=== PATIENT | male | born 1965 | race Caucasian/White ===

== ENCOUNTER 2021-01-08 14:27 | Inpatient (IN) ==
[2021-01-08] MEDS ORDERED: ONDANSETRON INJ 2 MG/ML 2 ML VIAL IV STA (15:01)
[2021-01-08] MEDS ORDERED: MULTI-VITAMIN INFUSION 10 ML, THIAMINE HCL 100 MG, FOLIC ACID 1 MG in SODIUM CHLORIDE 0... IV ONE (15:01)
[2021-01-08] MEDS ORDERED: LORazepam 2 MG/4 ML VIAL IV STA ×2 (15:01→17:12)
[2021-01-08 16:08] LABS: INR 1.1 (0.9-1.1); Prothrombin Time 10.9 Seconds (9.0-12.0)
[2021-01-08 16:16] LABS: Albumin Level 3.2 gm/dl (3.4-5.0); BUN Creatinine Ratio 22.8 (10-20); Blood Urea Nitrogen 26 mg/dl (7-18); Carbon Dioxide 24 mmol/L (21-32); Chloride 110 mmol/L (98-107); Est GFR (African American) 83.4 ml/min; Glucose 116 mg/dl (70-99); Potassium 4.7 mmol/L (3.5-5.1); Sodium 141 mmol/L (136-145)
[2021-01-08 16:25] LABS: Alanine Aminotransferase 30 U/L (12-78); Albumin Globulin Ratio 0.9 (0.9-2); Alkaline Phosphatase 81 U/L (45-117); Aspartate Aminotransferase 48 U/L (15-37); Bilirubin,Total 1.5 mg/dl (0.2-1); Globulin 3.6 gm/dl (2.5-4.0); Total Protein 6.8 gm/dl (6.4-8.2)
[2021-01-08 17:06] LABS: Basophils # (auto) 0.01 K/uL (0-0.2); Basophils % (auto) 0.1 %; Eosinophils # (auto) 0.05 K/uL (0-0.5); Eosinophils % (auto) 0.6 %; Hemoglobin 12.6 g/dL (14.0-18.0); Immature Granulocytes # (auto) 0.03 K/uL (0.00-0.02); Immature Granulocytes % (auto) 0.4 %; Lymphocytes # (auto) 0.79 K/uL (1.2-3.4); Mean Corpuscular Hemoglobin 34.4 pg (25-34); Mean Corpuscular Volume 98.4 fL (80-100); Mean Platelet Volume 9.7 fL (7.4-10.4); Monocytes # (auto) 0.56 K/uL (0.11-0.59); Monocytes % (auto) 7.1 %; Neutrophils # (auto) 6.43 K/uL (1.4-6.5); Neutrophils % (auto) 81.8 %; Platelet Count 161 K/uL (130-400); RDW Coefficient of Variation 13.6 % (11.5-14.5); Red Blood Count 3.66 M/uL (4.7-6.1); White Blood Count 7.87 K/uL (4.8-10.8)
[2021-01-08] MEDS ORDERED: GABAPENTIN 600 MG TAB PO ONE (17:12)
[2021-01-08] MEDS ORDERED: GABAPENTIN 1200MG ALCOHOL WITHDRAWAL LOAD PO STA ×2 (17:12→20:32)
--- NOTE | 2021-01-08 18:25 | History & Physical Report ---
Date of Service January 08, 2021 Assessment & Plan (1) Alcohol withdrawal: 29 hours after last alcohol drink on admission Chlordiazepoxide (hold for sedation) and gabapentin taper Lorazepam 1-3mg PO/IV PRN for symptoms per AWSS (2) Obstructive sleep apnea: May use own CPAP (3) Hyperlipidemia: Continue gabapentin 40mg PO TID (4) Hypertension: Continue lisinopril 10mg PO daily (5) Anxiety and depression: Continue sertraline 100mg PO daily Admission and Anticipated Discharge Date Admission Date: January 08, 2021 History of Present Illness Chief Complaint: Alcohol withdrawal Primary Care Provider: NO PCP Murray Hodge is a 55 year old male who presents to the ER with due to alcohol withdrawal. Last drink around 1pm. Drinking Wed -Wednesday "couple of pints of vodka a day". Previous alcohol withdrawals with hospitalization lasting a few days, outpatient rehabilitation and detox facilities requiring medication. No alcohol withdrawal seizures and never intubated. Having anxiety, tremors, shaking, sweating chills, nausea, diarrhea. Improved with lorazepam given in ER but feels it is wearing off after 1 hour of being given in the ER. Withdrawals normally last 2 days. No current hallucinations or confusion. 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 Allergies Allergy/AdvReac Type Severity Reaction Status Date / Time No Known Allergies Allergy Unverified 01/08/21 16:51 Home Medications Medication Instructions Recorded Confirmed Type atorvastatin 40 mg PO QAM 01/08/21 01/08/21 History gabapentin 300 mg PO TID 01/08/21 01/08/21 History lisinopril 10 mg PO QAM 01/08/21 01/08/21 History naproxen sodium [Aleve] 660 mg PO QAM 01/08/21 01/08/21 History omega-3 fatty acids [Fish Oil 1,000 mg PO QAM 01/08/21 01/08/21 History Concentrate] sertraline 100 mg PO QAM 01/08/21 01/08/21 History Past Med/Surg History Medical History (Updated 01/08/21 @ 18:49 by Santi Romo MD) Alcohol dependence Anxiety and depression Hyperlipidemia Hypertension Obstructive sleep apnea Surgical History (Updated 01/08/21 @ 18:38 by Santi Romo MD) H/O knee surgery ACL left, meniscus repair right History of back surgery discectomy History of nasal surgery broken nose Family History Other Family history non-contributory Social History (Updated 01/08/21 @ 18:39 by Santi Romo MD) Smoking Status: Former smoker Do You Dip or Chew Tobacco: No; Hx Alcohol Use: Yes Alcohol type: hard liquor Hx Substance Use: No Beliefs That Will Affect Care: None marital status: Current Living Situation: Family Other Information That Helps Us Care for You: No Feels Safe at Home: Yes Safety Concerns: Feels Safe At This Time Assistive Devices: CPAP Review of Systems Review of Systems: All systems reviewed & are unremarkable except as noted in HPI & below Physical Exam Constitutional: well developed and + morbidly obese; + not well nourished and no acute distress Eyes: PERRL, conjunctivae normal, anicteric sclerae ENMT: external ear and nose normal, oropharynx normal Respiratory: normal respiratory effort, lungs clear to auscultation Cardiovascular: Rate/Rhythm: regular rhythm and + tachycardic Heart Sounds: no murmur Vessels: no JVD Extremities: normal capillary refill; no calf tenderness and no pedal edema Gastrointestinal (Abdomen): normal bowel sounds, soft, nontender, no hepatosplenomegaly Musculoskeletal: no cyanosis or clubbing, extremities motor strength 5/5 Skin: no rashes, warm and dry Neurologic: moves all extremities and awake; no focal motor deficits and not confused Speech / Cognition: normal speech Motor/Sensory: no tremor Cranial Nerves: PERRL, EOM intact bilaterally, normal facial strength, able to elevate shoulders bilaterally and no nystagmus Psychiatric: A+Ox3, euthymic affect Results & Data Results & Data ([place]) Vital Signs (Past 12 Hours) Vital Signs Temp Pulse Pulse Resp BP BP Pulse Ox 01/08/21 17:19 125 H 25 H 173/91 H 94 01/08/21 14:29 36.0 C L 91 H 22 178/80 H 95 Diagnostic Findings XR chest 1V portable IMPRESSION: No acute process. Medications Administered ER Medications Given: Gabapentin 1200mg PO Lorazepam 2mg IV x2 Banana Bag Ondansetron 4mg IV Code Status & VTE Plan Code Status Full VTE Prophylaxis Plan VTE Prophylaxis will be ordered: No Reason for no VTE drug order: Treatment not indicated Reason for no VTE mechanical prophylaxis: Treatment not indicated PG Care Time/CCT Total # of Minutes Spent Total Time Spent with Patient: Total time spent is greater than 50% in coordination of care (as documented) at patient's floor/unit and/or counseling patient: Coding Level of Care Code 03190 Initial Inpt Care Lvl 2 Diagnoses Alcohol withdrawal F10.230 Complication of substance-induced condition: uncomplicated Obstructive sleep apnea G47.33 Hyperlipidemia E78.5 Hyperlipidemia type: unspecified Hypertension I10 Hypertension type: essential hypertension Anxiety and depression F41.9; F32.9 (1) Alcohol withdrawal Complication of substance-induced condition: uncomplicated Qualified Code(s): F10.230 - Alcohol dependence with withdrawal, uncomplicated (2) Hyperlipidemia Hyperlipidemia type: unspecified Qualified Code(s): E78.5 - Hyperlipidemia, unspecified (3) Hypertension Hypertension type: essential hypertension Qualified Code(s): I10 - Essential (primary) hypertension
[2021-01-08] MEDS ORDERED: chlordiazePOXIDE HCl 25 MG CAP PO STA (18:36)
--- NOTE | 2021-01-08 20:15 | XRay Report ---
XR chest 1V portable HISTORY: 55 years-old Male tachypnea acute tachypnea. COMPARISON: 11/17/2020 TECHNIQUE: Portable AP view of the chest FINDINGS: Moderate cardiomegaly. No pneumothorax, pleural effusion, airspace consolidation or overt pulmonary e mel. Bones of the chest appear grossly intact. IMPRESSION: No acute process. ACT 112: Negative or not required by law. The above report was generated using voice recognition software. It may contain grammatical, syntax o r spelling errors. Electronically signed by: Pierce Livingston M.D. 01/08/2021 8:14 PM
[2021-01-08] MEDS ORDERED: ATIVAN IV ALCOHOL WITHDRAWL IV PRN (20:32)
[2021-01-08] MEDS ORDERED: chlordiazePOXIDE ALCOHOL WITHDRAWL 50MG PO STA (20:32)
[2021-01-08] MEDS ORDERED: LORazepam 3 MG/6 ML VIAL IV PRN (20:32)
[2021-01-08] MEDS ORDERED: POLYETHYLENE (MIRALAX) 17 GM PACK PO PRN (20:32)
[2021-01-08] MEDS ORDERED: LORazepam 1 MG TAB PO PRN (20:32)
[2021-01-08] MEDS ORDERED: LORazepam 2 MG/4 ML VIAL IV PRN (20:32)
[2021-01-08] MEDS ORDERED: ONDANSETRON INJ 2 MG/ML 2 ML VIAL IV PRN (20:32)
[2021-01-08] MEDS ORDERED: ACETAMINOPHEN 325 MG TAB PO PRN (20:32)
--- NOTE | 2021-01-08 20:54 | Emergency Department Note ---
History of Present Illness General Chief complaint: Alcohol Withdrawal Stated complaint: ALCHOHOL WITHDRAWAL Source: patient, family () and RN notes reviewed Mode of arrival: ambulatory Limitations: no limitations History of Present Illness Provider complaint: Alcohol withdrawal Maximum Pain Intensity: 8 This pt is a 56 yo male who presents to the ED with c/o ETOH withdrawal. Pt is apparently in this area for work and his family lives in [place]. He did not show up for his son's HS graduation, so his became concerned as he has a h/o heavy ETOH use. arrived to find him "passed out" in bed, with several empty vodka bottles in the apartment. She refused to let him get more and he is now shaking. He has done this in the past, but denies ETOH w/d seizures. Home Medications Medication Instructions Recorded Confirmed Type atorvastatin 40 mg PO QAM 01/08/21 01/08/21 History lisinopril 10 mg PO QAM 01/08/21 01/08/21 History naproxen sodium [Aleve] 660 mg PO QAM 01/08/21 01/08/21 History omega-3 fatty acids [Fish Oil 1,000 mg PO QAM 01/08/21 01/08/21 History Concentrate] sertraline 100 mg PO QAM 01/08/21 01/08/21 History chlordiazepoxide HCl 25 mg PO Q12H PRN #8 cap 01/10/21 Rx Allergies Allergy/AdvReac Type Severity Reaction Status Date / Time No Known Allergies Allergy Unverified 01/08/21 16:51 Past Med/Surg History Medical History Alcohol dependence Anxiety and depression Hyperlipidemia Hypertension Obstructive sleep apnea Surgical History H/O knee surgery ACL left, meniscus repair right History of back surgery discectomy History of nasal surgery broken nose Family History Other Family history non-contributory Social History Smoking Status: Former smoker Hx Alcohol Use: Yes Alcohol type: hard liquor Hx Substance Use: No Communication Ability: Effective Beliefs That Will Affect Care: None marital status: Current Living Situation: Family Feels Safe at Home: Yes Assistive Devices: CPAP Review of Systems See HPI for pertinent positives & negatives. and A total of 10 systems reviewed and were otherwise negative Physical Exam Vital Signs Vital Signs - 24 hr 01/08/21 14:29 01/08/21 17:19 01/08/21 18:32 Temperature 36.0 C L Temperature Source Temporal Artery Scan Pulse Rate 91 H Pulse Rate [Right Finger] 125 H 108 H Respiratory Rate 22 25 H 20 Respiratory Effort / Characteristics Non-Labored Spontaneous Spontaneous Non-Labored Spontaneous Respiratory Depth Normal Normal Blood Pressure 178/80 H Blood Pressure [Right Arm] 173/91 H 146/81 H Blood Pressure Mean 112 Blood Pressure Mean [Right Arm] 118 102 Blood Pressure Position [Right Arm] Lying Lying Pulse Oximetry 95 94 94 Oxygen Delivery Method Room Air Room Air Room Air Sepsis Recent Fever Within 48 Hours No Sepsis New/Unexplained Change in Mental Status N/A Sepsis Action Taken by Nursing No Action Required Vital signs reviewed. tachycardia, hypertensive General: Disheveled 56 yo obese male, shaking HEENT: No scleral icterus, PERRLA, neck supple. Atraumatic. Cardiovascular: Regular but tachycardic, no extra sounds. Pulmonary: Clear to auscultation bilaterally, normal work of breathing. Abdomen: Soft, nontender, nondistended, positive bowel sounds. Musculoskeletal: Atraumatic, no peripheral edema. Neurologic: Patient awake alert and oriented x 3 Skin: Warm, diaphoretic, no rash Course Administered Medications Discontinued Medications Atorvastatin Calcium (Atorvastatin 40 Mg Tab) 40 mg PO QAM [facility] Stop: 02/08/21 08:59 Last Admin: 01/10/21 09:04 Dose: 40 mg Documented by: [id number] Admin: 01/09/21 08:26 Dose: 40 mg Documented by: [id number] Chlordiazepoxide HCl (Chlordiazepoxide Hcl 25 Mg Cap) 50 mg PO NOW STA Stop: 01/08/21 18:37 Last Admin: 01/08/21 19:18 Dose: 50 mg Documented by: [id number] Chlordiazepoxide HCl (Chlordiazepoxide Hcl 25 Mg Cap) 50 mg PO Q8H [facility]; Taper Stop: 01/11/21 17:59 Last Admin: 01/10/21 09:05 Dose: 50 mg Documented by: [id number] Admin: 01/10/21 01:33 Dose: 50 mg Documented by: [id number] Admin: 01/09/21 17:55 Dose: 50 mg Documented by: [id number] Admin: 01/09/21 12:04 Dose: 50 mg Documented by: [id number] Admin: 01/09/21 05:09 Dose: 50 mg Documented by: [id number] Admin: 01/08/21 23:37 Dose: 50 mg Documented by: [id number] Fish Oil ([place]-3 (Purified Fish Oil) 1 Gm Cap) 1 gm PO QAM [facility] Stop: 02/08/21 08:59 Last Admin: 01/10/21 09:04 Dose: 1 gm Documented by: [id number] Admin: 01/09/21 08:26 Dose: 1 gm Documented by: [id number] Gabapentin (Gabapentin 1200mg Alcohol Withdrawal Load) 1 ea PO NOW STA; Protocol Stop: 01/08/21 17:13 Last Admin: 01/08/21 19:01 Dose: Not Given Documented by: [id number] Gabapentin (Gabapentin 600 Mg Tab) 1,200 mg PO NOW ONE Stop: 01/08/21 17:13 Last Admin: 01/08/21 17:25 Dose: 1,200 mg Documented by: [id number] Gabapentin (Gabapentin 600 Mg Tab) 600 mg PO Q6H [facility] Stop: 01/09/21 06:01 Last Admin: 01/09/21 05:10 Dose: 600 mg Documented by: [id number] Admin: 01/08/21 23:37 Dose: 600 mg Documented by: [id number] Gabapentin (Gabapentin 600 Mg Tab) 600 mg PO Q8H [facility] Stop: 01/10/21 06:01 Last Admin: 01/10/21 06:16 Dose: 600 mg Documented by: [id number] Admin: 01/09/21 21:00 Dose: 600 mg Documented by: [id number] Admin: 01/09/21 14:08 Dose: 600 mg Documented by: [id number] Multivitamins 10 ml/ Thiamine HCl 100 mg/ Folic Acid 1 mg/Sodium Chloride 1,011.2 mls @ 1,011.2 mls/hr IV .Q1H ONE Stop: 01/08/21 16:00 Last Infusion: 01/08/21 16:50 Dose: 0 mls/hr Documented by: [id number] Admin: 01/08/21 15:46 Dose: 1,011.2 mls/hr Documented by: [id number] Lorazepam (Ativan) 2 mg in 4 mls @ 4 mls/min IV NOW STA Stop: 01/08/21 15:02 Last Admin: 01/08/21 15:36 Dose: 4 mls/min Documented by: [id number] Lorazepam (Ativan) 2 mg in 4 mls @ 4 mls/min IV NOW STA Stop: 01/08/21 17:13 Last Admin: 01/08/21 17:25 Dose: 4 mls/min Documented by: [id number] Lorazepam (Ativan) 1 mg in 2 mls @ 2 mls/min IV UD PRN; Protocol PRN Reason: EtOH Withdrawl AWSS Score 6,7 Stop: 02/07/21 20:31 Last Admin: 01/09/21 21:01 Dose: 2 mls/min Documented by: [id number] Admin: 01/09/21 16:10 Dose: 2 mls/min Documented by: [id number] Admin: 01/09/21 12:17 Dose: 2 mls/min Documented by: [id number] Admin: 01/09/21 08:40 Dose: 2 mls/min Documented by: [id number] Admin: 01/08/21 21:09 Dose: 2 mls/min Documented by: [id number] Lactated Ringer's (Lr) 1,000 mls @ 125 mls/hr IV .Q8H [facility] Stop: 02/07/21 20:31 Last Admin: 01/10/21 06:17 Dose: 125 mls/hr Documented by: [id number] Infusion: 01/10/21 04:51 Dose: 125 mls/hr Documented by: [id number] Admin: 01/09/21 20:51 Dose: 125 mls/hr Documented by: [id number] Infusion: 01/09/21 20:05 Dose: 125 mls/hr Documented by: [id number] Admin: 01/09/21 12:05 Dose: 125 mls/hr Documented by: [id number] Infusion: 01/09/21 12:05 Dose: 125 mls/hr Documented by: [id number] Admin: 01/09/21 05:07 Dose: 125 mls/hr Documented by: [id number] Infusion: 01/09/21 05:07 Dose: 125 mls/hr Documented by: [id number] Admin: 01/08/21 21:17 Dose: 125 mls/hr Documented by: [id number] Lisinopril (Lisinopril 10 Mg Tab) 10 mg PO [facility] Stop: 02/08/21 08:59 Last Admin: 01/10/21 09:05 Dose: 10 mg Documented by: [id number] Admin: 01/09/21 08:26 Dose: 10 mg Documented by: [id number] Ondansetron HCl (Ondansetron Inj 2 Mg/Ml 2 Ml Vial) 4 mg IV NOW [facility] Stop: 01/08/21 15:02 Last Admin: 01/08/21 15:36 Dose: 4 mg Documented by: [id number] Sertraline HCl (Sertraline Hcl 100 Mg Tablet) 100 mg PO [facility] Stop: 02/08/21 08:59 Last Admin: 01/10/21 09:05 Dose: 100 mg Documented by: [id number] Admin: 01/09/21 08:26 Dose: 100 mg Documented by: [id number] Thiamine HCl (Thiamine Hcl 100 Mg Tab) 100 mg PO [facility] Stop: 02/07/21 20:31 Last Admin: 01/10/21 09:05 Dose: 100 mg Documented by: [id number] Admin: 01/09/21 08:27 Dose: 100 mg Documented by: [id number] Admin: 01/08/21 21:23 Dose: 100 mg Documented by: [id number] Critical Care Time Critical Care Time: Yes I have personally spent 32 minutes of critical care time in the direct management of this patient. This was a life/limb threatening event. This 32 minutes is in excess of all separately billable procedures. Medical Decision Making Differential Diagnosis Overdose, ETOH w/d, toxicologic, infection, hypoglycemia, electrolyte abnormalities, cardiac sources, intracerebral event, neurologic, trauma, as well as other pathologies. Medical Records Attestation: I reviewed the patient's medical records. Home Medications Current Medication List: was personally reviewed by me Laboratory Data Attestation: I reviewed the patient's lab results. Result diagrams: 01/08/21 15:37 01/09/21 06:04 Lab Results 01/08/21 01/08/21 01/08/21 Range/Units 15:37 15:37 15:37 WBC (4.8-10.8) K/uL RBC (4.7-6.1) M/uL Hgb (14.0-18.0) g/dL Hct (42-52) % MCV (80-100) fL MCH (25-34) pg MCHC (32-36) g/dL RDW Std Deviation (36.4-46.3) fL RDW Coeff of Oksana (11.5-14.5) % Plt Count (130-400) K/uL MPV (7.4-10.4) fL Immature Gran % (Auto) % Neut % (Auto) % Lymph % (Auto) % [place] % (Auto) % Eos % (Auto) % Baso % (Auto) % Neut # (Auto) (1.4-6.5) K/uL Lymph # (Auto) (1.2-3.4) K/uL Bath # (Auto) (0.11-0.59) K/uL Eos # (Auto) (0-0.5) K/uL Baso # (Auto) (0-0.2) K/uL Immature Gran # (Auto) (0.00-0.02) K/uL PT 10.9 (9.0-12.0) Seconds INR 1.1 (0.9-1.1) Sodium 141 (136-145) mmol/L Potassium 4.7 (3.5-5.1) mmol/L Chloride 110 H (98-107) mmol/L Carbon Dioxide 24 (21-32) mmol/L Anion Gap 7.0 (3-11) BUN 26 H (7-18) mg/dl Creatinine 1.14 (0.6-1.4) mg/dl Est Cr Clr Drug Dosing Not Reportable Est GFR ( Amer) 83.4 ml/min Est GFR (Non-Af Amer) 72.0 ml/min BUN/Creatinine Ratio 22.8 H (10-20) Glucose 116 H (70-99) mg/dl Calcium 8.0 L (8.5-10.1) mg/dl Total Bilirubin 1.5 H (0.2-1) mg/dl AST 48 H (15-37) U/L ALT 30 (12-78) U/L Alkaline Phosphatase 81 (45-117) U/L Total Protein 6.8 (6.4-8.2) gm/dl Albumin 3.2 L (3.4-5.0) gm/dl Globulin 3.6 (2.5-4.0) gm/dl Albumin/Globulin Ratio 0.9 (0.9-2) Ethyl Alcohol mg/dL < 3.0 (0-3) mg/dl COVID-19 Eval Order SARS-CoV-2 (PCR) (Negative) 01/08/21 01/08/21 01/08/21 Range/Units 15:37 15:37 15:37 WBC 7.87 (4.8-10.8) K/uL RBC 3.66 L (4.7-6.1) M/uL Hgb 12.6 L (14.0-18.0) g/dL Hct 36.0 L (42-52) % MCV 98.4 (80-100) fL MCH 34.4 H (25-34) pg MCHC 35.0 (32-36) g/dL RDW Std Deviation 49.0 H (36.4-46.3) fL RDW Coeff of Oksana 13.6 (11.5-14.5) % Plt Count 161 (130-400) K/uL MPV 9.7 (7.4-10.4) fL Immature Gran % (Auto) 0.4 % Neut % (Auto) 81.8 % Lymph % (Auto) 10.0 % Bath % (Auto) 7.1 % Eos % (Auto) 0.6 % Baso % (Auto) 0.1 % Neut # (Auto) 6.43 (1.4-6.5) K/uL Lymph # (Auto) 0.79 L (1.2-3.4) K/uL Bath # (Auto) 0.56 (0.11-0.59) K/uL Eos # (Auto) 0.05 (0-0.5) K/uL Baso # (Auto) 0.01 (0-0.2) K/uL Immature Gran # (Auto) 0.03 H (0.00-0.02) K/uL PT (9.0-12.0) Seconds INR (0.9-1.1) Sodium (136-145) mmol/L Potassium (3.5-5.1) mmol/L Chloride (98-107) mmol/L Carbon Dioxide (21-32) mmol/L Anion Gap (3-11) BUN (7-18) mg/dl Creatinine (0.6-1.4) mg/dl Est Cr Clr Drug Dosing Est GFR ( Amer) ml/min Est GFR (Non-Af Amer) ml/min BUN/Creatinine Ratio (10-20) Glucose (70-99) mg/dl Calcium (8.5-10.1) mg/dl Total Bilirubin (0.2-1) mg/dl AST (15-37) U/L ALT (12-78) U/L Alkaline Phosphatase (45-117) U/L Total Protein (6.4-8.2) gm/dl Albumin (3.4-5.0) gm/dl Globulin (2.5-4.0) gm/dl Albumin/Globulin Ratio (0.9-2) Ethyl Alcohol mg/dL (0-3) mg/dl COVID-19 Eval Order Covid19 at [facility] SARS-CoV-2 (PCR) NEGATIVE (Negative) Imaging Data Radiologist's Impression: Chest X-Ray 01/08/21 18:12 XR chest 1V portable HISTORY: 55 years-old Male tachypnea acute tachypnea. COMPARISON: 11/17/2020 TECHNIQUE: Portable AP view of the chest FINDINGS: Moderate cardiomegaly. No pneumothorax, pleural effusion, airspace consolidation or overt pulmonary edema. Bones of the chest appear grossly intact. IMPRESSION: No acute process. ACT 112: Negative or not required by law. The above report was generated using voice recognition software. It may contain grammatical, syntax or spelling errors. Electronically signed by: Pierce Livingston M.D. 01/08/2021 8:14 PM Blood Pressure Blood Pressure Findings: Elevated blood pressure Blood Pressure Disposition: further management by hospitalist MDM Narrative This pt was evaluated and appeared to be in no distress. IV access was obtained and lab work was drawn. An order for cardiac monitoring was placed and pt was noted to be in sinus tachycardia at 125bpm. IVF were initiated and pt was medicated with IV ativan 2 mg. Gabapentin po load was ordered as well as a banana bag. Pt's lab work was reassuring but d/t symptoms of w/d pt was d/w hospitalist for further management. Pt and were informed of the plan and agreed. Impression & Plan Alcohol withdrawal Discharge Plan Visit Data Chief Complaint: Alcohol Withdrawal Stated Complaint: ALCHOHOL WITHDRAWAL ED Provider: Sara Almanza Discharge Problem: Alcohol withdrawal Patient Disposition: Admitted As Inpatient Condition: Good Discharge Instructions Interventions: ED Discharge Assessment Last Done: 01/08/21 20:10 Discharge Problem: Alcohol withdrawal Qualifiers: Complication of substance-induced condition: uncomplicated Qualified Code(s): F10.230 - Alcohol dependence with withdrawal, uncomplicated
[2021-01-08] MEDS: LORazepam 1 MG/2 ML VIAL IV PRN (21:09)
[2021-01-08] MEDS: LACTATED RINGER'S 1,000 ML IV SCH (21:17)
[2021-01-08] MEDS: THIAMINE HCL 100 MG TAB PO SCH (21:23)
[2021-01-08] MEDS ORDERED: GABAPENTIN 600 MG TAB PO SCH (23:13)
[2021-01-08] MEDS: chlordiazePOXIDE HCl 25 MG CAP PO SCH (23:37)
[2021-01-08] MEDS: GABAPENTIN 600 MG TAB PO SCH (23:37)
[2021-01-09] MEDS: LACTATED RINGER'S 1,000 ML IV SCH ×3 (05:07→20:51)
[2021-01-09] MEDS: chlordiazePOXIDE HCl 25 MG CAP PO SCH ×3 (05:09→17:55)
[2021-01-09] MEDS: GABAPENTIN 600 MG TAB PO SCH ×3 (05:10→21:00)
[2021-01-09 07:06] LABS: Albumin Level 2.7 gm/dl (3.4-5.0); Creatinine Clr Calc Pharmacy 154.7 ml/min; Est GFR (African American) 102.7 ml/min; Est GFR (Non-African American) 88.6 ml/min; Potassium 4.2 mmol/L (3.5-5.1)
[2021-01-09 07:22] LABS: Albumin Globulin Ratio 0.9 (0.9-2); Bilirubin,Total 2.7 mg/dl (0.2-1); Globulin 3.1 gm/dl (2.5-4.0); Total Protein 5.8 gm/dl (6.4-8.2)
[2021-01-09] MEDS: ATORVASTATIN 40 MG TAB PO SCH (08:26)
[2021-01-09] MEDS: lisinopril 10 MG TAB PO SCH (08:26)
[2021-01-09] MEDS: OMEGA-3 (PURIFIED FISH OIL) 1 GM CAP PO SCH (08:26)
[2021-01-09] MEDS: SERTRALINE HCL 100 MG TABLET PO SCH (08:26)
[2021-01-09] MEDS: THIAMINE HCL 100 MG TAB PO SCH (08:27)
[2021-01-09] MEDS: LORazepam 1 MG/2 ML VIAL IV PRN ×4 (08:40→21:01)
[2021-01-09] MEDS ORDERED: GABAPENTIN 600 MG TAB PO SCH (13:13)
--- NOTE | 2021-01-09 16:24 | Hospitalist Progress Note ---
Date of Service January 09, 2021 Assessment & Plan (1) Alcohol withdrawal: over 48 hours into detox, doing fairly well, no tremor, no seizures Chlordiazepoxide (hold for sedation) and gabapentin taper Lorazepam 1-3mg PO/IV PRN for symptoms per AWSS, not requiring much at all likely okay for discharge by tomorrow evening (2) Obstructive sleep apnea: May use own CPAP (3) Hyperlipidemia: Continue gabapentin 40mg PO TID (4) Hypertension: Continue lisinopril 10mg PO daily (5) Anxiety and depression: Continue sertraline 100mg PO daily Admission and Anticipated Discharge Date Admission Date: January 08, 2021 Subjective patient doing okay, no tremors, no seizure like activity he has sinus tachycardia at rest which is expected with withdrawal he is eating well, no GI issues, no fever, no headache he is steady on his feet when he has to get up reviewed labs, stable discussed disposition, he would like to try to go home tomorrow, his son has a graduation republican on Wednesday in [place] Review of Systems Review of Systems: All systems reviewed & are unremarkable except as noted in Subjective Physical Exam Constitutional: well developed, + obese and comfortable; no acute distress Neck: trachea midline, no thyromegaly Respiratory: normal respiratory effort, lungs clear to auscultation Cardiovascular: Rate/Rhythm: regular rhythm and + tachycardic Heart Sounds: normal S1 and normal S2; no murmur Vessels: no JVD Extremities: normal capillary refill; no edema Gastrointestinal (Abdomen): normal bowel sounds, soft, nontender, no hepatosplenomegaly Musculoskeletal: no cyanosis or clubbing, extremities motor strength 5/5 Skin: no rashes, warm and dry Neurologic: patellar DTR's 2+ bilat, sensation intact and PERRL, EOMI, accommodation nl, no face palsy, no dysarthria Psychiatric: A+Ox3, euthymic affect Lymphatic: no cervical or axillary lymphadenopathy Results & Data Results & Data ([facility]) Vital Signs (Past 12 Hours) Vital Signs Temp Pulse Pulse Pulse Resp BP Pulse Ox 01/09/21 12:11 36.7 C 109 H 20 113/69 84 L 01/09/21 07:53 80 01/09/21 06:58 105 H 21 175/81 H 96 Laboratory Results Laboratory Results - last 24 hr 01/08/21 01/08/2101/08/21 15:37 15:37 15:37 WBC 7.87 RBC 3.66 L Hgb 12.6 L Hct 36.0 L MCV 98.4 MCH 34.4 H MCHC 35.0 RDW Std Deviation 49.0 H RDW Coeff of Oksana 13.6 Plt Count 161 MPV 9.7 Immature Gran % (Auto) 0.4 Neut % (Auto) 81.8 Lymph % (Auto) 10.0 [place] % (Auto) 7.1 Eos % (Auto) 0.6 Baso % (Auto) 0.1 Neut # (Auto) 6.43 Lymph # (Auto) 0.79 L [place] # (Auto) 0.56 Eos # (Auto) 0.05 Baso # (Auto) 0.01 Immature Gran # (Auto) 0.03 H Sodium Potassium Chloride Carbon Dioxide Anion Gap BUN Creatinine Est Cr Clr Drug Dosing Est GFR ( Amer) Est GFR (Non-Af Amer) BUN/Creatinine Ratio Glucose Calcium Total Bilirubin 1.5 H AST 48 H ALT 30 Alkaline Phosphatase 81 Total Protein 6.8 Albumin Globulin 3.6 Albumin/Globulin Ratio 0.9 SARS-CoV-2 (PCR) NEGATIVE 01/09/21 06:04 WBC RBC Hgb Hct MCV MCH MCHC RDW Std Deviation RDW Coeff of Oskana Plt Count MPV Immature Gran % (Auto) Neut % (Auto) Lymph % (Auto) [place] % (Auto) Eos % (Auto) Baso % (Auto) Neut # (Auto) Lymph # (Auto) [place] # (Auto) Eos # (Auto) Baso # (Auto) Immature Gran # (Auto) Sodium 140 Potassium 4.2 Chloride 109 H Carbon Dioxide 29 Anion Gap 3.0 BUN 23 H Creatinine 0.96 Est Cr Clr Drug Dosing 154.7 Est GFR ( Amer) 102.7 Est GFR (Non-Af Amer) 88.6 BUN/Creatinine Ratio 24.0 H Glucose 116 H Calcium 8.0 L Total Bilirubin 2.7 H D AST 49 H ALT 25 Alkaline Phosphatase 98 Total Protein 5.8 L Albumin 2.7 L Globulin 3.1 Albumin/Globulin Ratio 0.9 SARS-CoV-2 (PCR) Medications Administered Current Inpatient Medications Acetaminophen (Acetaminophen 325 Mg Tab) 650 mg PO Q4H PRN PRN Reason: Pain or Fever Stop: 02/07/21 20:31 Atorvastatin Calcium (Atorvastatin 40 Mg Tab) 40 mg PO QAM [facility] Stop: 02/08/21 08:59 Last Admin: 01/09/21 08:26 Dose: 40 mg Documented by: Chlordiazepoxide HCl (Chlordiazepoxide Hcl 25 Mg Cap) 50 mg PO Q6H [facility], [facility]1983; Taper Stop: 01/11/21 17:59 Last Admin: 01/09/21 12:04 Dose: 50 mg Documented by: Chlordiazepoxide HCl (Chlordiazepoxide Hcl 10 Mg Cap) 10 mg PO Q12H [facility]1983 Stop: 01/12/21 10:01 Fish Oil ([place]-3 (Purified Fish Oil) 1 Gm Cap) 1 gm PO QAM [facility]1983 Stop: 02/08/21 08:59 Last Admin: 01/09/21 08:26 Dose: 1 gm Documented by: Gabapentin (Gabapentin 600 Mg Tab) 600 mg PO Q8H [facility]1983 Stop: 01/10/21 06:01 Last Admin: 01/09/21 14:08 Dose: 600 mg Documented by: Gabapentin (Gabapentin 600 Mg Tab) 600 mg PO Q12H [facility]1983 Stop: 01/11/21 06:01 Gabapentin (Gabapentin 600 Mg Tab) 600 mg PO Q24H [facility] Stop: 01/12/21 06:01 Lorazepam (Ativan) 1 mg in 2 mls @ 2 mls/min IV UD PRN; Protocol PRN Reason: EtOH Withdrawl AWSS Score 6,7 Stop: 02/07/21 20:31 Last Admin: 01/09/21 16:10 Dose: 2 mls/min Documented by: Lorazepam (Ativan) 2 mg in 4 mls @ 4 mls/min IV UD PRN; Protocol PRN Reason: EtOH Withdrawl AWSS Score 8,9 Stop: 02/07/21 20:31 Lorazepam (Ativan) 3 mg in 6 mls @ 4 mls/min IV ONCE PRN; Protocol PRN Reason: EtOH Withdrawl AWSS Score >=10 Stop: 02/07/21 20:31 Lactated Ringer's (Lr) 1,000 mls @ 125 mls/hr IV .Q8H COLLEEN Stop: 02/07/21 20:31 Last Admin: 01/09/21 12:05 Dose: 125 mls/hr Documented by: Lisinopril (Lisinopril 10 Mg Tab) 10 mg PO QAM [facility] Stop: 02/08/21 08:59 Last Admin: 01/09/21 08:26 Dose: 10 mg Documented by: Lorazepam (Lorazepam 1 Mg Tab) 1 - 3 mg PO UD PRN; Protocol PRN Reason: EtoH Withdrawal AWSS 6-10+ Stop: 02/07/21 20:31 Ondansetron HCl (Ondansetron Inj 2 Mg/Ml 2 Ml Vial) 4 mg IV Q6H PRN PRN Reason: Nausea Stop: 02/07/21 20:31 Polyethylene Glycol (Polyethylene (Miralax) 17 Gm Pack) 17 gm PO DAILY PRN PRN Reason: Constipation Stop: 02/07/21 20:31 Sertraline HCl (Sertraline Hcl 100 Mg Tablet) 100 mg PO [facility] Stop: 02/08/21 08:59 Last Admin: 01/09/21 08:26 Dose: 100 mg Documented by: Thiamine HCl (Thiamine Hcl 100 Mg Tab) 100 mg PO [facility] Stop: 02/07/21 20:31 Last Admin: 01/09/21 08:27 Dose: 100 mg Documented by: PG Care Time/CCT Total # of Minutes Spent Total Time Spent with Patient: Total time spent is greater than 50% in coordina tion of care (as documented) at patient's floor/unit and/or counseling patient: Coding Level of Care Code 61285 Subseq Hosp Care Lvl 2 Diagnoses Alcohol withdrawal F10.230 Complication of substance-induced condition: uncomplicated Obstructive sleep apnea G47.33 Hyperlipidemia E78.5 Hyperlipidemia type: unspecified Hypertension I10 Hypertension type: essential hypertension Anxiety and depression F41.9; F32.9 (1) Alcohol withdrawal Complication of substance-induced condition: uncomplicated Qualified Code(s): F10.230 - Alcohol dependence with withdrawal, uncomplicated (2) Hyperlipidemia Hyperlipidemia type: unspecified Qualified Code(s): E78.5 - Hyperlipidemia, unspecified (3) Hypertension Hypertension type: essential hypertension Qualified Code(s): I10 - Essential (primary) hypertension
[2021-01-10] MEDS: chlordiazePOXIDE HCl 25 MG CAP PO SCH ×2 (01:33→09:05)
[2021-01-10] MEDS: GABAPENTIN 600 MG TAB PO SCH (06:16)
[2021-01-10] MEDS: LACTATED RINGER'S 1,000 ML IV SCH (06:17)
[2021-01-10] MEDS: OMEGA-3 (PURIFIED FISH OIL) 1 GM CAP PO SCH (09:04)
[2021-01-10] MEDS: ATORVASTATIN 40 MG TAB PO SCH (09:04)
[2021-01-10] MEDS: THIAMINE HCL 100 MG TAB PO SCH (09:05)
[2021-01-10] MEDS: SERTRALINE HCL 100 MG TABLET PO SCH (09:05)
[2021-01-10] MEDS: lisinopril 10 MG TAB PO SCH (09:05)
--- NOTE | 2021-01-10 10:40 | Discharge Summary ---
Date of Service January 10, 2021 Admission HPI Per Admitting Provider Murray Hodge is a 55 year old male who presents to the ER with due to alcohol withdrawal. Last drink around 1pm. Drinking Wed -Wednesday "couple of pints of vodka a day". Previous alcohol withdrawals with hospitalization lasting a few days, outpatient rehabilitation and detox facilities requiring medication. No alcohol withdrawal seizures and never intubated. Having anxiety, tremors, shaking, sweating chills, nausea, diarrhea. Improved with lorazepam given in ER but feels it is wearing off after 1 hour of being given in the ER. Withdrawals normally last 2 days. No current hallucinations or confusion. 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 Principal Diagnosis Alcohol withdrawal Discharge Exam Constitutional well developed, + obese and comfortable; no acute distress Neck trachea midline, no thyromegaly Respiratory normal respiratory effort, lungs clear to auscultation Cardiovascular Rate/Rhythm: regular rhythm and + tachycardic Heart Sounds: normal S1 and normal S2; no murmur Vessels: no JVD Extremities: normal capillary refill; no edema Gastrointestinal (Abdomen) normal bowel sounds, soft, nontender, no hepatosplenomegaly Musculoskeletal no cyanosis or clubbing, extremities motor strength 5/5 Skin no rashes, warm and dry Neurologic patellar DTR's 2+ bilat, sensation intact and PERRL, EOMI, accommodation nl, no face palsy, no dysarthria Psychiatric A+Ox3, euthymic affect Lymphatic no cervical or axillary lymphadenopathy Discharge Data Allergies Allergy/AdvReac Type Severity Reaction Status Date / Time No Known Allergies Allergy Unverified 01/08/21 16:51 Consultations 01/08/21 18:10 ED Decision to Admit Stat Hospital Course (1) Alcohol withdrawal: over 72 hours into detox, doing fairly well, no tremor, no seizures Chlordiazepoxide (hold for sedation) and gabapentin taper Lorazepam 1-3mg PO/IV PRN for symptoms per AWSS, not requiring much at all discharge to home today, provided with script for Gabapentin and for Librium his home physician had prescribed naltrexone to try to limit alcohol intake (2) Obstructive sleep apnea: May use own CPAP (3) Hyperlipidemia: Continue gabapentin 40mg PO TID (4) Hypertension: Continue lisinopril 10mg PO daily (5) Anxiety and depression: Continue sertraline 100mg PO daily Total Time Total Time Spent Total Time Spent (In Minutes): 20 Total Time Includes: Examination of the Patient, Discharge Planning and Medication Reconciliation Discharge Plan Discharge Items Patient Disposition: Home - Self-Care Reason For Visit: ALCHOHOL WITHDRAWAL Discharge Diagnosis: Alcohol abuse Alcohol withdrawal Condition on Discharge: Good Goals: stay sober complete Gabapentin taper, use Librium as needed Activity: Resume your previous activity Weightbearing: Full weightbearing Non-emergency contact: Primary Care Provider Call non-emergency contact if: you have any medication questions and your symptoms worsen Follow-up/Referrals: PCP,NO [Primary Care Provider] - Diet: Heart Healthy Addtl Attending Provider Instructions: Medications: - GABAPENTIN: take 600mg this evening and then 600mg tomorrow morning then stop on your medication list, you were prescribed 300mg three times a day, if you were taking that already you can resume on Wednesday, if you were not taking that then ignore - CHLORDIAZEPOXIDE (Librium): you can take 25mg every 12 hours as needed for withdrawal symptoms such as tremors, anxiety - NALTREXONE: new prescription sent in by doctor from home, this is intended to keep you from drinking, you can start this tomorrow morning Alcohol withdrawal: no signs of severe withdrawal at this point, vitals stable, labs were stable, eating/drinking well use the above medications as prescribed please use resources back home to help you stay sober and if you are going to be working in [place], find local resources such as AA meetings to help you stay sober if you continue to drink you will damage your liver and develop cirrhosis once cirrhosis develops it is irreversible because it is scar tissue dying from cirrhosis is a miserable , you are young, you can stop drinking now and prevent further damage, please make every effort to stay sober Pending Studies at Discharge: No Stand-Alone Forms: My [email or web address], Smoking Cessation Medications and DC Order Prescriptions: New gabapentin 600 mg Tablet 600 mg PO UD 2 Days Qty: 2 RF: 0 chlordiazepoxide HCl 25 mg capsule 25 mg PO Q12H PRN (Reason: alcohol withdrawal) Qty: 8 RF: 0 Continued atorvastatin 40 mg tablet 40 mg PO QAM RF: 0 lisinopril 10 mg tablet 10 mg PO QAM RF: 0 sertraline 100 mg tablet 100 mg PO QAM RF: 0 naproxen sodium [Aleve] 220 mg Capsule 660 mg PO QAM RF: 0 omega-3 fatty acids [Fish Oil Concentrate] 1,000 mg Capsule 1,000 mg PO QAM RF: 0 Discontinued gabapentin 300 mg capsule 300 mg PO TID RF: 0 Discharge Orders: Discharge Order (Routine); Ordered 01/10/21 Ordered By: Scott Brewster/Other Patient Handouts: Alcohol Addiction Admission Data Admit Date/Time: 01/08/21 18:36 Attending Provider: Scott Arteaga Admit Provider: Santi Romo Primary Care Provider: PCP,NO Other Providers: Santi Romo Other Interventions: Discharge Summary Assessment (RN) Last Done: 01/10/21 11:20 Coding Level of Care Code D/C Day Management <30 mins Diagnoses Alcohol withdrawal F10.230 Complication of substance-induced condition: uncomplicated Obstructive sleep apnea G47.33 Hyperlipidemia E78.5 Hyperlipidemia type: unspecified Hypertension I10 Hypertension type: essential hypertension Anxiety and depression F41.9; F32.9
[2021-01-10] MEDS ORDERED: GABAPENTIN 600 MG TAB PO SCH ×2 (17:13→18:00)
[2021-01-12] MEDS ORDERED: GABAPENTIN 600 MG TAB PO SCH ×2 (05:13→06:00)
== END 2021-01-10 12:18 | disposition home or self-care (01) | DRG 897 ==
LOC: ED 14:27 → 2E 18:36 → SUATTDRO 18:36 → 2E 20:10

== ENCOUNTER 2021-08-19 13:05 | Inpatient (IN) ==
[2021-08-19] MEDS ORDERED: FAMOTIDINE 20MG IV PUSH 20 MG/5 ML SYR IV STA (13:37)
[2021-08-19] MEDS ORDERED: ONDANSETRON INJ 2 MG/ML 2 ML VIAL IV STA ×2 (13:37→18:39)
[2021-08-19] MEDS ORDERED: PANTOprazole 80 MG in DEXTROSE 5% 100 ML IV STA (13:37)
[2021-08-19] MEDS ORDERED: MULTI-VITAMIN INFUSION 10 ML, THIAMINE HCL 100 MG, FOLIC ACID 1 MG in SODIUM CHLORIDE 0... IV ONE (13:37)
--- NOTE | 2021-08-19 13:41 | Emergency Department Note ---
Impression & Plan Rectal bleeding, Black stool, Diffuse abdominal pain, Alcohol abuse, Acute duodenitis, Esophagitis ED Provider Note NAME: BRADY HERRING AGE: 56 SEX: M : 1965 ARRIVES VIA: Ambulance INFORMANT: [Patient][] ED PROVIDER(S): [Evan Wood MD] CHIEF COMPLAINT: Rectal bleeding HISTORY OF PRESENT ILLNESS: The patient is a 56-year-old male who has had several weeks of rectal bleeding, primarily when he has a bowel movement. He has had bloody stool but he also has had black stool. He has some mild diffuse abdominal pain. He has been vomiting at times but there has been no blood in the vomit. The patient is an alcoholic and has been drinking heavily lately. He stopped taking his regular medications several days ago. The patient states that the bleeding seems to be getting worse. He notices bright red blood when he has a bowel movement. 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 There has been no cough or congestion. No real shortness of breath. The patient admits that he does feel intoxicated currently. The patient's is at the bedside. The patient had a colonoscopy 5 years ago in [place]. Nothing was found of note. REVIEW OF SYSTEMS: See HPI for pertinent positives and negatives. A total of ten systems were reviewed and were otherwise negative. PMHx/PSHx: See Below SOCIAL HISTORY: See Below. PHYSICAL EXAM: GENERAL: Patient is in no acute distress. HEENT: No acute trauma, normocephalic atraumatic, mucous membranes moist, no nasal congestion, no scleral icterus. NECK: No stridor, no adenopathy, no meningismus, trachea is midline. LUNGS: Clear to auscultation bilaterally, no wheeze, no rhonchi, breath sounds equal. HEART: Without murmurs gallops or rubs, regular rate and rhythm. ABDOMEN: Soft, mildly diffusely tender, bowel sounds positive, no hernias, no peritonitis. EXTREMITIES: No cyanosis or edema, full range of motion of all the joints without pain or difficulty, no signs for acute trauma. NEUROLOGIC: Oriented x 3, no acute motor or sensory deficits, no focal weakness. SKIN: No rash, no jaundice, no diaphoresis. Rectal: He does have some rectal irritation and small hemorrhoids but there is no active bleeding. The stool was brown. Digital exam reveals no mass or bright red blood. DIFFERENTIAL DIAGNOSIS: Diverticulosis, AVM, coagulopathy, colitis, inflammatory bowel disease, malignancy, Mary-Khanna tear, esophagitis, peptic ulcer disease, variceal bleed, gastritis, epistaxis, fissure, hemorrhoids, alcohol abuse/intoxication, as well as other pathologies. EMERGENCY DEPARTMENT COURSE/PROCEDURES: ECG: Indication was GI bleeding. The ECG shows a normal sinus rhythm. There is some baseline artifact. The rate is 81. There is no ST elevation, no PVCs but the QTc is 455. Continuous Cardiac Monitoring: An order was placed for continuous cardiac monitoring. The monitor shows a rate of 83 with normal sinus rhythm. MEDICAL DECISION MAKING: There is no leukocytosis.No concerning anemia. There is a normal platelet count. No coagulopathy. BUN is a bit high, creatinine is normal. Calcium somewhat low at 7.8. There are some subtle liver enzyme elevations likely consistent with his alcohol use. ECG shows a normal sinus rhythm, no ischemia. Cardiac enzyme testing x1 is not consistent with acute cardiac injury. Alcohol level was quite high at 368. Covid testing returned negative. Chest film did not show pneumonia or CHF, no free air. Abdominal and pelvis CT showed some esophagitis and duodenitis. Rectal exam here shows some irritation to the anal area. The stool was brown in color. The patient received IV saline, IV Phenergan, IV Protonix, IV Zofran. He received IV saline with multivitamins, thiamine and folate. He was given IV Pepcid. The patient presents with black stool, rectal bleeding, diffuse abdominal pain and has a history of alcohol abuse. He has esophagitis and duodenitis on CT imaging. Given his findings, given his Xarelto use, given his complaints, I do think a hospitalization is warranted. I am concerned his hemoglobin may drop. A GI consult is warranted, he may be best served with an endoscopy and/or colonoscopy. I spoke with the patient and case management. I talked to the on-call hospit alist. Past Med/Surg History Medical History Alcohol dependence Anxiety and depression Hyperlipidemia Hypertension Obstructive sleep apnea Surgical History H/O knee surgery ACL left, meniscus repair right History of back surgery discectomy History of nasal surgery broken nose Family History Other Family history non-contributory Social History Smoking Status: Former smoker Tobacco Type: Cigarettes Second Hand Exposure: No; Do You Dip or Chew Tobacco: No; Tobacco Cessation Education Requested by Patient: No Hx Alcohol Use: Yes Alcohol type: hard liquor Hx Substance Use: No Preferred Language: Uzbek Communication Ability: Effective 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 Beliefs That Will Affect Care: None marital status: Current Living Situation: Alone Current Living Situation Comment: lives in [facility], he travels for work to here Other Information That Helps Us Care for You: No Feels Safe at Home: Yes Safety Concerns: Feels Safe At This Time Assistive Devices: CPAP Allergies Allergies Allergy/AdvReac Type Severity Reaction Status Date / Time No Known Allergies Allergy Unverified 08/19/21 14:25 Home Meds Home Medications Medication Instructions Recorded Confirmed atorvastatin 40 mg tablet 40 mg PO QAM 01/08/21 08/19/21 lisinopril 10 mg tablet 10 mg PO QAM 01/08/21 08/19/21 sertraline 100 mg tablet 100 mg PO QAM 01/08/21 08/19/21 gabapentin 300 mg capsule 300 mg PO TID 08/19/21 08/19/21 rivaroxaban 20 mg tablet (Xarelto) 20 mg PO QPM 08/19/21 08/19/21 Results & Data (ED) Vital Signs Vital Signs - 24 hr 08/19/21 13:09 08/19/21 15:10 08/19/21 17:00 Temperature 37 C Temperature Source Oral Pulse Rate 83 81 Pulse Rate [Apical] 81 81 Respiratory Rate 20 20 20 Respiratory Effort / Characteristics Non-Labored Spontaneous Non-Labored Spontaneous Non-Labored Spontaneous Respiratory Depth Normal Normal Normal Respiratory Pattern Regular Regular Regular Blood Pressure 131/87 Blood Pressure [Right Arm] 113/61 126/64 Blood Pressure Mean 101 Blood Pressure Mean [Right Arm] 78 84 Blood Pressure Position Sitting Blood Pressure Position [Right Arm] Sitting Sitting Pulse Oximetry 96 96 88 L Oxygen Delivery Method Room Air Room Air Room Air Oxygen Flow Rate 3 Sepsis Recent Fever Within 48 Hours No Sepsis New/Unexplained Change in Mental Status No Sepsis Action Taken by Nursing No Action Required Oxygen Flow Rate - Titration 3 Pulse Oximetry Post Tiitration 98 Home Medications Current Medication List: was personally reviewed by me Laboratory Data Attestation: I reviewed the patient's lab results. Result diagrams: 08/20/21 05:25 08/20/21 05:25 Lab Results 08/19/21 08/19/21 08/19/21 Range/Units 13:22 13:22 13:22 WBC 9.31 (4.8-10.8) K/uL RBC 4.41 L (4.7-6.1) M/uL Hgb 15.0 (14.0-18.0) g/dL Hct 43.3 (42-52) % MCV 98.2 (80-100) fL MCH 34.0 (25-34) pg MCHC 34.6 (32-36) g/dL RDW Std Deviation 48.4 H (36.4-46.3) fL RDW Coeff of Oksana 13.6 (11.5-14.5) % Plt Count 160 (130-400) K/uL MPV 9.9 (7.4-10.4) fL Immature Gran % (Auto) 0.3 % Neut % (Auto) 74.4 % Lymph % (Auto) 19.1 % [place] % (Auto) 5.9 % Eos % (Auto) 0.1 % Baso % (Auto) 0.2 % Neut # (Auto) 6.92 H (1.4-6.5) K/uL Lymph # (Auto) 1.78 (1.2-3.4) K/uL [place] # (Auto) 0.55 (0.11-0.59) K/uL Eos # (Auto) 0.01 (0-0.5) K/uL Baso # (Auto) 0.02 (0-0.2) K/uL Immature Gran # (Auto) 0.03 H (0.00-0.02) K/uL PT 10.1 (9.0-12.0) Seconds INR 1.0 (0.9-1.1) APTT 26.6 (21.0-31.0) Seconds PTT Ratio 1.0 Sodium 138 (136-145) mmol/L Potassium 4.3 (3.5-5.1) mmol/L Chloride 105 (98-107) mmol/L Carbon Dioxide 21 (21-32) mmol/L Anion Gap 12 H (3-11) BUN 39 H (6-23) mg/dl Creatinine 1.40 (0.6-1.4) mg/dl Est Cr Clr Drug Dosing 104.7 ml/min Est GFR ( Amer) 64.6 ml/min Est GFR (Non-Af Amer) 55.8 ml/min BUN/Creatinine Ratio 27.9 H (10-20) Glucose 132 H (70-99(Fasting)) mg/dl Calcium 7.8 L (8.5-10.1) mg/dl Total Bilirubin 1.1 H (0.2-1.0) mg/dl AST 40 H (13-39) U/L ALT 22 (7-52) U/L Alkaline Phosphatase 83 (34-104) U/L Troponin I < 0.03 (0-0.04) ng/ml Total Protein 7.1 (6.0-8.3) gm/dl Albumin 3.9 (3.4-5.0) gm/dl Globulin 3.2 (2.5-4.0) gm/dl Albumin/Globulin Ratio 1.2 (0.9-2) Ethyl Alcohol mg/dL (<10.0) mg/dl SARS-CoV-2, RNA, NAAT (NEGATIVE) Blood Type Antibody Screen 08/19/21 08/19/21 08/19/21 Range/Units 13:47 13:48 14:40 WBC (4.8-10.8) K/uL RBC (4.7-6.1) M/uL Hgb (14.0-18.0) g/dL Hct (42-52) % MCV (80-100) fL MCH (25-34) pg MCHC (32-36) g/dL RDW Std Deviation (36.4-46.3) fL RDW Coeff of Oksana (11.5-14.5) % Plt Count (130-400) K/uL MPV (7.4-10.4) fL Immature Gran % (Auto) % Neut % (Auto) % Lymph % (Auto) % [place] % (Auto) % Eos % (Auto) % Baso % (Auto) % Neut # (Auto) (1.4-6.5) K/uL Lymph # (Auto) (1.2-3.4) K/uL [place] # (Auto) (0.11-0.59) K/uL Eos # (Auto) (0-0.5) K/uL Baso # (Auto) (0-0.2) K/uL Immature Gran # (Auto) (0.00-0.02) K/uL PT (9.0-12.0) Seconds INR (0.9-1.1) APTT (21.0-31.0) Seconds PTT Ratio Sodium (136-145) mmol/L Potassium (3.5-5.1) mmol/L Chloride (98-107) mmol/L Carbon Dioxide (21-32) mmol/L Anion Gap (3-11) BUN (6-23) mg/dl Creatinine (0.6-1.4) mg/dl Est Cr Clr Drug Dosing ml/min Est GFR ( Amer) ml/min Est GFR (Non-Af Amer) ml/min BUN/Creatinine Ratio (10-20) Glucose (70-99(Fasting)) mg/dl Calcium (8.5-10.1) mg/dl Total Bilirubin (0.2-1.0) mg/dl AST (13-39) U/L ALT (7-52) U/L Alkaline Phosphatase (34-104) U/L Troponin I (0-0.04) ng/ml Total Protein (6.0-8.3) gm/dl Albumin (3.4-5.0) gm/dl Globulin (2.5-4.0) gm/dl Albumin/Globulin Ratio (0.9-2) Ethyl Alcohol mg/dL 368.3 H (<10.0) mg/dl SARS-CoV-2, RNA, NAAT NEGATIVE (NEGATIVE) Blood Type O Positive Antibody Screen NEGATIVE Administered Medications Atorvastatin Calcium (Atorvastatin 40 Mg Tab) 40 mg PO QAM COLLEEN Stop: 09/19/21 08:59 Last Admin: 08/20/21 08:21 Dose: 40 mg Documented by: [id number] Chlordiazepoxide HCl (Chlordiazepoxide Hcl 25 Mg Cap) 50 mg PO Q6H COLLEEN; Taper Stop: 08/22/21 19:59 Last Admin: 08/20/21 08:20 Dose: 50 mg Documented by: [id number] Admin: 08/20/21 01:55 Dose: 50 mg Documented by: [id number] Admin: 08/19/21 20:52 Dose: 50 mg Documented by: [id number] Gabapentin (Gabapentin 300 Mg Cap) 300 mg PO TID COLLEEN Stop: 09/18/21 20:59 Last Admin: 08/20/21 08:21 Dose: 300 mg Documented by: [id number] Admin: 08/19/21 20:49 Dose: 300 mg Documented by: [id number] Pantoprazole Sodium 40 mg/ (Syringe) 10 mls @ 5 mls/min IV BID COLLEEN Stop: 09/18/21 20:59 Last Admin: 08/20/21 08:20 Dose: 5 mls/min Documented by: [id number] Admin: 08/19/21 20:48 Dose: 5 mls/min Documented by: [id number] Thiamine HCl 500 mg/ Sodium (Chloride) 55 mls @ 220 mls/hr IV Q8H [facility]LEEN Stop: 09/18/21 19:59 Last Infusion: 08/20/21 04:46 Dose: 0 mls/hr Documented by: [id number] Admin: 08/20/21 04:18 Dose: 220 mls/hr Documented by: [id number] Infusion: 08/19/21 21:16 Dose: 0 mls/hr Documented by: [id number] Admin: 08/19/21 20:48 Dose: 220 mls/hr Documented by: [id number] Folic Acid 1 mg/ Syringe 10 mls @ 5 mls/min IV QAM COLLEEN Stop: 09/19/21 08:59 Last Admin: 08/20/21 08:20 Dose: 5 mls/min Documented by: [id number] Sodium Chloride (Nss 1000ml) 1,000 mls @ 100 mls/hr IV .Q10H [facility]LEEN Stop: 09/18/21 19:53 Last Admin: 08/20/21 08:20 Dose: 100 mls/hr Documented by: [id number] Infusion: 08/20/21 06:55 Dose: 100 mls/hr Documented by: [id number] Admin: 08/19/21 20:55 Dose: 100 mls/hr Documented by: [id number] Lorazepam (Ativan) 1 mg in 2 mls @ 2 mls/min IV UD PRN; Protocol PRN Reason: EtOH Withdrawl AWSS Score 6,7 Stop: 09/18/21 19:53 Last Admin: 08/19/21 22:00 Dose: 2 mls/min Documented by: [id number] Lisinopril (Lisinopril 10 Mg Tab) 10 mg PO [facility] Stop: 09/19/21 08:59 Last Admin: 08/20/21 08:21 Dose: 10 mg Documented by: [id number] Sertraline HCl (Sertraline Hcl 100 Mg Tablet) 100 mg PO [facility] Stop: 09/19/21 08:59 Last Admin: 08/20/21 08:21 Dose: 100 mg Documented by: [id number] Discontinued Medications Chlordiazepoxide HCl (Chlordiazepoxide Alcohol Withdrawl 50mg) 1 ea PO NOW STA; Protocol Stop: 08/19/21 17:50 Last Admin: 08/19/21 20:35 Dose: Not Given Documented by: [id number] Sodium Chloride (Nss) 500 mls @ 999 mls/hr IV .Q31M [facility] Stop: 08/19/21 14:15 Last Infusion: 08/19/21 15:04 Dose: 0 mls/hr Documented by: [id number] Admin: 08/19/21 14:19 Dose: 999 mls/hr Documented by: [id number] Famotidine (Pepcid 20mg Iv Push) 20 mg in 5 mls @ 2.5 mls/min IV NOW STA Stop: 08/19/21 13:38 Last Admin: 08/19/21 14:18 Dose: 2.5 mls/min Documented by: [id number] Pantoprazole Sodium 80 mg/ (Dextrose) 100 mls @ 400 mls/hr IV ONE STA Stop: 08/19/21 13:51 Last Infusion: 08/19/21 15:23 Dose: 0 mls/hr Documented by: [id number] Admin: 08/19/21 15:05 Dose: 400 mls/hr Documented by: [id number] Multivitamins 10 ml/ Thiamine HCl 100 mg/ Folic Acid 1 mg/Sodium Chloride 1 ,011.2 mls @ 1,011.2 mls/hr IV .Q1H ONE Stop: 08/19/21 14:36 Last Infusion: 08/19/21 15:23 Dose: 0 mls/hr Documented by: [id number] Admin: 08/19/21 14:18 Dose: 1,011.2 mls/hr Documented by: [id number] Promethazine HCl (Phenergan) 6.25 mg in 50.25 mls @ 201 mls/hr IV NOW STA Stop: 08/19/21 14:05 Last Infusion: 08/19/21 15:03 Dose: 0 mls/hr Documented by: [id number] Admin: 08/19/21 14:31 Dose: 201 mls/hr Documented by: [id number] Ioversol (Optiray 320 125ml) 120 ml IV ONCE ONE Stop: 08/19/21 14:59 Last Admin: 08/19/21 14:58 Dose: 120 ml Documented by: [id number] Ondansetron HCl (Ondansetron Inj 2 Mg/Ml 2 Ml Vial) 4 mg IV ONE STA Stop: 08/19/21 13:38 Last Admin: 08/19/21 14:17 Dose: 4 mg Documented by: [id number] Ondansetron HCl (Ondansetron Inj 2 Mg/Ml 2 Ml Vial) 4 mg IV NOW STA Stop: 08/19/21 18:40 Last Admin: 08/19/21 19:55 Dose: 4 mg Documented by: [id number] Imaging Data Radiologist's Impression: XR chest 1V portable CLINICAL HISTORY: vomiting. Evaluate lung bases. Former smoker. COMPARISON STUDY: 01/08/2021 TECHNIQUE: 1 view of the chest FINDINGS: Single frontal view of the chest demonstrates the cardiomediastinal silhouette to be within normal limits. There is a decreased inspiratory effort with elevation of the hemidiaphragms and crowding of the bronchovascular markings at the lung bases and centrally. The lungs are clear of alveolar opacities. There is no evidence for pleural effusion. There is no evidence for vascular congestion. There is no acute osseous pathology. IMPRESSION: There is a decreased inspiratory effort with otherwise no acute chest disease. ABDOMEN AND PELVIS CT WITH IV CONTRAST CT DOSE: 2193.98 mGy.cm HISTORY: Generalized abdominal pain. Bleeding. TECHNIQUE: Multiaxial CT images of the abdomen and pelvis were performed following the use of intravenous contrast. A dose lowering technique was utilized adhering to the principles of ALARA. COMPARISON STUDY: None. FINDINGS: Punctate calcification within the right lower lobe. The left lung base is clear. No pneumoperitoneum. No pneumatosis. No fractures within the visualized osseous structures. Mild thickening and adjacent fat stranding within the distal esophagus. There is also mild circumferential thickening within the second and third portions of the duodenum with mild adjacent fat stranding. This is consistent with a nonspecific duodenitis. The additional loops of large and small bowel show no wall thickening or obstruction. Normal appendix. No bladder wall thickening. The prostate gland is normal in size. No pelvic free fluid. Hepatic steatosis. The main portal vein is patent. The gallbladder, spleen, adrenal glands, pancreas, and right kidney enhances normally. No hydronephrosis. Mild bilateral perinephric edema. This is likely chronic. There is a 12 mm hypodense lesion within the upper pole the left kidney. This is difficult to characterize due to its small size and patient's body habitus but statistically represents a cyst. Normal caliber abdominal aorta. No retroperitoneal lymphadenopathy. IMPRESSION: 1. Mild thickening and adjacent fat stranding within the second and third portion of the duodenum. This is consistent with a nonspecific duodenitis. 2. There is also mild thickening and fat stranding at the distal esophagus consistent with a nonspecific esophagitis. Endoscopy recommended for further e valuation of these abnormalities and to exclude the possibility of underlying ulcerative disease or a lesion. 3. No evidence for bowel obstruction. 4. Normal appendix. 5. Hepatic steatosis. Discharge Plan Visit Data Chief Complaint: Rectal Bleed Stated Complaint: RECTAL BLEED, HEMATOCHEZIA ED Provider: Evan Wood Discharge Problem: Rectal bleeding, Black stool, Diffuse abdominal pain, Alcohol abuse, Acute duodenitis, Esophagitis Patient Disposition: Admitted As Inpatient Condition: Fair Discharge Instructions Interventions: ED Discharge Assessment Last Done: 08/19/21 19:30
[2021-08-19] MEDS ORDERED: SODIUM CHLORIDE 0.9% 500 ML IV SCH (13:45)
[2021-08-19] MEDS ORDERED: PROMETHAZINE 6.25 MG/50.25 ML BAG IV STA (13:51)
[2021-08-19 13:56] LABS: Basophils # (auto) 0.02 K/uL (0-0.2); Basophils % (auto) 0.2 %; Eosinophils # (auto) 0.01 K/uL (0-0.5); Eosinophils % (auto) 0.1 %; Hematocrit (blood only) 43.3 % (42-52); Immature Granulocytes # (auto) 0.03 K/uL (0.00-0.02); Immature Granulocytes % (auto) 0.3 %; Lymphocytes # (auto) 1.78 K/uL (1.2-3.4); Lymphocytes % (auto) 19.1 %; Mean Corpuscular Hgb Conc 34.6 g/dL (32-36); Mean Corpuscular Volume 98.2 fL (80-100); Mean Platelet Volume 9.9 fL (7.4-10.4); Monocytes # (auto) 0.55 K/uL (0.11-0.59); Monocytes % (auto) 5.9 %; Neutrophils # (auto) 6.92 K/uL (1.4-6.5); Neutrophils % (auto) 74.4 %; Platelet Count 160 K/uL (130-400); RDW Coefficient of Variation 13.6 % (11.5-14.5); RDW Standard Deviation 48.4 fL (36.4-46.3); Red Blood Count 4.41 M/uL (4.7-6.1); White Blood Count 9.31 K/uL (4.8-10.8)
[2021-08-19 14:05] LABS: Partial Thromboplastin Time 26.6 Seconds (21.0-31.0); Prothrombin Time 10.1 Seconds (9.0-12.0)
[2021-08-19 14:10] LABS: Alanine Aminotransferase 22 U/L (7-52); Albumin Globulin Ratio 1.2 (0.9-2); Albumin Level 3.9 gm/dl (3.4-5.0); Alkaline Phosphatase 83 U/L (34-104); Anion Gap 12 (3-11); Aspartate Aminotransferase 40 U/L (13-39); BUN Creatinine Ratio 27.9 (10-20); Bilirubin,Total 1.1 mg/dl (0.2-1.0); Blood Urea Nitrogen 39 mg/dl (6-23); Calcium 7.8 mg/dl (8.5-10.1); Carbon Dioxide 21 mmol/L (21-32); Chloride 105 mmol/L (98-107); Creatinine Clr Calc Pharmacy 104.7 ml/min; Est GFR (African American) 64.6 ml/min; Est GFR (Non-African American) 55.8 ml/min; Globulin 3.2 gm/dl (2.5-4.0); Glucose 132 mg/dl (70-99(Fasting)); Potassium 4.3 mmol/L (3.5-5.1); Sodium 138 mmol/L (136-145); Total Protein 7.1 gm/dl (6.0-8.3); Troponin I < 0.03 ng/ml (0-0.04)
--- NOTE | 2021-08-19 14:11 | XRay Report ---
XR chest 1V portable CLINICAL HISTORY: vomiting. Evaluate lung bases. Former smoker. COMPARISON STUDY: 01/08/2021 TECHNIQUE: 1 view of the chest FINDINGS: Single frontal view of the chest demonstrates the cardiomediastinal silhouette to be within normal li mits. There is a decreased inspiratory effort with elevation of the hemidiaphragms and crowding of th e bronchovascular markings at the lung bases and centrally. The lungs are clear of alveolar opacities . There is no evidence for pleural effusion. There is no evidence for vascular congestion. There is n o acute osseous pathology. IMPRESSION: There is a decreased inspiratory effort with otherwise no acute chest disease. ACT 112: Negative or not required by law. Electronically signed by: Masood Landrum M.D. 08/19/2021 2:09 PM
[2021-08-19] MEDS ORDERED: OPTIRAY 320 125ml IV ONE (14:58)
--- NOTE | 2021-08-19 15:16 | CT Scan Report ---
ABDOMEN AND PELVIS CT WITH IV CONTRAST CT DOSE: 2193.98 mGy.cm HISTORY: Generalized abdominal pain. Bleeding. TECHNIQUE: Multiaxial CT images of the abdomen and pelvis were performed following the use of intrave nous contrast. A dose lowering technique was utilized adhering to the principles of ALARA. COMPARISON STUDY: None. FINDINGS: Punctate calcification within the right lower lobe. The left lung base is clear. No pneumop eritoneum. No pneumatosis. No fractures within the visualized osseous structures. Mild thickening and adjacent fat stranding within the distal esophagus. There is also mild circumferential thickening wi thin the second and third portions of the duodenum with mild adjacent fat stranding. This is consiste nt with a nonspecific duodenitis. The additional loops of large and small bowel show no wall thickeni ng or obstruction. Normal appendix. No bladder wall thickening. The prostate gland is normal in size. No pelvic free fluid. Hepatic steatosis. The main portal vein is patent. The gallbladder, spleen, ad renal glands, pancreas, and right kidney enhances normally. No hydronephrosis. Mild bilateral perinep hric edema. This is likely chronic. There is a 12 mm hypodense lesion within the upper pole the left kidney. This is difficult to characterize due to its small size and patient's body habitus but statis tically represents a cyst. Normal caliber abdominal aorta. No retroperitoneal lymphadenopathy. IMPRESSION: 1. Mild thickening and adjacent fat stranding within the second and third portion of the duodenum. Th is is consistent with a nonspecific duodenitis. 2. There is also mild thickening and fat stranding at the distal esophagus consistent with a nonspeci fic esophagitis. Endoscopy recommended for further evaluation of these abnormalities and to exclude t he possibility of underlying ulcerative disease or a lesion. 3. No evidence for bowel obstruction. 4. Normal appendix. 5. Hepatic steatosis. ACT 112: Positive. There are findings on this exam that require communication between the performing entity and the patient following Patient Test Result Information Act ([place] Act 112) guidelines. Electronically signed by: Clement Kiran M.D. 08/19/2021 3:15 PM
--- NOTE | 2021-08-19 17:30 | History & Physical Report ---
Date of Service August 19, 2021 Assessment & Plan (1) GIB (gastrointestinal bleeding): Plan: Admit to PCU bed Hemoglobin is currently 15, although he may be hemoconcentrated as he admits that he is not been eating or drinking properly Monitor H&H every 8 hours Protonix 40 mg IV every 12 hours We will keep n.p.o. except for ice chips, consider advancing to clear liquids Will discontinue Xarelto for now Will ask GI to evaluate for further recommendations including possible endoscopic evaluation (2) Chronic alcoholism: Plan: Patient is admitted that he has had withdrawal in the past Will start CIWA scale along with prophylactic p.o. Librium Continue monitoring for worsening withdrawal, if patient becomes very agitated there may be indication to transfer to ICU on Precedex drip Consider psychiatry evaluation IV repletion of folate and thiamine, can change to p.o. once GI issues resolved Case management to discuss rehab upon discharge, patient likely for facility in [place] near his home (3) Obstructive sleep apnea: Plan: Patient is on CPAP 14 nightly, will order (4) Hyperlipidemia: Plan: Continue atorvastatin (5) Hypertension: Plan: Continue lisinopril History of Present Illness Chief Complaint: rectal bleed Primary Care Provider: NO PCP This is a 56-year-old male past medical history of chronic alcoholism, SHELBIE, PE, morbid obesity that presents today with rectal bleeding. Patient is a somewhat limited historian, is at bedside who is able to help somewhat. Patient and live in [place], but he travels this area for work. He states in his own apartment. Patient states that he has been having some rectal blee ding over the past few weeks. This is typically bright red blood with bowel movements, associated with pain when he moves his bowels. He also notes some pain in the very left lower quadrant. He made an appointment with a GI specialist near his home but will not be seen until September. More recently, he has noted that he has had a few of black bowel movements, does not necessarily associate this is "tarry "but does say that this is not his normal symptoms. He has had some nausea but no vomiting, bloody or otherwise. Also of note, the patient is a chronic alcoholic. He has apparently been in outpatient rehab in the past but the states that he did drink during this period of time as well as after. He has had alcohol withdrawal in the past and has a LASHAWN over 300 on presentation here. He quantifies his alcohol use is 3 pints of whiskey a day. tells me that she came to see the patient found in his apartment was covered in feces, she found several large bottles of whiskey that were empty. The patient seem to be a little confused which prompted her to bring him to the hospital. Patient does state that he has had nothing to eat or drink other than alcohol in the past several days. Patient self is mostly alert and awake. He is somewhat evasive with certain answers and is difficult to tell if he is a reliable historian. Patient is now being admitted for alcohol withdrawal as well as GI bleeding is noted. Of note, he does have a previous PE and is on Xarelto for this. Allergies Allergy/AdvReac Type Severity Reaction Status Date / Time No Known Allergies Allergy Unverified 08/19/21 14:25 Home Medications Medication Instructions Recorded Confirmed Type atorvastatin 40 mg tablet 40 mg PO QAM 01/08/21 08/19/21 History lisinopril 10 mg tablet 10 mg PO QAM 01/08/21 08/19/21 History sertraline 100 mg tablet 100 mg PO QAM 01/08/21 08/19/21 History gabapentin 300 mg capsule 300 mg PO TID 08/19/21 08/19/21 History rivaroxaban 20 mg tablet (Xarelto) 20 mg PO QPM 08/19/21 08/19/21 History Past Med/Surg History Medical History Alcohol dependence Anxiety and depression Hyperlipidemia Hypertension Obstructive sleep apnea Surgical History H/O knee surgery ACL left, meniscus repair right History of back surgery discectomy History of nasal surgery broken nose Family History Other Family history non-contributory Social History Smoking Status: Former smoker Tobacco Type: Cigarettes Hx Alcohol Use: Yes Alcohol type: hard liquor Hx Substance Use: No Communication Ability: Effective Beliefs That Will Affect Care: None marital status: Current Living Situation: Family Feels Safe at Home: Yes Assistive Devices: CPAP Review of Systems Constitutional: no fever, no chills, no weakness, no weight loss and no weight gain Eyes: as per Subjective / HPI Respiratory: no cough, no chest congestion, no dyspnea and no dyspnea on exertion Cardiovascular: no chest pain, no orthopnea, no palpitations, no lightheadedness and no edema Gastrointestinal: + abdominal pain, + nausea, + change in bowel habits, + change in stools, + diarrhea/loose stools and + blood in stools; no vomiting, no coffee ground emesis, no hematemesis and no constipation Musculoskeletal: no back pain, no neck pain, no joint pain, no stiffness and no myalgia Integumentary: no rash Neurologic: no gait abnormality, no unsteadiness, no falls and no generalized weakness Physical Exam Constitutional: cooperative; no acute distress Eyes: anicteric Neck: trachea midline, no thyromegaly Respiratory: normal respiratory effort Auscultation: lungs clear to auscultation bilaterally; no crackles, no rales, no rhonchi and no wheezes Cardiovascular: Rate/Rhythm: regular rate and regular rhythm Heart Sounds: normal S1 and normal S2 Gastrointestinal (Abdomen): Inspection/Auscultation: abdomen normal to inspection Percussion/Palpation: abdomen soft; abdomen nontender, no guarding, abdomen not rigid and no hepatosplenomegaly morbidly obese Skin: no rashes, warm and dry non jaundiced Results & Data Results & Data ([facility]) Vital Signs (Past 12 Hours) Vital Signs Temp Pulse Pulse Resp BP BP Pulse Ox 08/19/21 15:10 81 81 20 113/61 96 08/19/21 13:09 37 C 83 20 131/87 96 Laboratory Results Laboratory Results WBC 9.31 K/uL (4.8-10.8) 08/19/21 13:22 RBC 4.41 M/uL (4.7-6.1) L 08/19/21 13:22 Hgb 15.0 g/dL (14.0-18.0) 08/19/21 13:22 Hct 43.3 % (42-52) 08/19/21 13:22 MCV 98.2 fL (80-100) 08/19/21 13:22 MCH 34.0 pg (25-34) 08/19/21 13:22 MCHC 34.6 g/dL (32-36) 08/19/21 13:22 RDW Std Deviation 48.4 fL (36.4-46.3) H 08/19/21 13:22 RDW Coeff of Oksana 13.6 % (11.5-14.5) 08/19/21 13:22 Plt Count 160 K/uL (130-400) 08/19/21 13:22 MPV 9.9 fL (7.4-10.4) 08/19/21 13:22 Immature Gran % (Auto) 0.3 % 08/19/21 13:22 Neut % (Auto) 74.4 % 08/19/21 13:22 Lymph % (Auto) 19.1 % 08/19/21 13:22 [place] % (Auto) 5.9 % 08/19/21 13:22 Eos % (Auto) 0.1 % 08/19/21 13:22 Baso % (Auto) 0.2 % 08/19/21 13:22 Neut # (Auto) 6.92 K/uL (1.4-6.5) H 08/19/21 13:22 Lymph # (Auto) 1.78 K/uL (1.2-3.4) 08/19/21 13:22 [place] # (Auto) 0.55 K/uL (0.11-0.59) 08/19/21 13:22 Eos # (Auto) 0.01 K/uL (0-0.5) 08/19/21 13:22 Baso # (Auto) 0.02 K/uL (0-0.2) 08/19/21 13:22 Immature Gran # (Auto) 0.03 K/uL (0.00-0.02) H 08/19/21 13:22 PT 10.1 Seconds (9.0-12.0) 08/19/21 13:22 INR 1.0 (0.9-1.1) 08/19/21 13:22 APTT 26.6 Seconds (21.0-31.0) 08/19/21 13:22 PTT Ratio 1.0 08/19/21 13:22 Sodium 138 mmol/L (136-145) 08/19/21 13:22 Potassium 4.3 mmol/L (3.5-5.1) 08/19/21 13:22 Chloride 105 mmol/L (98-107) 08/19/21 13:22 Carbon Dioxide 21 mmol/L (21-32) 08/19/21 13:22 Anion Gap 12 (3-11) H 08/19/21 13:22 BUN 39 mg/dl (6-23) H 08/19/21 13:22 Creatinine 1.40 mg/dl (0.6-1.4) 08/19/21 13:22 Est Cr Clr Drug Dosing 104.7 ml/min 08/19/21 13:22 Est GFR ( Amer) 64.6 ml/min 08/19/21 13:22 Est GFR (Non-Af Amer) 55.8 ml/min 08/19/21 13:22 BUN/Creatinine Ratio 27.9 (10-20) H 08/19/21 13:22 Glucose 132 mg/dl (70-99(Fasting)) H 08/19/21 13:22 Calcium 7.8 mg/dl (8.5-10.1) L 08/19/21 13:22 Total Bilirubin 1.1 mg/dl (0.2-1.0) H 08/19/21 13:22 AST 40 U/L (13-39) H 08/19/21 13:22 ALT 22 U/L (7-52) 08/19/21 13:22 Alkaline Phosphatase 83 U/L (34-104) 08/19/21 13:22 Troponin I < 0.03 ng/ml (0-0.04) 08/19/21 13:22 Total Protein 7.1 gm/dl (6.0-8.3) 08/19/21 13:22 Albumin 3.9 gm/dl (3.4-5.0) 08/19/21 13:22 Globulin 3.2 gm/dl (2.5-4.0) 08/19/21 13:22 Albumin/Globulin Ratio 1.2 (0.9-2) 08/19/21 13:22 Ethyl Alcohol mg/dL 368.3 mg/dl (<10.0) H 08/19/21 13:48 SARS-CoV-2, RNA, NAAT NEGATIVE (NEGATIVE) 08/19/21 14:40 Blood Type O Positive 08/19/21 13:47 Antibody Screen NEGATIVE 08/19/21 13:47 Impressions Abdomen/Pelvis CT 08/19/21 13:[address] WITH IV CONTRAST CT DOSE: 2193.98 mGy.cm HISTORY: Generalized abdominal pain. Bleeding. TECHNIQUE: Multiaxial CT images of the abdomen and pelvis were performed following the use of intravenous contrast. A dose lowering technique was utilized adhering to the principles of ALARA. COMPARISON STUDY: None. FINDINGS: Punctate calcification within the right lower lobe. The left lung base is clear. No pneumoperitoneum. No pneumatosis. No fractures within the visualized osseous structures. Mild thickening and adjacent fat stranding within the distal esophagus. There is also mild circumferential thickening within the second and third portions of the duodenum with mild adjacent fat stranding. This is consistent with a nonspecific duodenitis. The additional loops of large and small bowel show no wall thickening or obstruction. Normal appendix. No bladder wall thickening. The prostate gland is normal in size. No pelvic free fluid. Hepatic steatosis. The main portal vein is patent. The gallbladder, spleen, adrenal glands, pancreas, and right kidney enhances normally. No hydronephrosis. Mild bilateral perinephric edema. This is likely chronic. There is a 12 mm hypodense lesion within the upper pole the left kidney. This is difficult to characterize due to its small size and patient's body habitus but statistically represents a cyst. Normal caliber abdominal aorta. No retroperitoneal lymphadenopathy. IMPRESSION: 1. Mild thickening and adjacent fat stranding within the second and third portion of the duodenum. This is consistent with a nonspecific duodenitis. 2. There is also mild thickening and fat stranding at the distal esophagus consistent with a nonspecific esophagitis. Endoscopy recommended for further evaluation of these abnormalities and to exclude the possibility of underlying ulcerative disease or a lesion. 3. No evidence for bowel obstruction. 4. Normal appendix. 5. Hepatic steatosis. ACT 112: Positive. There are findings on this exam that require communication between the performing entity and the patient following Patient Test Result Information Act ([place] Act 112) guidelines. Electronically signed by: Clement Kiran M.D. 08/19/2021 3:15 PM Chest X-Ray 08/19/21 13:37 XR chest 1V portable CLINICAL HISTORY: vomiting. Evaluate lung bases. Former smoker. COMPARISON STUDY: 01/08/2021 TECHNIQUE: 1 view of the chest FINDINGS: Single frontal view of the chest demonstrates the cardiomediastinal silhouette to be within normal limits. There is a decreased inspiratory effort with elevation of the hemidiaphragms and crowding of the bronchovascular markings at the lung bases and centrally. The lungs are clear of alveolar opacities. There is no evidence for pleural effusion. There is no evidence for vascular congestion. There is no acute osseous pathology. IMPRESSION: There is a decreased inspiratory effort with otherwise no acute chest disease. ACT 112: Negative or not required by law. Electronically signed by: Masood Landrum M.D. 08/19/2021 2:09 PM PG Care Time/CCT Total # of Minutes Spent Total Time Spent with Patient: Total time spent is greater than 50% in coordination of care (as documented) at patient's floor/unit and/or counseling patient: Coding Level of Care Code 48330 Initial Inpt Care Lvl 3 Diagnoses Obstructive sleep apnea G47.33 Hyperlipidemia E78.5 Hyperlipidemia type: unspecified Hypertension I10 Hypertension type: essential hypertension Chronic alcoholism F10.20 GIB (gastrointestinal bleeding) K92.2 (1) Hyperlipidemia Hyperlipidemia type: unspecified Qualified Code(s): E78.5 - Hyperlipidemia, unspecified (2) Hypertension Hypertension type: essential hypertension Qualified Code(s): I10 - Essential (primary) hypertension
[2021-08-19] MEDS ORDERED: chlordiazePOXIDE ALCOHOL WITHDRAWL 50MG PO STA (17:49)
[2021-08-19] MEDS ORDERED: LORazepam 3 MG/6 ML VIAL IV PRN (19:54)
[2021-08-19] MEDS ORDERED: ONDANSETRON INJ 2 MG/ML 2 ML VIAL IV PRN (19:54)
[2021-08-19] MEDS ORDERED: LORazepam 2 MG/4 ML VIAL IV PRN (19:54)
[2021-08-19] MEDS ORDERED: ATIVAN IV ALCOHOL WITHDRAWL IV PRN (19:54)
[2021-08-19] MEDS: PANTOprazole 40 MG in SYRINGE 0 ML IV SCH (20:48)
[2021-08-19] MEDS: THIAMINE HCL 500 MG in SODIUM CHLORIDE 0.9% 50 ML IV SCH (20:48)
[2021-08-19] MEDS: GABAPENTIN 300 MG CAP PO SCH (20:49)
[2021-08-19 20:51] LABS: Hematocrit (blood only) 39.1 % (42-52); Hemoglobin 13.3 g/dL (14.0-18.0)
[2021-08-19] MEDS: chlordiazePOXIDE HCl 25 MG CAP PO SCH (20:52)
[2021-08-19] MEDS: SODIUM CHLORIDE 0.9% 1000ML 1,000 ML IV SCH (20:55)
[2021-08-19] MEDS: LORazepam 1 MG/2 ML VIAL IV PRN (22:00)
[2021-08-20] MEDS: chlordiazePOXIDE HCl 25 MG CAP PO SCH ×4 (01:55→20:19)
[2021-08-20] MEDS: THIAMINE HCL 500 MG in SODIUM CHLORIDE 0.9% 50 ML IV SCH ×2 (04:18→13:02)
[2021-08-20 05:42] LABS: Basophils # (auto) 0.01 K/uL (0-0.2); Basophils % (auto) 0.2 %; Eosinophils # (auto) 0.06 K/uL (0-0.5); Hematocrit (blood only) 37.3 % (42-52); Hemoglobin 12.5 g/dL (14.0-18.0); Immature Granulocytes # (auto) 0.02 K/uL (0.00-0.02); Immature Granulocytes % (auto) 0.3 %; Lymphocytes # (auto) 1.09 K/uL (1.2-3.4); Lymphocytes % (auto) 17.6 %; Mean Corpuscular Hemoglobin 33.3 pg (25-34); Mean Corpuscular Hgb Conc 33.5 g/dL (32-36); Mean Corpuscular Volume 99.5 fL (80-100); Mean Platelet Volume 9.5 fL (7.4-10.4); Monocytes % (auto) 6.5 %; Neutrophils % (auto) 74.4 %; Platelet Count 114 K/uL (130-400); RDW Coefficient of Variation 13.8 % (11.5-14.5); RDW Standard Deviation 49.5 fL (36.4-46.3); Red Blood Count 3.75 M/uL (4.7-6.1); White Blood Count 6.18 K/uL (4.8-10.8)
[2021-08-20 06:17] LABS: Albumin Globulin Ratio 1.3 (0.9-2); Albumin Level 3.4 gm/dl (3.4-5.0); BUN Creatinine Ratio 24.8 (10-20); Bilirubin,Total 1.3 mg/dl (0.2-1.0); Calcium 7.6 mg/dl (8.5-10.1); Chol HDL Ratio 1.8 (0-5); Creatinine Clr Calc Pharmacy 127.9 ml/min; Est GFR (African American) 87.5 ml/min; Est GFR (Non-African American) 75.5 ml/min; Globulin 2.6 gm/dl (2.5-4.0); Magnesium 1.5 mg/dl (1.7-2.4); Potassium 4.4 mmol/L (3.5-5.1)
[2021-08-20] MEDS: SODIUM CHLORIDE 0.9% 1000ML 1,000 ML IV SCH ×2 (08:20→18:18)
[2021-08-20] MEDS: PANTOprazole 40 MG in SYRINGE 0 ML IV SCH ×2 (08:20→20:20)
[2021-08-20] MEDS: FOLIC ACID 1 MG in SYRINGE 9.8 ML IV SCH (08:20)
[2021-08-20] MEDS: GABAPENTIN 300 MG CAP PO SCH ×3 (08:21→20:21)
[2021-08-20] MEDS: ATORVASTATIN 40 MG TAB PO SCH (08:21)
[2021-08-20] MEDS: SERTRALINE HCL 100 MG TABLET PO SCH (08:21)
[2021-08-20] MEDS ORDERED: lisinopril 10 MG TAB PO SCH (09:00)
--- NOTE | 2021-08-20 11:03 | Gastrointestinal Consultation ---
Date of Consultation August 20, 2021 Assessment & Plan (1) GIB (gastrointestinal bleeding): (2) Abnormal CT scan, esophagus: -Keep NPO after midnight with exception of bowel prep. If stable from an alcohol withdrawal standpoint, would keep NPO after midnight and plan to proceed with EGD & colonoscopy on 08/21/21. -Protonix 40 mg IV BID. Supervising Physician Co-Signing Physician Notes I personally evaluated the patient and agree with the findings as documented by Enid Mitchell, PAC Exam: abd: soft, nt, nd History of Present Illness Reason for Consultation: GI bleeding Attending Physician: Mg Henao, DO History of Present Illness Patient is a 56 yo male with a PMH of alcoholism, SHELBIE, PE on Xarelto, & morbid obesity. He presented to the ED with rectal bleeding. Reportedly, he has experienced melena and hematochezia for several weeks. He has an appointment scheduled with a beam worker in [place] for this issue in September. However, in the meantime, his presented to [place] from [place] and found him intoxicated, covered in feces, and with several large bottles of whiskey empty on the floor. Due to him being confused, she brought him to the hospital. He has gone to alcohol rehab in the past, but has since relapsed. LASHAWN was >300 upon presentation to the ED. He had a CT scan of the abdomen/pelvis that indicated duodenitis and thickening of the distal esophagus. H/H 12.5/37.3. He is chronically anticoagulated. He is admitted to the ICU on [facility] protocol for alcohol withdrawal. He is awake, alert & oriented appropriately at the time of my visit this AM. He tells me he had a colonoscopy 5 years ago that was unremarkable. He has a history of GERD, but notes that recently it has not been a problem. No family history pertinent to his current clinical picture. T bili is 1.3. Mg 1.5. AST & ALT unremarkable. Allergies Allergy/AdvReac Type Severity Reaction Status Date / Time No Known Allergies Allergy Unverified 08/19/21 14:25 Home Medications Medication Instructions Recorded Confirmed Type atorvastatin 40 mg tablet 40 mg PO QAM 01/08/21 08/19/21 History lisinopril 10 mg tablet 10 mg PO QAM 01/08/21 08/19/21 History sertraline 100 mg tablet 100 mg PO QAM 01/08/21 08/19/21 History gabapentin 300 mg capsule 300 mg PO TID 08/19/21 08/19/21 History rivaroxaban 20 mg tablet (Xarelto) 20 mg PO QPM 08/19/21 08/19/21 History Patient History Medical History Alcohol dependence Anxiety and depression Hyperlipidemia Hypertension Obstructive sleep apnea Surgical History H/O knee surgery ACL left, meniscus repair right History of back surgery discectomy History of nasal surgery broken nose Family History Other Family history non-contributory Social History Smoking Status: Former smoker Tobacco Type: Cigarettes Second Hand Exposure: No; Do You Dip or Chew Tobacco: No; Tobacco Cessation Education Requested by Patient: No Hx Alcohol Use: Yes Alcohol type: hard liquor Hx Substance Use: No Preferred Language: Bel[place]an Communication Ability: Effective 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 Beliefs That Will Affect Care: None marital status: Current Living Situation: Alone Current Living Situation Comment: lives in [facility], he travels for work to here Other Information That Helps Us Care for You: No Feels Safe at Home: Yes Safety Concerns: Feels Safe At This Time Assistive Devices: CPAP Review of Systems Constitutional: no fever and no chills Respiratory: no cough and no dyspnea Cardiovascular: no chest pain Gastrointestinal: + bloating, + nausea and + blood in stools; no abdominal pain, no heartburn, no vomiting, no change in bowel habits, no change in stools, no constipation, no diarrhea/loose stools and no fecal incontinence Musculoskeletal: no problem reported Integumentary: no problem reported Psychiatric: no problem reported Hematologic / Lymphatic: no problem reported Physical Exam Constitutional: WD/WN, vitals as above Respiratory: normal respiratory effort, lungs clear to auscultation Cardiovascular: Rate/Rhythm: + tachycardic Gastrointestinal (Abdomen): Inspection/Auscultation: abdomen normal to inspection Musculoskeletal: Head/Neck/Chest: normocephalic Psychiatric: Orientation: alert and oriented x 3 Results & Data ([facility]) Vital Signs (Past 12 Hours) Vital Signs Temp Pulse Pulse Resp BP BP Pulse Ox 08/20/21 08:00 36.9 C 103 H 18 141/60 H 94 08/20/21 03:58 36.9 C 83 23 101/58 L 93 08/20/21 03:44 86 17 08/20/21 00:06 36.9 C 61 18 117/51 L 93 08/20/21 00:00 88 PG Care Time/CCT Total # of Minutes Spent Total Time Spent with Patient: Total time spent is greater than 50% in coordination of care (as documented) at patient's floor/unit and/or counseling patient: Coding Level of Care Code 00793 Inpt Consult Level 4 Diagnoses GIB (gastrointestinal bleeding) K92.[address] scan, esophagus R93.3
[2021-08-20] MEDS ORDERED: bisacodyL 5 MG TABEC PO ONE (11:08)
--- NOTE | 2021-08-20 11:12 | Electrocardiogram Report ---
Test Reason : Blood Pressure : / mmHG Vent. Rate : 081 BPM Atrial Rate : 081 BPM P-R Int : 148 ms QRS Dur : 092 ms QT Int : 392 ms P-R-T Axes : 049 005 044 degrees QTc Int : 455 ms Sinus rhythm with Premature atrial complexes with Aberrant conduction Low voltage QRS Borderline ECG When compared with ECG of 17-NOV-2020 19:12, Aberrant conduction is now Present Confirmed by Dawson Muniz ([id number]) on 08/20/2021 11:12:05 AM Referred By: Confirmed By:Dawson Muniz
[2021-08-20] MEDS: MAGNESIUM OXIDE 400 MG TAB PO SCH ×2 (13:02→20:20)
--- NOTE | 2021-08-20 15:34 | Hospitalist Progress Note ---
Date of Service August 20, 2021 Assessment & Plan (1) GIB (gastrointestinal bleeding): Plan: Reported blood per rectum prior to admission No bowel movement 2/2 Hemoglobin 15 on admission with suspected hemoconcentration, down trended to 13.3/12.5 PCU monitoring H&H every 12 Protonix 40 mg IV every 12 hours Patient n.p.o. Xarelto held Seen by GI. We will continue n.p.o. with bowel prep. Anticipate EGD and colonoscopy 08/21/2021. Appreciate recommendations. Discontinue Xarelto for now. (2) Chronic alcoholism: Plan: Frequent alcohol abuse and multiple withdrawal episodes in the past - s/p banana bag Last discharge 01/10/2021 for alcohol withdrawal. Did well with Librium and gabapentin taper, required minimal lorazepam breakthrough doses. Continue Librium protocol On gabapentin 300 mg 3 times daily Continue AWSS scoring N.p.o., continue IV folate, IV thiamine. High-dose thiamine 500 every 8 hours x1 day, then decrease to 200, then 100 daily Considering rehab on discharge? Facility in [place] near his home (3) Obstructive sleep apnea: Plan: Continue CPAP nightly, 14 mm (4) Hyperlipidemia: Plan: Continue home statin (5) Hypertension: Plan: Lisinopril held periprocedurally, resume after [place] (6) History of pulmonary embolism: Plan: Xarelto temporarily held as noted above Oxygenation stable on room air, tachycardia in the setting of possible alcohol withdrawal Plan: CODE STATUS: Full code Dispo: PCU for withdrawal, complete evaluation DVT prophylaxis: Pharmacal prophylaxis contraindicated in the setting of bleed, SCDsSCD Admission and Anticipated Discharge Date Admission Date: August 19, 2021 Subjective Seen the bedside today. Continues to feel shaky. No bowel movements yet today. Frequently has a feeling of having to go, and then does not actually go to the bathroom. Last bowel movement was just before admission and with blood. Patient reports he feels like he is going through withdrawal, feels shaky and tired. Reports he has gone through withdrawal when stopping alcohol each time, last episode was last month. Denies nausea/vomiting today. Denies presyncope, chest pain, chest pressure. Denies abdominal pain. No hallucinations, answers questions appropriately Review of Systems Review of Systems: All systems reviewed & are unremarkable except as noted in Subjective Physical Exam Physical Exam: General: A&Ox3. NAD. Cooperative. Minimal tremor at rest, patient endorses increased tremor while in room and with upper arm movement/extension. HEENT: Atraumatic, normocephalic. Issue daily and hearing grossly intact, not responding to internal stimuli Pulm: CTAB A&P. -wheezes, -rales, -rhonchi. Symmetrical chest rise. No increase in work of breathing. No respiratory distress. Cardiac: Regular, slight tachycardia, -mrg. Radial pulses intact and symmetrical. Abdominal: Obese, nontender, no guarding, nonrigid. Extremities: Soft touch intact in hands and feet. Results & Data Results & Data ([facility]) Vital Signs (Past 12 Hours) Vital Signs Temp Pulse Pulse Resp BP BP Pulse Ox 08/20/21 13:08 36.6 C 93 H 22 139/75 96 08/20/21 08:00 36.9 C 103 H 18 141/60 H 94 08/20/21 03:58 36.9 C 83 23 101/58 L 93 08/20/21 03:44 86 17 PG Care Time/CCT Total # of Minutes Spent Total Time Spent with Patient: Total time spent is greater than 50% in coordination of care (as documented) at patient's floor/unit and/or counseling patient: Coding Level of Care Code 35563 Subseq Hosp Care Lvl 3 Diagnoses GIB (gastrointestinal bleeding) K92.2 Chronic alcoholism F10.20 Obstructive sleep apnea G47.33 Hyperlipidemia E78.5 Hyperlipidemia type: unspecified Hypertension I10 Hypertension type: essential hypertension History of pulmonary embolism Z86.711 (1) Hyperlipidemia Hyperlipidemia type: unspecified Qualified Code(s): E78.5 - Hyperlipidemia, unspecified (2) Hypertension Hypertension type: essential hypertension Qualified Code(s): I10 - Essential (primary) hypertension
[2021-08-21] MEDS: SODIUM CHLORIDE 0.9% 1000ML 1,000 ML IV SCH ×2 (03:13→16:29)
[2021-08-21] MEDS: chlordiazePOXIDE HCl 25 MG CAP PO SCH ×3 (04:39→20:21)
[2021-08-21 05:02] LABS: Hematocrit (blood only) 39.3 % (42-52); Hemoglobin 13.5 g/dL (14.0-18.0); Mean Corpuscular Hemoglobin 34.3 pg (25-34); Mean Corpuscular Hgb Conc 34.4 g/dL (32-36); Mean Corpuscular Volume 99.7 fL (80-100); RDW Coefficient of Variation 13.6 % (11.5-14.5); RDW Standard Deviation 48.7 fL (36.4-46.3); Red Blood Count 3.94 M/uL (4.7-6.1); White Blood Count 6.92 K/uL (4.8-10.8)
[2021-08-21 05:26] LABS: Mean Platelet Volume 9.6 fL (7.4-10.4); Platelet Count 84 K/uL (130-400)
[2021-08-21 05:27] LABS: Basophils # (auto) 0.01 K/uL (0-0.2); Basophils % (auto) 0.1 %; Eosinophils # (auto) 0.18 K/uL (0-0.5); Eosinophils % (auto) 2.6 %; Immature Granulocytes # (auto) 0.03 K/uL (0.00-0.02); Immature Granulocytes % (auto) 0.4 %; Lymphocytes # (auto) 1.18 K/uL (1.2-3.4); Lymphocytes % (auto) 17.1 %; Monocytes # (auto) 0.53 K/uL (0.11-0.59); Monocytes % (auto) 7.7 %; Neutrophils # (auto) 4.99 K/uL (1.4-6.5); Neutrophils % (auto) 72.1 %; Platelet Estimate Decreased (Normal); RBC Morphology Unremarkable
[2021-08-21 05:34] LABS: Albumin Globulin Ratio 1.3 (0.9-2); Albumin Level 3.7 gm/dl (3.4-5.0); BUN Creatinine Ratio 17.9 (10-20); Bilirubin,Total 2.2 mg/dl (0.2-1.0); Calcium 8.3 mg/dl (8.5-10.1); Creatinine Clr Calc Pharmacy 113.3 ml/min; Est GFR (African American) 75.6 ml/min; Est GFR (Non-African American) 65.2 ml/min; Globulin 2.9 gm/dl (2.5-4.0); Magnesium 1.7 mg/dl (1.7-2.4); Potassium 4.1 mmol/L (3.5-5.1); Total Protein 6.6 gm/dl (6.0-8.3)
--- NOTE | 2021-08-21 07:16 | Hospitalist Progress Note ---
Date of Service August 21, 2021 Assessment & Plan (1) GIB (gastrointestinal bleeding): Plan: Reported blood per rectum prior to admission No bowel movement 2/2 Hemoglobin 15 on admission with suspected hemoconcentration, down trended to 13.3/12.5 - 2/3 uptrending Hgb to 13.5 PCU monitoring CBC daily Protonix 40 mg twice daily Underwent endoscopy/colonoscopy. Colonoscopy: Nonbleeding external hemorrhoids, otherwise normal exam. EGD: Esophagitis without bleeding in distal esophagus, biopsies taken. Small hiatal hernia. Mild diffuse inflammation of the stomach, biopsies taken for H. pylori testing. Normal duodenal bulb and second portion of the duodenum. Following colonoscopy/EGD diet advance as tolerated, pathology pending Resume Xarelto tomorrow morning (2) Chronic alcoholism: Plan: Frequent alcohol abuse and multiple withdrawal episodes in the past - s/p banana bag Last discharge 01/10/2021 for alcohol withdrawal. Did well with Librium and gabapentin taper, required minimal lorazepam breakthrough doses. Continue Librium protocol On gabapentin 300 mg 3 times daily Continue AWSS scoring Continue thiamine protocol, folic acid Considering rehab on discharge? Facility in [place] near his home Observe following procedure, tremors improved. If does well overnight without AWSS scoring consider completion of Librium taper as outpatient Following up with CM regarding placement/call rehab (3) Obstructive sleep apnea: Plan: Continue CPAP nightly, 14 mm (4) Hyperlipidemia: Plan: Continue home statin (5) Hypertension: Plan: Lisinopril held periprocedurally, resume after Brice (6) History of pulmonary embolism: Plan: Xarelto Zoom tomorrow morning Oxygenation stable on room air, tachycardia in the setting of possible alcohol withdrawal Plan: CODE STATUS: Full code Dispo: PCU for withdrawal DVT prophylaxis: SCDs, resume DOAC tomorrow Admission and Anticipated Discharge Date Admission Date: August 19, 2021 Subjective Seen bedside this morning. He feels the shakes have stopped completely. Does not think he is gotten any breakthrough medications, and feels he is not going through withdrawal at this time. Denies fever, chills, shakes, tremors, sweats, chest pain, chest pressure, abdomen pain, nausea, vomiting, diarrhea. Had some bowel movements this movement, does not think they have blood. Is awaiting colonoscopy at around 1130. No other questions or concerns Review of Systems Review of Systems: All systems reviewed & are unremarkable except as noted in Subjective Physical Exam Physical Exam: General: A&Ox3. NAD. Cooperative. No tremor today HEENT: Atraumatic, normocephalic. Issue daily and hearing grossly intact, not responding to internal stimuli Pulm: CTAB A&P. -wheezes, -rales, -rhonchi. Symmetrical chest rise. No increase in work of breathing. No respiratory distress. Cardiac: RRR, -mrg. Radial pulses intact and symmetrical. Abdominal: Obese, nontender, no guarding, nonrigid. Extremities: Soft touch intact in hands and feet. Results & Data Results & Data ([facility]) Vital Signs (Past 12 Hours) Vital Signs Temp Pulse Pulse Resp BP Pulse Ox 08/21/21 05:12 36.9 C 97 08/21/21 00:00 70 08/20/21 21:00 82 22 08/20/21 20:17 36.9 C 102 H 16 140/69 PG Care Time/CCT Total # of Minutes Spent Total Time Spent with Patient: Total time spent is greater than 50% in coordination of care (as documented) at patient's floor/unit and/or counseling patient: Coding Level of Care Code 37123 Subseq Hosp Care Lvl 2 Diagnoses GIB (gastrointestinal bleeding) K92.2 Chronic alcoholism F10.20 Obstructive sleep apnea G47.33 Hyperlipidemia E78.5 Hyperlipidemia type: unspecified Hypertension I10 Hypertension type: essential hypertension History of pulmonary embolism Z86.711 (1) Hyperlipidemia Hyperlipidemia type: unspecified Qualified Code(s): E78.5 - Hyperlipidemia, unspecified (2) Hypertension Hypertension type: essential hypertension Qualified Code(s): I10 - Essential (primary) hypertension
--- NOTE | 2021-08-21 09:30 | History & Physical Bridge Note ---
Date of Service August 21, 2021 History & Physical Bridge Note I have examined the patient, reviewed the History & Physical and in the interval since the performance of the History & Physical I have noted the following changes of clinical significance: no changes noted. H/H is 13.5/39.3. Patient notes he is now passing only watery green-yellow bowel movements. He reports some BRBPR last night during his bowel preparation. He has been NPO and is eager to move forward with testing. Proceed with EGD & colonoscopy today.
[2021-08-21] MEDS: PANTOprazole 40 MG in SYRINGE 0 ML IV SCH ×2 (10:27→20:22)
[2021-08-21] MEDS: FOLIC ACID 1 MG in SYRINGE 9.8 ML IV SCH (10:27)
[2021-08-21] MEDS: THIAMINE HCL 200 MG in SODIUM CHLORIDE 0.9% 50 ML IV SCH ×3 (10:27→20:21)
[2021-08-21] MEDS ORDERED: LIDOCAINE 2% 2 ML VIAL/AMP(20MG/ML) INFIL ONE (12:25)
[2021-08-21] MEDS ORDERED: PROPOFOL IV EMULSION 10 MG/ML 20 ML VIAL IV ONE ×2 (12:25→15:11)
[2021-08-21] MEDS: LORazepam 1 MG/2 ML VIAL IV PRN (13:29)
[2021-08-21] MEDS ORDERED: MIDAZOLAM HCL 1 MG/ML 2ML VIAL ONE (14:13)
--- NOTE | 2021-08-21 14:24 | Anesthesiology Consultation ---
Date of Service August 21, 2021 Assessment & Plan (1) Encounter for pre-operative examination: Chart Review Chart Review: Acceptable Risk for Surgery, Patient NOT seen in Pre Admission Testing and entry level finance initiated Consults Requested none ASA ASA3 Proposed Anesthesia Anesthesia Type: MAC Risk / Benefits Reviewed With: PT / POA / Parent / Guardian, Accepts Plan and Informed Consent Obtained History Surgery Operation Date: 08/21/21 16:30 Proposed Procedures p Colonoscopy EGD Dr. Anabella Kyle MD Height/Weight Height: 6 ft 1 in Weight: 178.8 kg Allergies Allergy/AdvReac Type Severity Reaction Status Date / Time No Known Allergies Allergy Unverified 08/19/21 14:25 Medications Home Medications Medication Instructions Recorded Confirmed Last Taken atorvastatin 40 mg tablet 40 mg PO QAM 01/08/21 08/19/21 08/14/21 lisinopril 10 mg tablet 10 mg PO QAM 01/08/21 08/19/21 08/14/21 sertraline 100 mg tablet 100 mg PO QAM 01/08/21 08/19/21 08/14/21 gabapentin 300 mg capsule 300 mg PO TID 08/19/21 08/19/21 08/14/21 rivaroxaban 20 mg tablet (Xarelto) 20 mg PO QPM 08/19/21 08/19/21 08/14/21 Active Medications Generic Name Dose Route Start Last Admin Trade Name Freq PRN Reason Stop Dose Admin Atorvastatin Calcium 40 mg 08/20/21 09:00 08/20/21 08:21 Atorvastatin 40 Mg Tab PO 09/19/21 08:59 40 mg QAM COLLEEN Administration Chlordiazepoxide HCl 50 mg 08/19/21 20:00 08/21/21 04:39 Chlordiazepoxide Hcl 25 Mg Cap PO 08/22/21 19:59 50 mg Q8H COLLEEN Administration Taper Gabapentin 300 mg 08/19/21 21:00 08/20/21 20:21 Gabapentin 300 Mg Cap PO 09/18/21 20:59 300 mg TID COLLEEN Administration Pantoprazole Sodium 40 mg/ 10 mls @ 5 mls/min 08/19/21 21:00 08/21/21 10:27 Syringe IV 09/18/21 20:59 5 mls/min BID COLLEEN Administration Folic Acid 1 mg/ Syringe 10 mls @ 5 mls/min 08/20/21 09:00 08/21/21 10:27 IV 09/19/21 08:59 5 mls/min QAM COLLEEN Administration Sodium Chloride 1,000 mls @ 100 mls/hr 08/19/21 19:54 08/21/21 14:02 Nss 1000ml IV 09/18/21 19:53 Infused .Q10H COLLEEN Infusion Lorazepam 1 mg in 2 mls @ 2 mls/min 08/19/21 19:54 08/21/21 13:29 Ativan IV 09/18/21 19:53 2 mls/min UD PRN Administration EtOH Withdrawl AWSS Score 6,7 Protocol Thiamine HCl 200 mg/ Sodium 52 mls @ 208 mls/hr 08/21/21 09:00 08/21/21 11:01 Chloride IV 08/21/21 21:01 Infused TID COLLEEN Infusion Lisinopril 10 mg 08/20/21 09:00 08/20/21 08:21 Lisinopril 10 Mg Tab PO 09/19/21 08:59 10 mg QAM COLLEEN Administration Magnesium Oxide 400 mg 08/20/21 09:30 08/20/21 20:20 Magnesium Oxide 400 Mg Tab PO 09/19/21 09:29 400 mg BID COLLEEN Administration Sertraline HCl 100 mg 08/20/21 09:00 08/20/21 08:21 Sertraline Hcl 100 Mg Tablet PO 09/19/21 08:59 100 mg QAM COLLEEN Administration NPO Date Last Intake of Fluids: 08/21/21 Time Last Intake of Fluids: 03:00 Date Last Intake of Solids: 08/18/21 Time Last Intake of Solids: 18:00 Past Medical History Medical History Alcohol dependence Anxiety and depression Hyperlipidemia Hypertension Obstructive sleep apnea Exercise / Class Metabolic Activity II 4-5 Yardwork/Stairs/Walk up hill Past Family History Family History Other Family history non-contributory Past Surgical History Surgical History H/O knee surgery ACL left, meniscus repair right History of back surgery discectomy History of nasal surgery broken nose Past Anesthesia History No Hx of Anesthesia Complications and No Family Hx of Anesthesia Complications History of PONV No Hx of PONV and No Hx of Motion Sickness Social History Smoking Status: Former smoker Do You Dip or Chew Tobacco: No Hx Alcohol Use: Yes Alcohol type: hard liquor alcohol intake frequency: 3 or more drinks per day Hx Substance Use: No Physical Exam Vital Signs Last Vital Signs Temp 36.7 C 08/21/21 14:15 Pulse 77 08/21/21 14:15 Resp 18 08/21/21 14:15 BP 147/77 H 08/21/21 14:15 Pulse Ox 97 08/21/21 14:15 Constitutional + morbidly obese ENMT Mouth: + dentition abnormality (Missing 1 tooth) and + dental restorations (Cap); no chipped teeth and no loose teeth Thyromental Distance: > or= 3.5 Finger Breadths Mallampati Class: III Neck normal visual inspection, trachea midline and + thick neck; neck extension not limited Respiratory normal respiratory effort; no respiratory distress Auscultation: lungs clear to auscultation bilaterally; no crackles, no rhonchi and no wheezes Cardiovascular Rate/Rhythm: regular rate and regular rhythm Heart Sounds: no gallop, no murmur and no cardiac rub Neurologic moves all extremities and awake Psychiatric Orientation: alert Testing Laboratory Results 08/21/21 04:55 08/21/21 04:55 PT 10.1 Seconds (9.0-12.0) 08/19/21 13:22 INR 1.0 (0.9-1.1) 08/19/21 13:22 APTT 26.6 Seconds (21.0-31.0) 08/19/21 13:22 Blood Type O Positive 08/19/21 13:47 Antibody Screen NEGATIVE 08/19/21 13:47 Electrocardiogram Date: 08/19/21 Findings: + NSR @ PACs with aberrancy Chest X-Ray Date: 08/19/21 Findings: + NAD
--- NOTE | 2021-08-21 15:00 | GI REPORT ---
Patient Name: Murray Hodge Procedure Date: 08/21/2021 2:10 PM Date of : 1965 Admit Type: Inpatient Age: 56 Gender: Male Attending MD: Juan Kyle MD Procedure: Upper GI endoscopy Providers: Juan Kyle MD Referring MD: Referred Self Indications: Unexplained iron deficiency anemia, Hematochezia Medicines: Monitored Anesthesia Care Complications: No immediate complications. Estimated blood loss: None. Estimated Blood Loss: Estimated blood loss: none. Procedure: Pre-Anesthesia Assessment: - Prior Anticoagulants: The patient has taken no previous anticoagulant or antiplatelet agents. - ASA Grade Assessment: IV - A patient with severe systemic disease that is a constant threat to life. After obtaining informed consent, the endoscope was passed under direct vision. Throughout the procedure, the patient's blood pressure, pulse, and oxygen saturations were monitored continuously. The Endoscope was introduced through the mouth, and advanced to the second part of duodenum. The upper GI endoscopy was accomplished without difficulty. The patient tolerated the procedure well. Findings: LA Grade A (one or more mucosal breaks less than 5 mm, not extending between tops of 2 mucosal folds) esophagitis with no bleeding was found in the distal esophagus. Biopsies were taken with a cold forceps for histology. Estimated blood loss: none. A small hiatal hernia was present. Diffuse mild inflammation characterized by erythema was found in the stomach. Biopsies were taken with a cold forceps for Helicobacter pylori testing. Estimated blood loss: none. The duodenal bulb and second portion of the duodenum were normal. Impression: - LA Grade A esophagitis. Biopsied. - Small hiatal hernia. - Gastritis. Biopsied. - Normal duodenal bulb and second portion of the duodenum. Recommendation: - [facility]. - Advance diet as tolerated today. - Await pathology results. Juan Kyle MD 08/21/2021 2:59:30 PM This report has been signed electronically. Note Initiated On: 08/21/2021 2:10 PM Number of Addenda: 0 I attest to the content of the Intraoperative Record and orders documented therein, exceptions below {[id number]}
--- NOTE | 2021-08-21 15:01 | GI REPORT ---
Patient Name: Murray Hodge Procedure Date: 08/21/2021 2:10 PM Date of : 1965 Admit Type: Inpatient Age: 56 Gender: Male Attending MD: Juan Kyle MD Procedure: Colonoscopy Providers: Juan Kyle MD Referring MD: Referred Self Indications: Hematochezia, Acute post hemorrhagic anemia Medicines: Monitored Anesthesia Care Complications: No immediate complications. Estimated blood loss: None. Estimated Blood Loss: Estimated blood loss: none. Procedure: Pre-Anesthesia Assessment: - Prior Anticoagulants: The patient has taken no previous anticoagulant or antiplatelet agents. - ASA Grade Assessment: IV - A patient with severe systemic disease that is a constant threat to life. - After reviewing the risks and benefits, the patient was deemed in satisfactory condition to undergo the procedure. After I obtained informed consent, the scope was passed under direct vision. Throughout the procedure, the patient's blood pressure, pulse, and oxygen saturations were monitored continuously. The scope was introduced through the anus and advanced to the cecum, identified by appendiceal orifice and ileocecal valve. The colonoscopy was performed without difficulty. The patient tolerated the procedure well. The quality of the bowel preparation was fair. Findings: Non-bleeding external hemorrhoids were found. The hemorrhoids were small. The exam was otherwise without abnormality. No evidence of blood, ulcers, AVMs, polyps, diverticula. Impression: - Preparation of the colon was fair. - Non-bleeding external hemorrhoids. - The examination was otherwise normal. - No specimens collected. Recommendation: - [facility]. - Advance diet as tolerated today. - Repeat colonoscopy in 5 years for screening purposes. Juan Kyle MD 08/21/2021 3:01:22 PM This report has been signed electronically. Note Initiated On: 08/21/2021 2:10 PM Number of Addenda: 0 I attest to the content of the Intraoperative Record and orders documented therein, exceptions below {[id number]}
--- NOTE | 2021-08-21 15:21 | Anesthesiology Progress Note ---
Date of Service August 21, 2021 Anesthesia Post Procedure Vital Signs Vital Signs: Temp Pulse Pulse Pulse Resp BP BP 08/21/21 15:18 76 18 132/63 08/21/21 15:03 80 18 141/83 H 08/21/21 14:15 36.7 C 77 18 147/77 H 08/21/21 13:36 36.8 C 08/21/21 13:23 96 H 16 154/98 H 08/21/21 12:00 85 24 08/21/21 11:02 36.8 C 08/21/21 10:00 80 20 08/21/21 08:45 36.5 C 08/21/21 08:34 74 25 H 166/81 H 08/21/21 08:00 77 17 08/21/21 06:00 102 H 13 08/21/21 05:23 79 23 113/63 08/21/21 05:12 36.9 C 08/21/21 04:00 77 15 08/21/21 02:00 78 16 08/21/21 00:00 79 19 08/20/21 22:00 83 17 08/20/21 21:00 82 22 08/20/21 20:40 88 16 140/69 08/20/21 20:17 36.9 C 102 H 16 140/69 08/20/21 20:00 117 H 18 08/20/21 18:00 91 H 21 08/20/21 16:04 36.9 C 102 H 24 150/88 H 08/20/21 16:00 96 H 14 150/88 H Pulse Ox 08/21/21 15:18 96 08/21/21 15:03 97 08/21/21 14:15 97 08/21/21 13:36 08/21/21 13:23 97 08/21/21 12:00 08/21/21 11:02 08/21/21 10:00 08/21/21 08:45 08/21/21 08:34 08/21/21 08:00 08/21/21 06:00 08/21/21 05:23 08/21/21 05:12 97 08/21/21 04:00 08/21/21 02:00 08/21/21 00:00 08/20/21 22:00 08/20/21 21:00 08/20/21 20:40 97 08/20/21 20:17 08/20/21 20:00 08/20/21 18:00 08/20/21 16:04 96 08/20/21 16:00 94 Transfer of Care Handoff Completed per policy Notes Mental Status: alert / awake / arousable and participated in evaluation Patient Amnestic to Procedure: Yes Nausea / Vomiting: adequately controlled Pain: adequately controlled Airway Patency, RR, SpO2: stable & adequate BP & HR: stable & adequate Hydration State: stable & adequate Anesthetic Complications: no major complications apparent and Pt Satisfied with anesthetic care
[2021-08-21] MEDS: GABAPENTIN 300 MG CAP PO SCH ×3 (16:21→20:22)
[2021-08-21] MEDS: SERTRALINE HCL 100 MG TABLET PO SCH (16:22)
[2021-08-21] MEDS: ATORVASTATIN 40 MG TAB PO SCH (16:22)
[2021-08-21] MEDS: MAGNESIUM OXIDE 400 MG TAB PO SCH ×2 (16:22→20:22)
[2021-08-21] MEDS ORDERED: MELATONIN 3 MG TAB PO PRN (20:07)
[2021-08-22 04:50] LABS: Hematocrit (blood only) 33.7 % (42-52); Hemoglobin 11.5 g/dL (14.0-18.0); Mean Corpuscular Hemoglobin 33.9 pg (25-34); Mean Corpuscular Hgb Conc 34.1 g/dL (32-36); Mean Corpuscular Volume 99.4 fL (80-100); RDW Coefficient of Variation 13.5 % (11.5-14.5); RDW Standard Deviation 47.9 fL (36.4-46.3); Red Blood Count 3.39 M/uL (4.7-6.1); White Blood Count 4.87 K/uL (4.8-10.8)
[2021-08-22] MEDS: chlordiazePOXIDE HCl 25 MG CAP PO SCH ×2 (05:25→12:16)
[2021-08-22 05:30] LABS: Mean Platelet Volume 9.6 fL (7.4-10.4); Platelet Count 65 K/uL (130-400)
[2021-08-22 05:32] LABS: Albumin Globulin Ratio 1.3 (0.9-2); Albumin Level 3.2 gm/dl (3.4-5.0); BUN Creatinine Ratio 14.4 (10-20); Calcium 7.9 mg/dl (8.5-10.1); Creatinine Clr Calc Pharmacy 125.6 ml/min; Est GFR (African American) 85.6 ml/min; Est GFR (Non-African American) 73.8 ml/min; Globulin 2.5 gm/dl (2.5-4.0); Potassium 4.1 mmol/L (3.5-5.1); Total Protein 5.7 gm/dl (6.0-8.3)
[2021-08-22 05:37] LABS: Basophils # (auto) 0.01 K/uL (0-0.2); Basophils % (auto) 0.2 %; Eosinophils # (auto) 0.17 K/uL (0-0.5); Eosinophils % (auto) 3.5 %; Immature Granulocytes # (auto) 0.03 K/uL (0.00-0.02); Immature Granulocytes % (auto) 0.6 %; Lymphocytes # (auto) 0.88 K/uL (1.2-3.4); Lymphocytes % (auto) 18.1 %; Monocytes # (auto) 0.26 K/uL (0.11-0.59); Monocytes % (auto) 5.3 %; Neutrophils # (auto) 3.52 K/uL (1.4-6.5); Neutrophils % (auto) 72.3 %
[2021-08-22] MEDS: FOLIC ACID 1 MG in SYRINGE 9.8 ML IV SCH (08:20)
[2021-08-22] MEDS: ATORVASTATIN 40 MG TAB PO SCH (08:26)
[2021-08-22] MEDS: MAGNESIUM OXIDE 400 MG TAB PO SCH (08:26)
[2021-08-22] MEDS: GABAPENTIN 300 MG CAP PO SCH ×2 (08:26→15:02)
[2021-08-22] MEDS: SERTRALINE HCL 100 MG TABLET PO SCH (08:53)
[2021-08-22] MEDS: PANTOprazole 40 MG in SYRINGE 0 ML IV SCH (08:53)
[2021-08-22] MEDS ORDERED: THIAMINE HCL 100 MG in SYRINGE 9 ML IV SCH (09:00)
[2021-08-22] MEDS ORDERED: HYDROCORTISONE HC 2.5% CRM 30GM TUBE EXT PRN (09:36)
--- NOTE | 2021-08-22 18:16 | Discharge Summary ---
Date of Service August 22, 2021 Admission HPI Per Admitting Provider This is a 56-year-old male past medical history of chronic alcoholism, SHELBIE, PE, morbid obesity that presents today with rectal bleeding. Patient is a somewhat limited historian, is at bedside who is able to help somewhat. Patient and live in [place], but he travels this area for work. He states in his own apartment. Patient states that he has been having some rectal bleeding over the past few weeks. This is typically bright red blood with bowel movements, associated with pain when he moves his bowels. He also notes some pain in the very left lower quadrant. He made an appointment with a GI sp ecialist near his home but will not be seen until September. More recently, he has noted that he has had a few of black bowel movements, does not necessarily associate this is "tarry "but does say that this is not his normal symptoms. He has had some nausea but no vomiting, bloody or otherwise. Also of note, the patient is a chronic alcoholic. He has apparently been in outpatient rehab in the past but the states that he did drink during this period of time as well as after. He has had alcohol withdrawal in the past and has a LASHAWN over 300 on presentation here. He quantifies his alcohol use is 3 pints of whiskey a day. tells me that she came to see the patient found in his apartment was covered in feces, she found several large bottles of whiskey that were empty. The patient seem to be a little confused which prompted her to bring him to the hospital. Patient does state that he has had nothing to eat or drink other than alcohol in the past several days. Patient self is mostly alert and awake. He is somewhat evasive with certain answers and is difficult to tell if he is a reliable historian. Patient is now being admitted for alcohol withdrawal as well as GI bleeding is noted. Of note, he does have a previous PE and is on Xarelto for this. Principal Diagnosis EtoH Withdrawal Hemorrhoidal Bleeding Discharge Exam General: A&Ox3. NAD. Cooperative. No tremor today HEENT: Atraumatic, normocephalic.Visual acuity and hearing grossly intact Pulm: CTAB A&P. -wheezes, -rales, -rhonchi. Symmetrical chest rise. No increase in work of breathing. No respiratory distress. Cardiac: RRR, -mrg. Radial pulses intact and symmetrical. Abdominal: Obese, nontender, no guarding, nonrigid. Extremities: Extremity strength intact in upper and lower extremities without deficit or asymmetry. Station to soft touch intact in hands and feet without deficit Discharge Data Allergies Allergy/AdvReac Type Severity Reaction Status Date / Time No Known Allergies Allergy Unverified 08/19/21 14:25 Consultations 08/19/21 15:36 ED Decision to Admit Stat 08/19/21 19:54 Consult Gastroenterology Routine Procedures Performed Operation Date: 08/21/21 16:30 Actual Procedures p EGD Biopsy Cytology - Juan Kyle MD s Colonoscopy - Juan Kyle MD Ordered Studies 08/19/21 13:37 CT abd pelvis IV con only Stat Hospital Course (1) GIB (gastrointestinal bleeding): Murray is a 56-year-old male with a history of alcohol abuse, withdrawal who presented with concerns for withdrawal and GI bleeding. Hemoglobin had a slight downtrend around 13.3/12.5, then up trended. Endoscopy and colonoscopy showed hemorrhoids and some esophagitis/gastritis without any ulcers or other sources of bleeding. Patient was tolerating a normal diet, did not require DANNY scoring, and did not have any tremors or symptoms of withdrawal on day of discharge. Bleeding was thought to be bright red and due to hemorrhoidal bleeding. He was discharged to complete a home Librium taper with 1 day remaining, and follow-up to his PCP. To do as outpatient 1. Completion of Librium taper 2. Did decline referral to alcohol cessation resources, rehab. Would continue to encourage these, and did discuss that withdrawal is a potentially fatal process each time he goes through it, and ongoing alcohol abuse is likely to reproduce/worsen this and cause organ damage including liver disease over time 3. Routine follow-up with PCP 4. Resume Xarelto, patient with history of multiple DVT/PE. Discussed that he could continue to have bleeding while on this, but unless he were to have a critical or life-threatening bleed due to his recurrent DVT he should continue Xarelto as his risk of embolus is high. 5. Followup GI biopsy pathology results Reported blood per rectum prior to admission No bowel movement 2/2 Hemoglobin 15 on admission with suspected hemoconcentration, down trended to 13.3/12.5 then uptrended PCU monitoring CBC daily Protonix 40 mg twice daily Underwent endoscopy/colonoscopy. Colonoscopy: Nonbleeding external hemorrhoids, otherwise normal exam. EGD: Esophagitis without bleeding in distal esophagus, biopsies taken. Small hiatal hernia. Mild diffuse inflammation of the stomach, biopsies taken for H. pylori testing. Normal duodenal bulb and second portion of the duodenum. Following colonoscopy/EGD diet advanced, pathology pending Resume Xarelto tomorrow morning (2) Chronic alcoholism: Frequent alcohol abuse and multiple withdrawal episodes in the past - s/p banana bag Last discharge 01/10/2021 for alcohol withdrawal. Did well with Librium and gabapentin taper, required minimal lorazepam breakthrough doses. Continue Librium protocol On gabapentin 300 mg 3 times daily Continue AWSS scoring Continue thiamine protocol, folic acid Considering rehab on discharge? Facility in [place] near his home. Patient declined this on discharge Observe following procedure, tremors improved. Patient had no tremors and no additional doses needed overnight prior to discharge. (3) Obstructive sleep apnea: Continue CPAP nightly, 14 mm (4) Hyperlipidemia: Continue home statin (5) Hypertension: Lisinopril held periprocedurally, resume after [place] (6) History of pulmonary embolism: Xarelto resumed morning of discharge Oxygenation stable on room air, tachycardia in the setting of possible alcohol withdrawal CODE STATUS: Full code Dispo: PCU for withdrawal DVT prophylaxis: SCDs, resume DOAC tomorrow Total Time Total Time Spent Total Time Spent (In Minutes): Time spend day of 35 discharge minutes including direct patient care, documentation, review of labs and images, and coordination of care. Discharge Plan Discharge Items Patient Disposition: Home - Self-Care Reason For Visit: GIB, ALCOHOL WITHDRAWAL Discharge Diagnosis: GIB Condition on Discharge: Fair Activity: Per Instructions section Non-emergency contact: Primary Care Provider Call non-emergency contact if: you have any medication questions, your symptoms worsen and you have a fever Follow-up/Referrals: PCP,NO [Primary Care Provider] - Diet: Regular Addtl Attending Provider Instructions: You were seen in the hospital for concerns of an acute GI bleed. A colonoscopy showed nonbleeding external hemorrhoids, which were small. There is no evidence of ulcers, blood, malformations, polyps, or diverticuli in your colon. An upper endoscopy was performed which showed mild inflammation and erythema of the stomach, samples of your esophagus and stomach were taken for testing which is pending. You did show esophagitis (inflammation of the esophagus). Your red blood cell counts ranged from 11.5-13.5, well above a transfusion threshold of 7. You should have these rechecked as an outpatient to ensure stability as they went down slightly day of discharge without clinical bleeding or hemodynamic instability low risk/benefits of staying for additional observation were discussed with you, and you preferred to be discharged with outpatient monitoring. On initial admission you felt tremulous and were concerned for alcohol withdrawal which you have experienced before. He did not require any additional lorazepam overnight prior to discharge, and did well on a Librium taper. You are discharged to complete a Librium taper as below. 08/22/2021: Chlordiazepoxide every 8 hours 08/23/2021: Chlordiazepoxide every 12 hours 08/24/2021: No additional medications. Every time you go through alcohol withdrawal is a potentially fatal process. Alcohol withdrawal protocols can help reduce the symptoms of withdrawal, but do not prevent withdrawal. You are increased risk of tremors and seizures. Continued alcohol use in the future is likely to reproduce or worsen your withdrawal, and cause liver and other systemic disease. Rehab options and alcohol cessation strategies were discussed during admission, you have been connected to these before and were not interested in additional referrals at time of hospitalization/discharge. Your hemoglobin was stable, and no active bleeding was appreciated on your GI evaluation. You are on an anticoagulant, rivaroxaban, for your history of pulmonary embolism. This was restarted as a risk of clots remains elevated. You should not drink on this medication. You should have a recheck of your blood levels as noted below, and reconsider the risk/benefits of being on this medication with your outpatient provider if you have continued bleeding or hemoglobin decreases You receive most of your medical care in [place]. A family doctor appointment local to [place] is being set up for you. Please have a CBC performed at that appointment to check your blood levels. You have had recurrent blood clots in the leg/lungs, and it is very important to remain on your blood thinner. Please continue taking your rivaroxaban daily, and discuss with your doctor or return to the ER for evaluation if you have any continued bleeding. You were noted to have hemorrhoids on your colonoscopy. These can bleed and cause bright red blood in the toilet/on the toilet paper. A cream has been prescribed to help with these as noted below. If you develop any new or worsening symptoms including fever, chills, sweats, chest pain, chest pressure, difficulty breathing, uncontrolled nausea/vomiting, rash, wheezing, passing out or nearly passing out, bleeding, black/bloody bowel movements, or other new or concerning symptoms please call your primary care physician, or call 911 for re-evaluation in the emergency department if you are very concerned. Pending Studies at Discharge: No Stand-Alone Forms: My [facility], Smoking Cessation Medications and DC Order Prescriptions: New chlordiazepoxide HCl 25 mg Capsule 25 mg PO HS Qty: 1 RF: 0 chlordiazepoxide HCl 10 mg Capsule 10 mg PO Q12H Qty: 2 RF: 0 hydrocortisone [Anusol-HC] 2.5 % cream with perineal applicator 1 applic GA BID PRN (Reason: hemorrhoids) Qty: 30 RF: 0 Continued atorvastatin 40 mg tablet 40 mg PO QAM RF: 0 lisinopril 10 mg tablet 10 mg PO QAM RF: 0 sertraline 100 mg tablet 100 mg PO QAM RF: 0 Xarelto 20 mg tablet 20 mg PO QPM RF: 0 gabapentin 300 mg capsule 300 mg PO TID RF: 0 Discharge Orders: Discharge Order (Routine); Ordered 08/22/21 Ordered By: Bharat Desai Admission Data Admit Date/Time: 08/19/21 17:49 Attending Provider: Bharat Desai Admit Provider: Mg Henao Primary Care Provider: PCP,NO Other Providers: Mg Henao ; Eduardo Goldberg Other Interventions: Discharge Summary Assessment (RN) Last Done: 08/22/21 15:05 Coding Level of Care Code D/C DAY MANAGEMENT >30 MINS Diagnoses GIB (gastrointestinal bleeding) K92.2 Chronic alcoholism F10.20 Obstructive sleep apnea G47.33 Hyperlipidemia E78.5 Hyperlipidemia type: unspecified Hypertension I10 Hypertension type: essential hypertension History of pulmonary embolism Z86.711
== END 2021-08-22 19:45 | disposition home or self-care (01) | DRG 394 ==
LOC: ED 13:05 → 1E 17:49 → SUATTDRO 17:49 → 1E 19:30

== ENCOUNTER 2021-10-28 11:56 | Inpatient (IN) ==
[2021-10-28] MEDS ORDERED: MULTI-VITAMIN INFUSION 10 ML, THIAMINE HCL 100 MG, FOLIC ACID 1 MG in SODIUM CHLORIDE 0... IV ONE (12:18)
[2021-10-28] MEDS ORDERED: SODIUM CHLORIDE 0.9% 1000ML 1,000 ML IV ONE (12:18)
[2021-10-28 12:30] LABS: Basophils # (auto) 0.03 K/uL (0-0.2); Basophils % (auto) 0.3 %; Eosinophils # (auto) 0.13 K/uL (0-0.5); Eosinophils % (auto) 1.3 %; Hematocrit (blood only) 36.3 % (42-52); Hemoglobin 12.3 g/dL (14.0-18.0); Immature Granulocytes # (auto) 0.04 K/uL (0.00-0.02); Immature Granulocytes % (auto) 0.4 %; Lymphocytes # (auto) 1.57 K/uL (1.2-3.4); Mean Corpuscular Hemoglobin 33.3 pg (25-34); Mean Corpuscular Hgb Conc 33.9 g/dL (32-36); Mean Corpuscular Volume 98.4 fL (80-100); Monocytes % (auto) 10.2 %; Neutrophils # (auto) 7.07 K/uL (1.4-6.5); Neutrophils % (auto) 71.8 %; Platelet Count 184 K/uL (130-400); RDW Coefficient of Variation 14.5 % (11.5-14.5); RDW Standard Deviation 52.2 fL (36.4-46.3); Red Blood Count 3.69 M/uL (4.7-6.1); White Blood Count 9.84 K/uL (4.8-10.8)
[2021-10-28 12:42] LABS: Prothrombin Time 10.8 Seconds (9.0-12.0)
[2021-10-28 12:53] LABS: Albumin Globulin Ratio 1.3 (0.9-2); Albumin Level 4.4 gm/dl (3.4-5.0); BUN Creatinine Ratio 10.5 (10-20); Bilirubin,Total 1.9 mg/dl (0.2-1.0); Calcium 9.1 mg/dl (8.5-10.1); Creatinine Clr Calc Pharmacy 34.4 ml/min; Est GFR (African American) 16.7 ml/min; Est GFR (Non-African American) 14.4 ml/min; Globulin 3.4 gm/dl (2.5-4.0); Magnesium 1.9 mg/dl (1.7-2.4); Phosphorus 4.4 mg/dl (2.5-4.9); Potassium 4.3 mmol/L (3.5-5.1); Total Protein 7.8 gm/dl (6.0-8.3)
--- NOTE | 2021-10-28 12:59 | XRay Report ---
XR chest 1V portable CLINICAL HISTORY: Chest Pain. COMPARISON STUDY: 08/19/2021 TECHNIQUE: 1 view of the chest FINDINGS: Single frontal view of the chest demonstrates the cardiomediastinal silhouette to be within normal li mits. The lungs are clear of alveolar opacities. There is no evidence for pleural effusion. There is no evidence for vascular congestion. There is no acute osseous pathology. IMPRESSION: 1. No acute cardiopulmonary disease. ACT 112: Negative or not required by law. Electronically signed by: Masood Landrum M.D. 10/28/2021 12:58 PM
--- NOTE | 2021-10-28 13:07 | CT Scan Report ---
CT head/brain wo con CLINICAL HISTORY: syncope, head strike last week, xarelto Technique: Contiguous axial CT images of the head were acquired from the base of the skull to the trey chichi without intravenous contrast administration. Images were viewed in brain, subdural and bone windo ws. Automated dose lowering techniques and/or adjustment according to patient size were utilized for this exam. Comparison: None available at the time of this dictation. Findings: The ventricles, basal cisterns, and cerebral sulci are normal. There is no acute intracranial hemorrh age or evidence of acute territorial infarction. Neither mass effect, shift of the midline structures , nor abnormal extra-axial fluid collections are shown. Imaged portions of the paranasal sinuses and mastoid air cells are clear. The orbits appear normal. There are no acute fractures of the calvaria or scalp swelling. Impression: No acute intracranial hemorrhage, no evidence of acute territorial infarction or other acute intracra nial disease process. ACT 112: Negative or not required by law. Electronically signed by: Scott Celis M.D. 10/28/2021 1:05 PM
[2021-10-28] MEDS ORDERED: THIAMINE HCL 200 MG in SODIUM CHLORIDE 0.9% 50 ML IV STA ×2 (13:36→15:59)
[2021-10-28] MEDS ORDERED: LACTATED RINGER'S 500 ML IV ONE (14:29)
--- NOTE | 2021-10-28 14:50 | CT Scan Report ---
CT abd pelvis wo con CLINICAL HISTORY: acute renal failure TECHNIQUE: Helical axial images of the abdomen and pelvis were obtained. Automated dose lowering tech niques and/or adjustment according to patient size were utilized for this exam. This exam was perfor med without intravenous contrast. COMPARISON: Comparison is made to CT abdomen pelvis 08/19/2021 FINDINGS: Lower chest: No acute abnormality Liver: Unremarkable. No focal lesions are seen. Gallbladder and biliary tree: No calcified gallstones. Normal caliber wall. No intra- or extrahepatic biliary ductal dilation. Pancreas: Unremarkable, no focal lesions. Spleen: Unremarkable. Adrenals: Unremarkable. Kidneys and ureters: Unremarkable. Bladder: Limited evaluation due to underdistention. Reproductive organs: Unremarkable. Bowel: Unremarkable. Lymph nodes Retroperitoneal: Unremarkable. Mesenteric: Unremarkable. Pelvic: Unremarkable. Peritoneum: Normal. Vessels: Atherosclerotic calcifications are seen. Abdominal wall: Unremarkable. Bones: Degenerative changes in the visualized spine. IMPRESSION: No acute abnormalities. In particular, no evidence of hydronephrosis or other acute renal abnormality . ACT 112: Negative or not required by law. Electronically signed by: Scott Celis M.D. 10/28/2021 2:48 PM
--- NOTE | 2021-10-28 15:12 | History & Physical Report ---
Date of Service October 28, 2021 Assessment & Plan (1) Acute kidney injury: Plan: Pre-renal due to severe hypotension. Pre-renal etiologies - multiple BP meds including LAVERN inhibitor, diuretic use, questionable poor liquid intake. I cannot rule out intrinsic renal dysfunction from COVID infection. Doubt obstruction as ureters are normal on CT, but bladder was unable to be evaluated on CT - thus, obtain renal u/s. Check u/a for casts. Check urine Na and urine Cr. Isotonic fluids, normalize his BP, hold all anti-hypertensive medications, and obtain a repeat BMP tonight then again in am. Will obtain records from his [facility] stay from September 2021. (2) Hypotension: Plan: Iatrogenic from multiple BP meds? Poor liquid intake? Sepsis from COVID infection? Other? BPs already improved with copious fluids in ER. Hold all BP meds. Consider cortisol level to r/o adrenal insufficiency as reports several months of dizzy spells. (3) Syncope: Plan: Neurocardiogenic in etiology (low BP). see above. Strongly consider echo to check LV/RV function in light of multiple PE events in the past. Place on telemetry to r/o dysrhythmia but history not c/w such. (4) COVID-19 virus infection: Plan: Suspect he is in the first 48 hours of his illness. His severe fatigue, injected eyes, runny nose, etc are c/w viral process. Place in airborne precautions. Although he had COVID-19 infection in early July 2021 he had negative COVID testing in August (and Delta variant was dominant in early July). Thus, I suspect he has reinfection with Omicron variant. Supportive care. No indication for Remdesivir, dexamethasone, etc. (5) Recurrent pulmonary emboli: Plan: Multiple VTE episodes over the last 20 years. This, coupled with his mother's history of multiple VTE episodes, is concerning for a genetic/hereditary hypercoagulable state. He reports never having a genetic work-up. O2 sats are stable today; no clinical evidence of another VTE event today. Continue Eliquis for now, but I am concerned that this may not be the best option for him given his weight, etc. Coumadin would likely be best. Will discuss this with him while here. (6) Recurrent deep vein thrombosis (DVT): (7) Chronic alcoholism: Plan: No daily etoh intake in several months. [id number] place on etoh withdrawal precautions. Thiamine, folate, MVI supplementation. Telemetry. (8) Obstructive sleep apnea: Plan: Continue CPAP 14cm H20. (9) Hyperlipidemia: Plan: Continue statin. (10) Hypertension: Plan: HOLD ALL anti-hypertensives. (11) Morbid obesity with BMI of 50.0-59.9, adult: Plan: BMI 54 (12) DVT prophylaxis: Plan: Eliquis Plan: I updated the pt's by phone this evening. Questions answered. History of Present Illness Chief Complaint: syncope, severe fatigue Primary Care Provider: NO PCP 56yo male with h/o recurrent VTE currently on Eliquis (20 years ago following back surgery, then 8-9 years ago, 05/2021, then in 07/2021), HTN, alcohol abuse - presents with multiple episodes of syncope or near-syncope over the last week. About 1 week ago he was sitting in his chair in his apartment when he passed out for a few seconds after standing up. He then had another syncopal episode yesterday after standing up from his chair in his apartment after unloading some groceries. During this 2nd episode he only had loss of consciousness for a few seconds. He continued to feel dizzy/lightheaded and "exhausted." Went to bed at 5pm last night and awoke after 6am this am. He reports having runny nose x 1 week, and his 20yo son is sick with URI/cough back home in [place]. Patient managed to go to work this am and while attending a meeting again had near-syncope. His co-workers brought him to the hospital after his SBP at work was in the 80s. Upon arrival at [facility] his SBP was in the 70s. During my assessment his SBP was now >100 s/p multiple fluid boluses. COVID testing is positive. Had previous 2-shot vaccine series as well. Patient states he was hospitalized at [facility] in September for acute renal failure. He does not recall what his creatinine was. Finally, after having had PEs/DVT in 05/2021 he was placed on Eliquis. After 1-2 months of using Eliquis he was changed to Xarelto because of insurance issues. He then developed recurrent VTE in July 2021 while on Xarelto? In response to such he was taken off the Xarelto and placed back on Eliquis. He confirms he is taking it twice daily. Later in the evening I spoke with the patient's by phone. She reports that he had COVID-19 infection in early July 2021 (she remembers the dates because she tested positive about 5 days after him). Additionally, she states he has had dizziness "for months." Allergies Allergy/AdvReac Type Severity Reaction Status Date / Time No Known Allergies Allergy Verified 10/28/21 15:18 Home Medications Medication Instructions Recorded Confirmed Type atorvastatin 40 mg tablet 40 mg PO QAM 01/08/21 10/28/21 History lisinopril 10 mg tablet 10 mg PO QAM 01/08/21 10/28/21 History sertraline 100 mg tablet 100 mg PO QAM 01/08/21 10/28/21 History gabapentin 300 mg capsule 300 mg PO TID PRN 08/19/21 10/28/21 History apixaban 5 mg tablet (Eliquis) 5 mg PO BID 10/28/21 10/28/21 History chlorthalidone 25 mg tablet 25 mg PO DAILY 10/28/21 10/28/21 History folic acid 1 mg tablet 1 mg PO DAILY 10/28/21 10/28/21 History multivitamin 1 tab PO DAILY 10/28/21 10/28/21 History tamsulosin 0.4 mg capsule 0.4 mg PO DAILY 10/28/21 10/28/21 History thiamine HCl (vitamin B1) 100 mg 100 mg PO DAILY 10/28/21 10/28/21 History tablet (Vitamin B-1) Past Med/Surg History Medical History (Updated 10/28/21 @ 21:43 by Santi Christianson) Acute duodenitis Alcohol abuse Alcohol dependence Anxiety and depression Esophagitis Hyperlipidemia Hypertension Obstructive sleep apnea Rectal bleeding Recurrent deep vein thrombosis (DVT) Recurrent pulmonary emboli Surgical History H/O knee surgery ACL left, meniscus repair right History of back surgery discectomy History of nasal surgery broken nose Family History Mother Alzheimer disease Pulmonary embolism Social History (Updated 10/28/21 @ 16:06 by Santi Christianson) Smoking Status: Never smoker Tobacco Type: Cigarettes Second Hand Exposure: No; Do You Dip or Chew Tobacco: No; Tobacco Cessation Education Requested by Patient: No Hx Alcohol Use: Yes Alcohol type: hard liquor Alcohol Intake Frequency: 4 or More x per/Week Alcohol Intake Frequency Comment: 2 pints/day up until 2 months ago Hx Substance Use: No Preferred Language: Bolivian Communication Ability: Effective Product Safety Officer Required: No Beliefs That Will Affect Care: None marital status: Current Living Situation: Spouse and Family Current Living Situation Comment: home in [place]- lives in apartment during week for work current occupation: construction company in [employer] How many Children do You have: 4 Other Information That Helps Us Care for You: No (hx of blood clots, PE x2, start in legs) Feels Safe at Home: Yes Safety Concerns: Feels Safe At This Time Assistive Devices: CPAP and Glasses Review of Systems Review of Systems: gen - no recent weight changes; severe fatigue last 24 hours; appetite has been normal; no fevers/chills eyes - fuzzy vision with his dizziness but no visual field cuts or deficits HENT - no dysphagia or sore throat; mild runny nose neck - no pain CV - no chest pain pulm - no cough, congestion, dyspnea or COSBY GI - no abd pain, N/V, diarrhea, or blood in stool - no dysuria musculo - denies myalgias skin - no rash neuro - no focal motor weakness; chronic paresthesias of feet - takes gabapentin endo - denies diabetes psych - denies any daily etoh intake in several months but does admit to 1 drink this past weekend in [place] lymph - no swollen glands Physical Exam Physical Exam: gen - morbidly obese, NAD, pleasant; looks tired eyes - injected conjunctiva, no discharge; PERRL HENT - mouth - dry MM, no lesions neck - no lymphadenopathy, no thyroid masses heart - RRR, s1 s2, no murmur lungs - CTA b/l abd - liver edge palpable, BS+, NT, ND, soft ext - no edema, pulses 2+ b/l skin - no rash neuro - strength 5/5 x 4 exts; no facial droop; speech fluent/clear lymph - no cervical lymph nodes b/l Results & Data Results & Data ([facility]) Vital Signs (Past 12 Hours) Vital Signs Temp Pulse Pulse Resp BP BP Pulse Ox 10/28/21 14:15 74 19 92/36 L 10/28/21 14:00 77 13 83/38 L 10/28/21 13:46 72 17 81/41 L 10/28/21 13:45 72 16 10/28/21 13:31 69 18 84/39 L 94 10/28/21 13:30 74 16 95 10/28/21 13:15 77 11 L 87/41 L 95 10/28/21 13:06 81 19 72/43 L 96 10/28/21 12:45 81 13 70/39 L 94 10/28/21 12:38 83 16 65/34 L 93 10/28/21 12:30 92 H 19 65/32 L 94 10/28/21 12:26 93 H 13 68/38 L 94 10/28/21 12:22 93 H 20 94 10/28/21 12:19 97 H 21 94 10/28/21 12:18 99 H 20 68/30 L 68/30 L 94 10/28/21 11:58 36.8 C 120 H 18 94/55 L 94 Laboratory Results Laboratory Results - last 24 hr 10/28/21 10/28/21 10/28/21 12:10 12:10 12:10 WBC 9.84 RBC 3.69 L Hgb 12.3 L Hct 36.3 L MCV 98.4 MCH 33.3 MCHC 33.9 RDW Std Deviation 52.2 H RDW Coeff of Oksana 14.5 Plt Count 184 MPV 10.0 Immature Gran % (Auto) 0.4 Neut % (Auto) 71.8 Lymph % (Auto) 16.0 Lares % (Auto) 10.2 Eos % (Auto) 1.3 Baso % (Auto) 0.3 Neut # (Auto) 7.07 H Lymph # (Auto) 1.57 Lares # (Auto) 1.00 H Eos # (Auto) 0.13 Baso # (Auto) 0.03 Immature Gran # (Auto) 0.04 H PT INR Sodium 137 Potassium 4.3 Chloride 102 Carbon Dioxide 23 Anion Gap 12 H BUN 45 H Creatinine 4.29 H Est Cr Clr Drug Dosing 34.4 Est GFR ( Amer) 16.7 Est GFR (Non-Af Amer) 14.4 BUN/Creatinine Ratio 10.5 Glucose 88 Calcium 9.1 Phosphorus 4.4 Magnesium 1.9 Total Bilirubin 1.9 H Direct Bilirubin AST 16 ALT 13 Alkaline Phosphatase 73 Total Creatine Kinase Troponin I High Sens 3.2 Total Protein 7.8 Albumin 4.4 Globulin 3.4 Albumin/Globulin Ratio 1.3 Lipase 50 Ethyl Alcohol mg/dL SARS-CoV-2, RNA, NAAT 10/28/21 10/28/21 10/28/21 12:10 12:10 12:36 WBC RBC Hgb Hct MCV MCH MCHC RDW Std Deviation RDW Coeff of Oksana Plt Count MPV Immature Gran % (Auto) Neut % (Auto) Lymph % (Auto) Lares % (Auto) Eos % (Auto) Baso % (Auto) Neut # (Auto) Lymph # (Auto) Lares # (Auto) Eos # (Auto) Baso # (Auto) Immature Gran # (Auto) PT 10.8 INR 1.0 Sodium Potassium Chloride Carbon Dioxide Anion Gap BUN Creatinine Est Cr Clr Drug Dosing Est GFR ( Amer) Est GFR (Non-Af Amer) BUN/Creatinine Ratio Glucose Calcium Phosphorus Magnesium Total Bilirubin Direct Bilirubin 0.3 H AST ALT Alkaline Phosphatase Total Creatine Kinase Troponin I High Sens Total Protein Albumin Globulin Albumin/Globulin Ratio Lipase Ethyl Alcohol mg/dL < 10.0 SARS-CoV-2, RNA, NAAT 10/28/21 10/28/21 14:21 20:13 WBC RBC Hgb Hct MCV MCH MCHC RDW Std Deviation RDW Coeff of Oksana Plt Count MPV Immature Gran % (Auto) Neut % (Auto) Lymph % (Auto) Lares % (Auto) Eos % (Auto) Baso % (Auto) Neut # (Auto) Lymph # (Auto) Lares # (Auto) Eos # (Auto) Baso # (Auto) Immature Gran # (Auto) PT INR Sodium 136 Potassium 4.2 Chloride 105 Carbon Dioxide 22 Anion Gap 9 BUN 45 H Creatinine 3.49 H D Est Cr Clr Drug Dosing 42.3 Est GFR ( Amer) 21.4 Est GFR (Non-Af Amer) 18.5 BUN/Creatinine Ratio 12.9 Glucose 105 H Calcium 8.5 Phosphorus Magnesium Total Bilirubin Direct Bilirubin AST ALT Alkaline Phosphatase Total Creatine Kinase 66 Troponin I High Sens Total Protein Albumin Globulin Albumin/Globulin Ratio Lipase Ethyl Alcohol mg/dL SARS-CoV-2, RNA, NAAT POSITIVE A* Diagnostic Findings Chest X-Ray 10/28/21 12:17 XR chest 1V portable CLINICAL HISTORY: Chest Pain. COMPARISON STUDY: 08/19/2021 TECHNIQUE: 1 view of the chest FINDINGS: Single frontal view of the chest demonstrates the cardiomediastinal silhouette to be within normal limits. The lungs are clear of alveolar opacities. There is no evidence for pleural effusion. There is no evidence for vascular congestion. There is no acute osseous pathology. IMPRESSION: 1. No acute cardiopulmonary disease. ACT 112: Negative or not required by law. Electronically signed by: Masood Landrum M.D. 10/28/2021 12:[address] 10/28/21 12:19 CT head/brain wo con CLINICAL HISTORY: syncope, head strike last week, xarelto Technique: Contiguous axial CT images of the head were acquired from the base of the skull to the vertex without intravenous contrast administration. Images were viewed in brain, subdural and bone windows. Automated dose lowering techniques and/or adjustment according to patient size were utilized for this exam. Comparison: None available at the time of this dictation. Findings: The ventricles, basal cisterns, and cerebral sulci are normal. There is no acute intracranial hemorrhage or evidence of acute territorial infarction. Neither mass effect, shift of the midline structures, nor abnormal extra-axial fluid collections are shown. Imaged portions of the paranasal sinuses and mastoid air cells are clear. The orbits appear normal. There are no acute fractures of the calvaria or scalp swelling. Impression: No acute intracranial hemorrhage, no evidence of acute territorial infarction or other acute intracranial disease process. ACT 112: Negative or not required by law. Electronically signed by: Scott Celis M.D. 10/28/2021 1:05 PM Abdomen/Pelvis CT 10/28/21 13:36 CT abd pelvis wo con CLINICAL HISTORY: acute renal failure TECHNIQUE: Helical axial images of the abdomen and pelvis were obtained. Automated dose lowering techniques and/or adjustment according to patient size were utilized for this exam. This exam was performed without intravenous contra st. COMPARISON: Comparison is made to CT abdomen pelvis 08/19/2021 FINDINGS: Lower chest: No acute abnormality Liver: Unremarkable. No focal lesions are seen. Gallbladder and biliary tree: No calcified gallstones. Normal caliber wall. No intra- or extrahepatic biliary ductal dilation. Pancreas: Unremarkable, no focal lesions. Spleen: Unremarkable. Adrenals: Unremarkable. Kidneys and ureters: Unremarkable. Bladder: Limited evaluation due to underdistention. Reproductive organs: Unremarkable. Bowel: Unremarkable. Lymph nodes Retroperitoneal: Unremarkable. Mesenteric: Unremarkable. Pelvic: Unremarkable. Peritoneum: Normal. Vessels: Atherosclerotic calcifications are seen. Abdominal wall: Unremarkable. Bones: Degenerative changes in the visualized spine. IMPRESSION: No acute abnormalities. In particular, no evidence of hydronephrosis or other acute renal abnormality. ACT 112: Negative or not required by law. Electronically signed by: Scott Celis M.D. 10/28/2021 2:48 PM EKG - sinus tach, no ST changes Code Status & VTE Plan Code Status full code PG Care Time/CCT Total # of Minutes Spent Total Time Spent with Patient: Total time spent is greater than 50% in coordination of care (as documented) at patient's floor/unit and/or counseling patient: Coding Level of Care Code 84334 Initial Inpt Care Lvl 3 Diagnoses Acute kidney injury N17.9 Hypotension I95.9 Syncope R55 COVID-19 virus infection U07.1 Recurrent pulmonary emboli I26.99 Recurrent deep vein thrombosis (DVT) I82.409 Chronic alcoholism F10.20 Obstructive sleep apnea G47.33 Hyperlipidemia E78.5 Hyperlipidemia type: unspecified Hypertension I10 Hypertension type: essential hypertension Morbid obesity with BMI of 50.0-59.9, adult E66.01; Z68.43 DVT prophylaxis Z29.9 (1) Hyperlipidemia Hyperlipidemia type: unspecified Qualified Code(s): E78.5 - Hyperlipidemia, unspecified (2) Hypertension Hypertension type: essential hypertension Qualified Code(s): I10 - Essential (primary) hypertension
[2021-10-28] MEDS: LACTATED RINGER'S 1,000 ML IV SCH ×2 (15:13→22:22)
[2021-10-28] MEDS ORDERED: FOLIC ACID 1 MG in SYRINGE 9.8 ML IV STA (15:59)
[2021-10-28] MEDS ORDERED: LORazepam 2 MG/1 ML VIAL IV PRN (18:15)
[2021-10-28] MEDS ORDERED: ACETAMINOPHEN 325 MG TAB PO PRN (18:15)
[2021-10-28] MEDS ORDERED: LORazepam 1 MG TAB PO PRN (18:15)
[2021-10-28] MEDS ORDERED: ONDANSETRON INJ 2 MG/ML 2 ML VIAL IV PRN (18:15)
--- NOTE | 2021-10-28 18:32 | Emergency Department Note ---
Impression & Plan Acute hypotension, Acute renal failure, COVID-19 virus infection, Recurrent syncope ED Provider Note NAME: BRADY HERRING AGE: 56 SEX: M ARRIVES VIA: Walk-In INFORMANT: Patient ED PROVIDER(S): Bayron Mcginnis MD CHIEF COMPLAINT: Dizziness PLAN: Disposition: Admit MEDICAL DECISION MAKING: The patient is a 56-year-old gentleman with a past medical history of alcohol dependence sober since admission in August of this year who presents to emergency department for evaluation of recurrent syncope/near syncope with episode today with hypotension noted on triage. He denies any fevers, chills, cough, congestion. He reports nausea at times when his dizziness occurs. The patient was admitted in August of this year for alcohol withdrawal, upper GI bleeding. The patient reports since his hospitalization he had a new blood pressure medication added. He reports he has been urinating daily. He reports he did fall 2 weeks ago where he passed out and hit his head on the ground but immediately woke up. He denies any ongoing headache or vision changes since then. He report he has discontinued his alcohol use as last admission. On arrival the patient is uncomfortable, afebrile with blood pressure 60s/40s and heart rate in the 100s. He appears clinically dry. Has no focal logic deficits. Patient was administered 1 L of normal saline and banana bag IV fluid boluses with blood pressure fluid responsive to the 90s/50s and remained stable from respiratory standpoint. EKG without overt acute ischemia. Chest x-ray is negative for acute cardiopulmonary process. WBC and platelets wnl. H/H improved/stable from prior. Chemistry without acidosis. Cr. 4.2 with BUN 45 c/w ARF. Electrolytes unremarkable. LFTs without significant abnormality. High-sensitivity troponin wnl. Lipase wnl. CT of the abdomen pelvis was performed and was negative for acute process. Findings reviewed with the patient and he was in agreement with plan for admission. Case was d/w Dr. Christianson, [facility] hospitalist who will evaluate the patient for admission. Covid-19 RNA, NAAT was positive. Triage Nursing notes reviewed and agree them. Prior medical records reviewed Vital Signs: reviewed and remarkable for hypotension and tachycardia. Differential diagnosis: Vasovagal event, dehydration, infection, hypoglycemia, electrolyte abnormalities , cardiac sources, intracerebral event, pulmonary embolism, seizure, toxicologic, neurologic, as well as other pathologies. ER treatment provided: See below. Diagnostics interpreted by me: ECG: Sinus tachycardia, 112 bpm, no ectopy, no overt ST elevation or depression, QTC 447, QRS 86 Cardiac Monitoring: An order for continuous cardiac monitoring was placed and demonstrated Sinus tachycardia, 112 bpm, no ectopy. Laboratory studies: See below Imaging studies: See below Consultation(s): Case was d/w Dr. Christianson, [facility] hospitalist who will evaluate the patient for admission. HPI: The patient is a 56-year-old gentleman with a past medical history of alcohol dependence sober since admission in August of this year who presents to emergency department for evaluation of recurrent syncope/near syncope with episode today with hypotension noted on triage. He denies any fevers, chills, cough, congestion. He reports nausea at times when his dizziness occurs. The patient was admitted in August of this year for alcohol withdrawal, upper GI bleeding. The patient reports since his hospitalization he had a new blood pressure medication added. He reports he has been urinating daily. He reports he did fall 2 weeks ago where he passed out and hit his head on the ground but immediately woke up. He denies any ongoing headache or vision changes since then. He report he has discontinued his alcohol use as last admission. ROS: See above HPI for pertinent positives & negatives. A total of 10 systems reviewed and were otherwise negative. VITALS:See Below PHYSICAL EXAMINATION: GENERAL: Awake, alert, fatigued-appearing, in no distress HENT: Normocephalic, atraumatic. Oropharynx with dry mucous membranes and otherwise unremarkable. EYES: Normal conjunctiva. Sclera non-icteric. EOMI. No nystamgus. PEARRL. NECK: Supple. No nuchal rigidity. FROM. No JVD. RESPIRATORY: Clear to auscultation. CARDIAC: Regular rate, normal rhythm. Extremities warm and well perfused. Pulses equal. ABDOMEN: Soft, non-distended. No tenderness to palpation. No rebound or guarding. No masses. RECTAL: Deferred. MUSCULOSKELETAL: Chest examination reveals no tenderness. The back is symmetrical on inspection without obvious abnormality. There is no CVA tenderness to palpation. No joint edema. LOWER EXTREMITIES: Calves are equal size bilaterally and non-tender. No edema. No discoloration. NEURO: Normal sensorium. No sensory or motor deficits noted. 5/5 strength and SILT x 4 extremities. Cerebellar function intact including [id number], alternating palms, [id number]. SKIN: No rash or jaundice noted. ED COURSE: Critical Care: I have personally spent greater than 75 minutes of critical care time in the direct management of this patient. This includes bedside care, interpretation of diagnostic studies, and testing, discussion with consultants, patient, and family members, and other required patient management activities. This 75 minutes is in excess of all separately billable procedures. Bayron Mcginnis MD Past Med/Surg History Medical History Acute duodenitis Alcohol abuse Alcohol dependence Anxiety and depression Esophagitis Hyperlipidemia Hypertension Obstructive sleep apnea Rectal bleeding Recurrent deep vein thrombosis (DVT) Recurrent pulmonary emboli Surgical History H/O knee surgery ACL left, meniscus repair right History of back surgery discectomy History of nasal surgery broken nose Family History Mother Alzheimer disease Pulmonary embolism Social History Smoking Status: Never smoker Tobacco Type: Cigarettes Second Hand Exposure: No; Do You Dip or Chew Tobacco: No; Tobacco Cessation Education Requested by Patient: No Hx Alcohol Use: Yes Alcohol type: hard liquor Alcohol Intake Frequency: 4 or More x per/Week Alcohol Intake Frequency Comment: 2 pints/day up until 2 months ago Hx Substance Use: No Preferred Language: Slovak Communication Ability: Effective Azure Architect Required: No Beliefs That Will Affect Care: None marital status: Current Living Situation: Spouse and Family Current Living Situation Comment: home in [place]- lives in apartment during week for work current occupation: Car reviews in [place] How many Children do You have: 4 Other Information That Helps Us Care for You: No (hx of blood clots, PE x2, start in legs) Feels Safe at Home: Yes Safety Concerns: Feels Safe At This Time Assistive Devices: CPAP and Glasses Allergies Allergies Allergy/AdvReac Type Severity Reaction Status Date / Time No Known Allergies Allergy Verified 10/28/21 15:18 Home Meds Home Medications Medication Instructions Recorded Confirmed atorvastatin 40 mg tablet 40 mg PO QAM 01/08/21 10/28/21 lisinopril 10 mg tablet 10 mg PO QAM 01/08/21 10/28/21 sertraline 100 mg tablet 100 mg PO QAM 01/08/21 10/28/21 gabapentin 300 mg capsule 300 mg PO TID PRN 08/19/21 10/28/21 apixaban 5 mg tablet (Eliquis) 5 mg PO BID 10/28/21 10/28/21 chlorthalidone 25 mg tablet 25 mg PO DAILY 10/28/21 10/28/21 folic acid 1 mg tablet 1 mg PO DAILY 10/28/21 10/28/21 multivitamin 1 tab PO DAILY 10/28/21 10/28/21 tamsulosin 0.4 mg capsule 0.4 mg PO DAILY 10/28/21 10/28/21 thiamine HCl (vitamin B1) 100 mg 100 mg PO DAILY 10/28/21 10/28/21 tablet (Vitamin B-1) Results & Data (ED) Vital Signs Vital Signs - 24 hr 10/28/21 11:58 10/28/21 12:18 10/28/21 12:19 Temperature 36.8 C Temperature Source Temporal Artery Scan Pulse Rate 120 H 97 H Pulse Rate [Apical] 99 H Pulse Rate from SpO2 Sensor 97 H Respiratory Rate 18 20 21 Respiratory Effort / Characteristics Non-Labored Spontaneous Respiratory Depth Normal Respiratory Pattern Regular Blood Pressure 94/55 L 68/30 L Blood Pressure [Left Arm] 68/30 L Blood Pressure Mean 68 42 Blood Pressure Mean [Left Arm] 42 Pulse Oximetry 94 94 94 Oxygen Delivery Method Room Air Room Air Sepsis Recent Fever Within 48 Hours No Sepsis New/Unexplained Change in Mental Status No Sepsis Action Taken by Nursing No Action Required 10/28/21 12:22 10/28/21 12:26 10/28/21 12:30 Temperature Temperature Source Pulse Rate 93 H 93 H 92 H Pulse Rate [Apical] Pulse Rate from SpO2 Sensor 92 H 92 H Respiratory Rate 20 13 19 Respiratory Effort / Characteristics Respiratory Depth Respiratory Pattern Blood Pressure 68/38 L 65/32 L Blood Pressure [Left Arm] Blood Pressure Mean 48 43 Blood Pressure Mean [Left Arm] Pulse Oximetry 94 94 94 Oxygen Delivery Method Room Air Sepsis Recent Fever Within 48 Hours Sepsis New/Unexplained Change in Mental Status Sepsis Action Taken by Nursing 10/28/21 12:38 10/28/21 12:45 10/28/21 13:06 Temperature Temperature Source Pulse Rate 83 81 81 Pulse Rate [Apical] Pulse Rate from SpO2 Sensor 84 81 81 Respiratory Rate 16 13 19 Respiratory Effort / Characteristics Respiratory Depth Respiratory Pattern Blood Pressure 65/34 L 70/39 L 72/43 L Blood Pressure [Left Arm] Blood Pressure Mean 44 49 52 Blood Pressure Mean [Left Arm] Pulse Oximetry 93 94 96 Oxygen Delivery Method Sepsis Recent Fever Within 48 Hours Sepsis New/Unexplained Change in Mental Status Sepsis Action Taken by Nursing 10/28/21 13:15 10/28/21 13:30 10/28/21 13:31 Temperature Temperature Source Pulse Rate 77 74 69 Pulse Rate [Apical] Pulse Rate from SpO2 Sensor 76 74 75 Respiratory Rate 11 L 16 18 Respiratory Effort / Characteristics Respiratory Depth Respiratory Pattern Blood Pressure 87/41 L 84/39 L Blood Pressure [Left Arm] Blood Pressure Mean 56 54 Blood Pressure Mean [Left Arm] Pulse Oximetry 95 95 94 Oxygen Delivery Method Sepsis Recent Fever Within 48 Hours Sepsis New/Unexplained Change in Mental Status Sepsis Action Taken by Nursing 10/28/21 13:45 10/28/21 13:46 10/28/21 14:00 Temperature Temperature Source Pulse Rate 72 72 77 Pulse Rate [Apical] Pulse Rate from SpO2 Sensor Respiratory Rate 16 17 13 Respiratory Effort / Characteristics Respiratory Depth Respiratory Pattern Blood Pressure 81/41 L 83/38 L Blood Pressure [Left Arm] Blood Pressure Mean 54 53 Blood Pressure Mean [Left Arm] Pulse Oximetry Oxygen Delivery Method Sepsis Recent Fever Within 48 Hours Sepsis New/Unexplained Change in Mental Status Sepsis Action Taken by Nursing 10/28/21 14:15 10/28/21 14:38 10/28/21 14:39 Temperature Temperature Source Pulse Rate 74 Pulse Rate [Apical] Pulse Rate from SpO2 Sensor 83 Respiratory Rate 19 Respiratory Effort / Characteristics Respiratory Depth Respiratory Pattern Blood Pressure 92/36 L 83/46 L Blood Pressure [Left Arm] Blood Pressure Mean 54 58 Blood Pressure Mean [Left Arm] Pulse Oximetry 95 Oxygen Delivery Method Sepsis Recent Fever Within 48 Hours Sepsis New/Unexplained Change in Mental Status Sepsis Action Taken by Nursing 10/28/21 14:45 10/28/21 14:53 10/28/21 15:00 Temperature Temperature Source Pulse Rate Pulse Rate [Apical] Pulse Rate from SpO2 Sensor 74 75 Respiratory Rate Respiratory Effort / Characteristics Respiratory Depth Respiratory Pattern Blood Pressure 97/44 L 97/44 L Blood Pressure [Left Arm] Blood Pressure Mean 61 61 Blood Pressure Mean [Left Arm] Pulse Oximetry 96 96 Oxygen Delivery Method Sepsis Recent Fever Within 48 Hours Sepsis New/Unexplained Change in Mental Status Sepsis Action Taken by Nursing 10/28/21 15:16 10/28/21 15:30 10/28/21 15:45 Temperature Temperature Source Pulse Rate 74 76 77 Pulse Rate [Apical] Pulse Rate from SpO2 Sensor 74 77 77 Respiratory Rate 13 17 15 Respiratory Effort / Characteristics Respiratory Depth Respiratory Pattern Blood Pressure 113/58 L 112/59 L Blood Pressure [Left Arm] Blood Pressure Mean 76 76 Blood Pressure Mean [Left Arm] Pulse Oximetry 96 98 98 Oxygen Delivery Method Sepsis Recent Fever Within 48 Hours Sepsis New/Unexplained Change in Mental Status Sepsis Action Taken by Nursing Laboratory Data Attestation: I reviewed the patient's lab results. Result diagrams: 10/28/21 12:10 10/28/21 20:13 Lab Results 10/28/21 10/28/21 10/28/21 Range/Units 12:10 12:10 12:10 WBC 9.84 (4.8-10.8) K/uL RBC 3.69 L (4.7-6.1) M/uL Hgb 12.3 L (14.0-18.0) g/dL Hct 36.3 L (42-52) % MCV 98.4 (80-100) fL MCH 33.3 (25-34) pg MCHC 33.9 (32-36) g/dL RDW Std Deviation 52.2 H (36.4-46.3) fL RDW Coeff of Oksana 14.5 (11.5-14.5) % Plt Count 184 (130-400) K/uL MPV 10.0 (7.4-10.4) fL Immature Gran % (Auto) 0.4 % Neut % (Auto) 71.8 % Lymph % (Auto) 16.0 % Kimball % (Auto) 10.2 % Eos % (Auto) 1.3 % Baso % (Auto) 0.3 % Neut # (Auto) 7.07 H (1.4-6.5) K/uL Lymph # (Auto) 1.57 (1.2-3.4) K/uL Kimball # (Auto) 1.00 H (0.11-0.59) K/uL Eos # (Auto) 0.13 (0-0.5) K/uL Baso # (Auto) 0.03 (0-0.2) K/uL Immature Gran # (Auto) 0.04 H (0.00-0.02) K/uL PT (9.0-12.0) Seconds INR (0.9-1.1) Sodium 137 (136-145) mmol/L Potassium 4.3 (3.5-5.1) mmol/L Chloride 102 (98-107) mmol/L Carbon Dioxide 23 (21-32) mmol/L Anion Gap 12 H (3-11) BUN 45 H (6-23) mg/dl Creatinine 4.29 H (0.6-1.4) mg/dl Est Cr Clr Drug Dosing 34.4 ml/min Est GFR ( Amer) 16.7 ml/min Est GFR (Non-Af Amer) 14.4 ml/min BUN/Creatinine Ratio 10.5 (10-20) Glucose 88 (70-99(Fasting)) mg/dl Calcium 9.1 (8.5-10.1) mg/dl Phosphorus 4.4 (2.5-4.9) mg/dl Magnesium 1.9 (1.7-2.4) mg/dl Total Bilirubin 1.9 H (0.2-1.0) mg/dl Direct Bilirubin (0-0.2) mg/dl AST 16 (13-39) U/L ALT 13 (7-52) U/L Alkaline Phosphatase 73 (34-104) U/L Troponin I High Sens 3.2 (0-20) pg/ml Total Protein 7.8 (6.0-8.3) gm/dl Albumin 4.4 (3.4-5.0) gm/dl Globulin 3.4 (2.5-4.0) gm/dl Albumin/Globulin Ratio 1.3 (0.9-2) Lipase 50 (11-82) U/L Ethyl Alcohol mg/dL (<10.0) mg/dl SARS-CoV-2, RNA, NAAT (NEGATIVE) 10/28/21 10/28/21 10/28/21 Range/Units 12:10 12:10 12:36 WBC (4.8-10.8) K/uL RBC (4.7-6.1) M/uL Hgb (14.0-18.0) g/dL Hct (42-52) % MCV (80-100) fL MCH (25-34) pg MCHC (32-36) g/dL RDW Std Deviation (36.4-46.3) fL RDW Coeff of Oksana (11.5-14.5) % Plt Count (130-400) K/uL MPV (7.4-10.4) fL Immature Gran % (Auto) % Neut % (Auto) % Lymph % (Auto) % Kimball % (Auto) % Eos % (Auto) % Baso % (Auto) % Neut # (Auto) (1.4-6.5) K/uL Lymph # (Auto) (1.2-3.4) K/uL Kimball # (Auto) (0.11-0.59) K/uL Eos # (Auto) (0-0.5) K/uL Baso # (Auto) (0-0.2) K/uL Immature Gran # (Auto) (0.00-0.02) K/uL PT 10.8 (9.0-12.0) Seconds INR 1.0 (0.9-1.1) Sodium (136-145) mmol/L Potassium (3.5-5.1) mmol/L Chloride (98-107) mmol/L Carbon Dioxide (21-32) mmol/L Anion Gap (3-11) BUN (6-23) mg/dl Creatinine (0.6-1.4) mg/dl Est Cr Clr Drug Dosing ml/min Est GFR ( Amer) ml/min Est GFR (Non-Af Amer) ml/min BUN/Creatinine Ratio (10-20) Glucose (70-99(Fasting)) mg/dl Calcium (8.5-10.1) mg/dl Phosphorus (2.5-4.9) mg/dl Magnesium (1.7-2.4) mg/dl Total Bilirubin (0.2-1.0) mg/dl Direct Bilirubin 0.3 H (0-0.2) mg/dl AST (13-39) U/L ALT (7-52) U/L Alkaline Phosphatase (34-104) U/L Troponin I High Sens (0-20) pg/ml Total Protein (6.0-8.3) gm/dl Albumin (3.4-5.0) gm/dl Globulin (2.5-4.0) gm/dl Albumin/Globulin Ratio (0.9-2) Lipase (11-82) U/L Ethyl Alcohol mg/dL < 10.0 (<10.0) mg/dl SARS-CoV-2, RNA, NAAT (NEGATIVE) 10/28/21 Range/Units 14:21 WBC (4.8-10.8) K/uL RBC (4.7-6.1) M/uL Hgb (14.0-18.0) g/dL Hct (42-52) % MCV (80-100) fL MCH (25-34) pg MCHC (32-36) g/dL RDW Std Deviation (36.4-46.3) fL RDW Coeff of Oksana (11.5-14.5) % Plt Count (130-400) K/uL MPV (7.4-10.4) fL Immature Gran % (Auto) % Neut % (Auto) % Lymph % (Auto) % Kimball % (Auto) % Eos % (Auto) % Baso % (Auto) % Neut # (Auto) (1.4-6.5) K/uL Lymph # (Auto) (1.2-3.4) K/uL Kimball # (Auto) (0.11-0.59) K/uL Eos # (Auto) (0-0.5) K/uL Baso # (Auto) (0-0.2) K/uL Immature Gran # (Auto) (0.00-0.02) K/uL PT (9.0-12.0) Seconds INR (0.9-1.1) Sodium (136-145) mmol/L Potassium (3.5-5.1) mmol/L Chloride (98-107) mmol/L Carbon Dioxide (21-32) mmol/L Anion Gap (3-11) BUN (6-23) mg/dl Creatinine (0.6-1.4) mg/dl Est Cr Clr Drug Dosing ml/min Est GFR ( Amer) ml/min Est GFR (Non-Af Amer) ml/min BUN/Creatinine Ratio (10-20) Glucose (70-99(Fasting)) mg/dl Calcium (8.5-10.1) mg/dl Phosphorus (2.5-4.9) mg/dl Magnesium (1.7-2.4) mg/dl Total Bilirubin (0.2-1.0) mg/dl Direct Bilirubin (0-0.2) mg/dl AST (13-39) U/L ALT (7-52) U/L Alkaline Phosphatase (34-104) U/L Troponin I High Sens (0-20) pg/ml Total Protein (6.0-8.3) gm/dl Albumin (3.4-5.0) gm/dl Globulin (2.5-4.0) gm/dl Albumin/Globulin Ratio (0.9-2) Lipase (11-82) U/L Ethyl Alcohol mg/dL (<10.0) mg/dl SARS-CoV-2, RNA, NAAT POSITIVE A* (NEGATIVE) Administered Medications Apixaban (Apixaban 5 Mg Tablet) 5 mg PO BID COLLEEN Stop: 11/27/21 20:59 Last Admin: 10/28/21 21:18 Dose: 5 mg Documented by: [id number] Lactated Ringer's (Lr) 1,000 mls @ 125 mls/hr IV .Q8H COLLEEN Stop: 11/27/21 14:29 Last Admin: 10/28/21 22:22 Dose: 125 mls/hr Documented by: [id number] Infusion: 10/28/21 22:21 Dose: 0 mls/hr Documented by: [id number] Admin: 10/28/21 15:13 Dose: 125 mls/hr Documented by: [id number] Discontinued Medications Multivitamins 10 ml/ Thiamine HCl 100 mg/ Folic Acid 1 mg/Sodium Chloride 1,011.2 mls @ 1,011.2 mls/hr IV .Q1H ONE Stop: 10/28/21 13:17 Last Infusion: 10/28/21 14:10 Dose: 0 mls/hr Documented by: [id number] Admin: 10/28/21 13:05 Dose: 1,011.2 mls/hr Documented by: [id number] Sodium Chloride (Nss 1000ml) 1,000 mls @ 999 mls/hr IV .Q1H1M ONE Stop: 10/28/21 13:18 Last Infusion: 10/28/21 13:46 Dose: 0 mls/hr Documented by: [id number] Admin: 10/28/21 12:27 Dose: 999 mls/hr Documented by: [id number] Thiamine HCl 200 mg/ Sodium (Chloride) 52 mls @ 208 mls/hr IV NOW STA Stop: 10/28/21 13:37 Last Admin: 10/28/21 14:28 Dose: Not Given Documented by: [id number] Lactated Ringer's (Lr) 500 mls @ 999 mls/hr IV .Q31M ONE Stop: 10/28/21 14:59 Last Infusion: 10/28/21 16:16 Dose: 0 mls/hr Documented by: [id number] Admin: 10/28/21 15:13 Dose: 999 mls/hr Documented by: [id number] Imaging Data Radiologist's Impression: Chest X-Ray 10/28/21 12:17 XR chest 1V portable CLINICAL HISTORY: Chest Pain. COMPARISON STUDY: 08/19/2021 TECHNIQUE: 1 view of the chest FINDINGS: Single frontal view of the chest demonstrates the cardiomediastinal silhouette to be within normal limits. The lungs are clear of alveolar opacities. There is no evidence for pleural effusion. There is no evidence for vascular congestion. There is no acute osseous pathology. IMPRESSION: 1. No acute cardiopulmonary disease. ACT 112: Negative or not required by law. Electronically signed by: Masood Landrum M.D. 10/28/2021 12:[address] 10/28/21 12:19 CT head/brain wo con CLINICAL HISTORY: syncope, head strike last week, xarelto Technique: Contiguous axial CT images of the head were acquired from the base of the skull to the vertex without intravenous contrast administration. Images were viewed in brain, subdural and bone windows. Automated dose lowering techniques and/or adjustment according to patient size were utilized for this exam. Comparison: None available at the time of this dictation. Findings: The ventricles, basal cisterns, and cerebral sulci are normal. There is no acute intracranial hemorrhage or evidence of acute territorial infarction. Neither mass effect, shift of the midline structures, nor abnormal extra-axial fluid collections are shown. Imaged portions of the paranasal sinuses and mastoid air cells are clear. The orbits appear normal. There are no acute fractures of the calvaria or scalp swelling. Impression: No acute intracranial hemorrhage, no evidence of acute territorial infarction or other acute intracranial disease process. ACT 112: Negative or not required by law. Electronically signed by: Scott Celis M.D. 10/28/2021 1:05 PM Abdomen/Pelvis CT 10/28/21 13:36 CT abd pelvis wo con CLINICAL HISTORY: acute renal failure TECHNIQUE: Helical axial images of the abdomen and pelvis were obtained. Automated dose lowering techniques and/or adjustment according to patient size were utilized for this exam. This exam was performed without intravenous contrast. COMPARISON: Comparison is made to CT abdomen pelvis 08/19/2021 FINDINGS: Lower chest: No acute abnormality Liver: Unremarkable. No focal lesions are seen. Gallbladder and biliary tree: No calcified gallstones. Normal caliber wall. No intra- or extrahepatic biliary ductal dilation. Pancreas: Unremarkable, no focal lesions. Spleen: Unremarkable. Adrenals: Unremarkable. Kidneys and ureters: Unremarkable. Bladder: Limited evaluation due to underdistention. Reproductive organs: Unremarkable. Bowel: Unremarkable. Lymph nodes Retroperitoneal: Unremarkable. Mesenteric: Unremarkable. Pelvic: Unremarkable. Peritoneum: Normal. Vessels: Atherosclerotic calcifications are seen. Abdominal wall: Unremarkable. Bones: Degenerative changes in the visualized spine. IMPRESSION: No acute abnormalities. In particular, no evidence of hydronephrosis or other acute renal abnormality. ACT 112: Negative or not required by law. Electronically signed by: Scott Celis M.D. 10/28/2021 2:48 PM Discharge Plan Visit Data Chief Complaint: Hypotension Stated Complaint: DIZZY, FAINTED 2X SINCE LAST EDGARD, BP 85/52, ED Provider: Bayron Mcginnis Discharge Problem: Acute hypotension, Acute renal failure, COVID-19 virus infection, Recurrent syncope Patient Disposition: Admitted As Inpatient Discharge Instructions Interventions: ED Discharge Assessment Last Done: 10/28/21 18:03 Discharge Problem: Acute renal failure Qualifiers: Acute renal failure type: unspecified Qualified Code(s): N17.9 - Acute kidney failure, unspecified
[2021-10-28 20:41] LABS: BUN Creatinine Ratio 12.9 (10-20); Calcium 8.5 mg/dl (8.5-10.1); Creatinine Clr Calc Pharmacy 42.3 ml/min; Est GFR (African American) 21.4 ml/min; Est GFR (Non-African American) 18.5 ml/min; Potassium 4.2 mmol/L (3.5-5.1)
--- NOTE | 2021-10-28 20:58 | Communication Note ---
Date of Service: October 28, 2021 Cr 4.29, w/ 3.49 on repeat. Baseline 1.1. Spoke w/ pharmacy about JV and if need to dose adjust the IV thiamine and folate. No need to dose adjust. Pharmacy mentioned that patient is on Apixaban 5mg BID and typically this is not dose adjusted for reduced renal function, but bleeding risk is increased some. Per chart hx, patient has recurrent PE and dvt. I am not dose adjusting at this time. Follow clinically. Consider risks/benefits of anticoagulating vs bleeding risk. Patient already has fall precautions ordered.
[2021-10-28] MEDS: APIXABAN 5 MG TABLET PO SCH (21:18)
[2021-10-29 03:32] LABS: Appearance Urine Clear (Clear); Bacteria Urine Automated Negative (Negative); Bilirubin Urine Negative (Negative); Blood Urine Negative (Negative); Color Urine Yellow; Glucose Urine UA Negative (Negative); Ketones Urine Negative (Negative); Leukocyte Esterase Urine Negative (Negative); Nitrite Urine Negative (Negative); Protein Urine Trace (Negative); RBC Urine Automated 0-4 /hpf (0-4); Specific Gravity Urine 1.011 (1.000-1.030); Urobilinogen Urine Negative (Negative)
[2021-10-29 03:52] LABS: Creatinine Urine Random 104.5 mg/dl
--- NOTE | 2021-10-29 05:58 | Electrocardiogram Report ---
Test Reason : Blood Pressure : / mmHG Vent. Rate : 112 BPM Atrial Rate : 112 BPM P-R Int : 134 ms QRS Dur : 086 ms QT Int : 328 ms P-R-T Axes : 059 -02 040 degrees QTc Int : 447 ms Sinus tachycardia Otherwise normal ECG When compared with ECG of 19-AUG-2021 13:10, No significant change Confirmed by Anil Aguilar ([id number]) on 10/29/2021 5:58:16 AM Referred By: REFERRED SELF Confirmed By:Anil Aguilar
[2021-10-29] MEDS: LACTATED RINGER'S 1,000 ML IV SCH ×2 (06:03→14:03)
[2021-10-29 07:05] LABS: Albumin Level 3.7 gm/dl (3.4-5.0); BUN Creatinine Ratio 16.5 (10-20); Bilirubin Direct 0.3 mg/dl (0-0.2); Bilirubin,Total 1.4 mg/dl (0.2-1.0); Calcium 8.3 mg/dl (8.5-10.1); Creatinine Clr Calc Pharmacy 59.8 ml/min; Est GFR (African American) 32.2 ml/min; Est GFR (Non-African American) 27.8 ml/min; Potassium 4.5 mmol/L (3.5-5.1); Total Protein 6.3 gm/dl (6.0-8.3)
--- NOTE | 2021-10-29 07:11 | Ultrasound Report ---
US renal/blad retro comp HISTORY: 56 years-old Male acute renal failure acute renal failure COMPARISON: CT abdomen and pelvis of same day TECHNIQUE: Multiple real-time sonographic images of the kidneys and urinary bladder were obtained ass essing grayscale appearance and color flow FINDINGS: The right kidney measures 11.5 cm in length. The left kidney measures 11.7 cm in length. No renal kelsey culi, hydronephrosis or suspicious mass lesion. Cortical medullary differentiation is preserved bilat erally. Unremarkable urinary bladder. Ureteral jets are not identified. Incidental note is made of hepatomega ly with hepatic steatosis. IMPRESSION: Unremarkable renal ultrasound. ACT 112: Negative or not required by law. The above report was generated using voice recognition software. It may contain grammatical, syntax o r spelling errors. Electronically signed by: Pierce Livingston M.D. 10/29/2021 7:09 AM
[2021-10-29] MEDS: THIAMINE HCL 200 MG in SODIUM CHLORIDE 0.9% 50 ML IV SCH (08:55)
[2021-10-29] MEDS: ATORVASTATIN 40 MG TAB PO SCH (08:56)
[2021-10-29] MEDS: SERTRALINE HCL 100 MG TABLET PO SCH (08:56)
[2021-10-29] MEDS: APIXABAN 5 MG TABLET PO SCH ×2 (08:56→22:01)
[2021-10-29] MEDS: FOLIC ACID 1 MG in SYRINGE 9.8 ML IV SCH (08:57)
[2021-10-29] MEDS: MULTIVITAMIN TAB PO SCH (08:57)
--- NOTE | 2021-10-29 15:15 | Hospitalist Progress Note ---
Date of Service October 29, 2021 Assessment & Plan (1) Acute kidney injury: Plan: Pre-renal due to severe hypotension. Likely with resulting ATN (FeNa is just over 1 c/w such). Multiple BP meds including LAVERN inhibitor and diuretic use along with questionable poor liquid intake likely contributed to hypotension. I cannot rule out intrinsic renal dysfunction from COVID infection itself. No evidence of obstruction on CT or renal u/s. Ua negative for casts or signs of UTI. Cont Isotonic fluids but lower rate to 75cc/hr. BMP am. Will obtain records from his [facility] stay from September 2021 - reports he had JV then as well. (2) Hypotension: Plan: Iatrogenic from multiple BP meds? Poor liquid intake? Sepsis from COVID infection? Other? Suspect combo of factors. Either way hypotension resolved. Cont to hold anti-hypertensive medication. (3) Syncope: Plan: Neurocardiogenic in etiology (low BP). see above. Strongly consider echo to check LV/RV function in light of multiple PE events in the past. Tele thus far negative. (4) COVID-19 virus infection: Plan: Cont airborne precautions. Severe fatigue resolved. I do suspect that COVID contributed to his presentation. Although he had COVID-19 infection in early July 2021 he had negative COVID testing in August (and Delta variant was dominant in early July). Also had negative COVID testing in September at [facility] (presumed). Thus, I suspect he has reinfection with Omicron variant. Supportive care. No indication for Remdesivir, dexamethasone, etc. (5) Recurrent pulmonary emboli: Plan: Multiple VTE episodes over the last 20 years. This, coupled with his mother's history of multiple VTE episodes, is concerning for a genetic/hereditary hypercoagulable state. He reports never having a genetic work-up. O2 sats cont to be stable. Continue Eliquis for now, but I am concerned that this may not be the best option for him given his weight, etc. Coumadin would likely be best. I discussed this with him extensively today. He reports he had a similar discussion with his doctors back home in [place]. He will think about his options. (6) Recurrent deep vein thrombosis (DVT): Plan: see above (7) Chronic alcoholism: Plan: No daily etoh intake in several months. [id number]-[id number] placed on etoh withdrawal precautions. No signs/symptoms of withdrawal fortunately. Cont Thiamine, folate, MVI supplementation. Telemetry. (8) Obstructive sleep apnea: Plan: Continue CPAP 14cm H20. (9) Hyperlipidemia: Plan: Continue statin. (10) Hypertension: Plan: HOLD ALL anti-hypertensives. (11) Morbid obesity with BMI of 50.0-59.9, adult: Plan: BMI 54 (12) DVT prophylaxis: Plan: Eliquis Plan: I updated the pt's by phone this evening once again. PT, OT evals tomorrow. Admission and Anticipated Discharge Date Admission Date: October 28, 2021 Subjective tele overnight wnl feels MUCH better today retrospectively he now realizes he had been confused over the last day or two runny nose resolved did have some diarrhea earlier this am eating is normal drinking fluids no cough or dyspnea or congestion Review of Systems Review of Systems: gen - no fevers or chills HENT - no loss of taste or smell; no sore throat or nasal congestion cv - no chest pain pulm - no cough or dyspnea musculo - no myalgias or arthralgias skin - no rash Physical Exam Physical Exam: gen - morbidly obese, NAD, looks better today HENT - MMM, no lesions neck - supple, no masses heart - RRR, s1 s2, no murmur lungs - CTA b/l abd - soft NT ND BS+ ext - no edema, pulses 2+ b/l skin - no rash neuro - strength 5/5 x 4 exts Results & Data Results & Data ([facility]) Vital Signs (Past 12 Hours) Vital Signs Temp Pulse Pulse Resp BP Pulse Ox 10/29/21 12:00 36.7 C 73 18 118/69 95 10/29/21 08:09 36.5 C 68 18 102/54 L 97 10/29/21 08:00 36.8 C 96 H 16 110/74 96 10/29/21 03:36 68 Laboratory Results Laboratory Results - last 24 hr 10/28/21 10/28/21 10/29/21 14:21 20:13 03:15 Sodium 136 Potassium 4.2 Chloride 105 Carbon Dioxide 22 Anion Gap 9 BUN 45 H Creatinine 3.49 H D Est Cr Clr Drug Dosing 42.3 Est GFR ( Amer) 21.4 Est GFR (Non-Af Amer) 18.5 BUN/Creatinine Ratio 12.9 Glucose 105 H Calcium 8.5 Total Bilirubin Direct Bilirubin AST ALT Alkaline Phosphatase Total Creatine Kinase 66 Total Protein Albumin Urine Color Yellow Urine Appearance Clear Urine pH 5.0 Ur Specific [place] 1.011 Urine Protein Trace H Urine Glucose (UA) Negative Urine Ketones Negative Urine Blood Negative Urine Nitrite Negative Urine Bilirubin Negative Urine Urobilinogen Negative Ur Leukocyte Esterase Negative Urine WBC (Auto) 1-5 Urine RBC (Auto) 0-4 U Hyaline Cast (Auto) 1-5 U Epithel Cells (Auto) 5-10 H Urine Bacteria (Auto) Negative Ur Random Creatinine Ur Random Sodium SARS-CoV-2, RNA, NAAT POSITIVE A* 10/29/21 10/29/21 03:15 06:17 Sodium 137 Potassium 4.5 Chloride 107 Carbon Dioxide 23 Anion Gap 7 BUN 41 H Creatinine 2.49 H D Est Cr Clr Drug Dosing 59.8 Est GFR ( Amer) 32.2 Est GFR (Non-Af Amer) 27.8 BUN/Creatinine Ratio 16.5 Glucose 104 H Calcium 8.3 L Total Bilirubin 1.4 H Direct Bilirubin 0.3 H AST 15 ALT 10 Alkaline Phosphatase 62 Total Creatine Kinase Total Protein 6.3 Albumin 3.7 Urine Color Urine Appearance Urine pH Ur Specific [place] Urine Protein Urine Glucose (UA) Urine Ketones Urine Blood Urine Nitrite Urine Bilirubin Urine Urobilinogen Ur Leukocyte Esterase Urine WBC (Auto) Urine RBC (Auto) U Hyaline Cast (Auto) U Epithel Cells (Auto) Urine Bacteria (Auto) Ur Random Creatinine 104.5 Ur Random Sodium 74 SARS-CoV-2, RNA, NAAT PG Care Time/CCT Total # of Minutes Spent Total Time Spent with Patient: Total time spent is greater than 50% in coordination of care (as documented) at patient's floor/unit and/or counseling patient: Coding Level of Care Code 19301 Subseq Hosp Care Lvl 3 Diagnoses Acute kidney injury N17.9 Hypotension I95.9 Syncope R55 COVID-19 virus infection U07.1 Recurrent pulmonary emboli I26.99 Recurrent deep vein thrombosis (DVT) I82.409 Chronic alcoholism F10.20 Obstructive sleep apnea G47.33 Hyperlipidemia E78.5 Hyperlipidemia type: unspecified Hypertension I10 Hypertension type: essential hypertension Morbid obesity with BMI of 50.0-59.9, adult E66.01; Z68.43 DVT prophylaxis Z29.9 (1) Hyperlipidemia Hyperlipidemia type: unspecified Qualified Code(s): E78.5 - Hyperlipidemia, unspecified (2) Hypertension Hypertension type: essential hypertension Qualified Code(s): I10 - Essential (primary) hypertension
[2021-10-29] MEDS ORDERED: MELATONIN 3 MG TAB PO PRN (19:40)
[2021-10-30] MEDS: LACTATED RINGER'S 1,000 ML IV SCH (00:15)
[2021-10-30 07:31] LABS: BUN Creatinine Ratio 19.9 (10-20); Calcium 8.9 mg/dl (8.5-10.1); Creatinine Clr Calc Pharmacy 97.5 ml/min; Est GFR (Non-African American) 50.9 ml/min; Potassium 4.4 mmol/L (3.5-5.1)
[2021-10-30 07:43] LABS: Thyroid Stimulating Hormone 5.48 uIu/ml (0.300-4.500)
[2021-10-30] MEDS: ATORVASTATIN 40 MG TAB PO SCH (07:44)
[2021-10-30] MEDS: MULTIVITAMIN TAB PO SCH (07:44)
[2021-10-30] MEDS: APIXABAN 5 MG TABLET PO SCH (07:44)
[2021-10-30] MEDS: THIAMINE HCL 200 MG in SODIUM CHLORIDE 0.9% 50 ML IV SCH (07:45)
[2021-10-30] MEDS: SERTRALINE HCL 100 MG TABLET PO SCH (07:45)
[2021-10-30] MEDS: FOLIC ACID 1 MG in SYRINGE 9.8 ML IV SCH (07:45)
[2021-10-30] MEDS ORDERED: CYANOCOBALAMIN (B-12) 500 MCG TABLET PO SCH (09:00)
[2021-10-30 10:19] LABS: T4 Free Thyroxine 0.93 ng/dl (0.61-1.60)
--- NOTE | 2021-10-30 14:49 | Discharge Summary ---
Date of Service date of admission - October 28, 2021 date of discharge - October 30, 2021 Admission HPI Per Admitting Provider 56yo male with h/o recurrent VTE currently on Eliquis (20 years ago following back surgery, then 8-9 years ago, 05/2021, then in 07/2021), HTN, alcohol abuse - presents with multiple episodes of syncope or near-syncope over the last week. About 1 week ago he was sitting in his chair in his apartment when he passed out for a few seconds after standing up. He then had another syncopal episode yesterday after standing up from his chair in his apartment after unloading some groceries. During this 2nd episode he only had loss of consciousness for a few seconds. He continued to feel dizzy/lightheaded and "exhausted." Went to bed at 5pm last night and awoke after 6am this am. He reports having runny nose x 1 week, and his 20yo son is sick with URI/cough back home in [place]. Patient managed to go to work this am and while attending a meeting again had near-syncope. His co-workers brought him to the hospital after his SBP at work was in the 80s. Upon arrival at [facility] his SBP was in the 70s. During my assessment his SBP was now >100 s/p multiple fluid boluses. COVID testing is positive. Had previous 2-shot vaccine series as well. Patient states he was hospitalized at [facility] in September for acute renal failure. He does not recall what his creatinine was. Finally, after having had PEs/DVT in 05/2021 he was placed on Eliquis. After 1-2 months of using Eliquis he was changed to Xarelto because of insurance issues. He then developed recurrent VTE in July 2021 while on Xarelto? In response to such he was taken off the Xarelto and placed back on Eliquis. He confirms he is taking it twice daily. Later in the evening I spoke with the patient's by phone. She reports that he had COVID-19 infection in early July 2021 (she remembers the dates because she tested positive about 5 days after him). Additionally, she states he has had dizziness "for months." Principal Diagnosis 1. COVID-19 Infection 2. Syncope 3. Hypotension 4. Acute Renal Failure Discharge Exam gen - morbidly obese, NAD, looks well today HENT - MMM, no lesions neck - supple, no masses heart - RRR, s1 s2, no murmur lungs - CTA b/l abd - soft NT ND BS+ ext - no edema, pulses 2+ b/l skin - no rash neuro - strength 5/5 x 4 exts Discharge Data Allergies Allergy/AdvReac Type Severity Reaction Status Date / Time No Known Allergies Allergy Verified 10/28/21 15:18 Consultations Physical Therapy Ordered Studies Chest X-Ray 10/28/21 12:17 XR chest 1V portable CLINICAL HISTORY: Chest Pain. COMPARISON STUDY: 08/19/2021 TECHNIQUE: 1 view of the chest FINDINGS: Single frontal view of the chest demonstrates the cardiomediastinal silhouette to be within normal limits. The lungs are clear of alveolar opacities. There is no evidence for pleural effusion. There is no evidence for vascular congestion. There is no acute osseous pathology. IMPRESSION: 1. No acute cardiopulmonary disease. ACT 112: Negative or not required by law. Electronically signed by: Masood Landrum M.D. 10/28/2021 12:[address] 10/28/21 12:19 CT head/brain wo con CLINICAL HISTORY: syncope, head strike last week, xarelto Technique: Contiguous axial CT images of the head were acquired from the base of the skull to the vertex without intravenous contrast administration. Images were viewed in brain, subdural and bone windows. Automated dose lowering techniques and/or adjustment according to patient size were utilized for this exam. Comparison: None available at the time of this dictation. Findings: The ventricles, basal cisterns, and cerebral sulci are normal. There is no acute intracranial hemorrhage or evidence of acute territorial infarction. Neither mass effect, shift of the midline structures, nor abnormal extra-axial fluid c ollections are shown. Imaged portions of the paranasal sinuses and mastoid air cells are clear. The orbits appear normal. There are no acute fractures of the calvaria or scalp swelling. Impression: No acute intracranial hemorrhage, no evidence of acute territorial infarction or other acute intracranial disease process. ACT 112: Negative or not required by law. Electronically signed by: Scott Celis M.D. 10/28/2021 1:05 PM Abdomen/Pelvis CT 10/28/21 13:36 CT abd pelvis wo con CLINICAL HISTORY: acute renal failure TECHNIQUE: Helical axial images of the abdomen and pelvis were obtained. Automated dose lowering techniques and/or adjustment according to patient size were utilized for this exam. This exam was performed without intravenous co ntrast. COMPARISON: Comparison is made to CT abdomen pelvis 08/19/2021 FINDINGS: Lower chest: No acute abnormality Liver: Unremarkable. No focal lesions are seen. Gallbladder and biliary tree: No calcified gallstones. Normal caliber wall. No intra- or extrahepatic biliary ductal dilation. Pancreas: Unremarkable, no focal lesions. Spleen: Unremarkable. Adrenals: Unremarkable. Kidneys and ureters: Unremarkable. Bladder: Limited evaluation due to underdistention. Reproductive organs: Unremarkable. Bowel: Unremarkable. Lymph nodes Retroperitoneal: Unremarkable. Mesenteric: Unremarkable. Pelvic: Unremarkable. Peritoneum: Normal. Vessels: Atherosclerotic calcifications are seen. Abdominal wall: Unremarkable. Bones: Degenerative changes in the visualized spine. IMPRESSION: No acute abnormalities. In particular, no evidence of hydronephrosis or other acute renal abnormality. ACT 112: Negative or not required by law. Electronically signed by: Scott Celis M.D. 10/28/2021 2:48 PM Renal Ultrasound 10/28/21 17:26 US renal/blad retro comp HISTORY: 56 years-old Male acute renal failure acute renal failure COMPARISON: CT abdomen and pelvis of same day TECHNIQUE: Multiple real-time sonographic images of the kidneys and urinary bladder were obtained assessing grayscale appearance and color flow FINDINGS: The right kidney measures 11.5 cm in length. The left kidney measures 11.7 cm in length. No renal calculi, hydronephrosis or suspicious mass lesion. Cortical medullary differentiation is preserved bilaterally. Unremarkable urinary bladder. Ureteral jets are not identified. Incidental note is made of hepatomegaly with hepatic steatosis. IMPRESSION: Unremarkable renal ultrasound. ACT 112: Negative or not required by law. The above report was generated using voice recognition software. It may contain grammatical, syntax or spelling errors. Electronically signed by: Pierce Livingston M.D. 10/29/2021 7:09 AM Hospital Course (1) COVID-19 virus infection: I suspect that his COVID-19 infection was a major contributor to his severe fatigue, dehydration, syncope/pre-syncope, and general unwellness in the 24 hours prior to admission. At time of admission he was placed in airborne precautions and given IV fluids along with supportive care. Fortunately he never had respiratory symptoms nor hypoxia. There was never any indication for Remdesivir, dexamethasone, etc. He symptomatically improved by the time he was discharged. Although he had COVID-19 infection in early July 2021 (which was probably Delta variant) he had negative COVID testing in August 2021 while hospitalized at [facility]. He also tested negative for COVID in September at [facility]. Thus, I suspect he had reinfection with Omicron variant during this visit. He was asked to continue isolation upon discharge for at least another 2-3 days. (2) Acute kidney injury: Severe hypotension and dehydration likely led to ATN (FeNa was just over 1 consistent with ATN). Multiple BP meds including LAVERN inhibitor and diuretic use along with poor liquid intake likely contributed to hypotension. I cannot rule out intrinsic renal dysfunction from the COVID infection itself. No evidence of obstruction on CT or renal u/s. Ua negative for casts or signs of UTI. Peak creatinine was 4.29. Discharge creatinine was 1.51. Creatinine improved with IV fluids. Apparently the patient had had JV during his September 2021 hospital stay at [facility] as well. At discharge he was advised to STOP - * chlorthalidone * lisinopril * tamsulosin He will need a repeat BMP at time of follow-up with his PCP in [place]. (3) Hypotension: Suspect multiple etiologies including iatrogenic from multiple BP meds, po or liquid intake, COVID infection, etc. Presenting systolic BP was in the 60s, quickly improving in the emergency room at [facility] with several IV fluid boluses. All anti-hypertensives were HELD at time of admission and also at time of discharge. In fact, following copious hydration, his systolic BPs were 100-125 only. He will need close follow-up for his history of hypertension. He was asked to check his BPs at home and show these values to his PCP at time of follow-up. (4) Syncope: Neurocardiogenic in etiology (hypotension). See above. He had no further pre-syncope or syncope during his hospitalization following IV hydration. Telemetry was normal during the visit. Strongly consider an echocardiogram upon follow-up in [place] to check LV & RV function. If he continues with hypotension and/or syncope consider checking cortisol level. (5) Recurrent pulmonary emboli: Multiple VTE episodes over the last 20 years. This, coupled with his mother's history of multiple VTE episodes, is concerning for a genetic/hereditary hypercoagulable state. He reports never having a genetic work-up to his knowledge. O2 sats were stable during his entire visit. He never had respiratory symptoms. Work-up for new VTE was not pursued. Continue Eliquis for now, but I am concerned that this may not be the best option for him given his morbid obesity. Eliquis and DOACs in general have not been well-studied in patients with extreme morbid obesity. Coumadin may be safest anticoagulant. I discussed this with him extensively prior to discharge. He reports he had a similar discussion with his doctors back home in [place]. He will think about his options and will discuss this issue further with his PCP. (6) Recurrent deep vein thrombosis (DVT): see above (7) Chronic alcoholism: No reported NO daily etoh intake in several months. Ocku-ccz-tzhm placed on etoh withdrawal precautions while here. No signs/symptoms of withdrawal fortunately. Placed on Thiamine, folate, MVI supplementation. (8) Obstructive sleep apnea: Continue CPAP 14cm H20. (9) Hyperlipidemia: Continue statin. (10) Hypertension: HOLD ALL anti-hypertensives at time of hospital discharge. See discussion above. (11) Morbid obesity with BMI of 50.0-59.9, adult: BMI 54 (12) DVT prophylaxis: Eliquis 5mg BID (13) Anemia: Hemoglobin at time of admission was 12.3. Vitamin B12 level = 232. He was advised to take OTC vitamin B12 1000mcg daily for 6-12 months. He will also take folic acid 1mg daily x 30 days. Finally, although this typically does not lead to anemia, he was given thiamine supplementation 200mg BID for 30 days at discharge. He should f/u with his PCP for the anemia. He should have iron studies in the outpatient setting as well. Patient was seen by physical therapy and was cleared for home prior to discharge. Total Time Total Time Spent Total Time Spent (In Minutes): 50 Discharge Plan Discharge Items Patient Disposition: Home - Self-Care Reason For Visit: ACUTE RENAL FAILURE; COVID+ Discharge Diagnosis: 1. COVID-19 infection - resolving/resolved 2. Acute renal failure (rise in creatinine) - just about fully resolved; discharge creatinine 1.5 3. Low vitamin B12 level (232) with resulting mild anemia (hemoglobin of 12) 4. History of recurrent blood clots 5. Syncope (passing out spells) - due to severely low blood pressure - resolved Activity: As commented below Activity Comment: Gradually increase your activities over the next 5-7 days Sexual Activity: Wait until after follow-up appointment Exercise/Sports: Wait until after follow-up appointment Non-emergency contact: Primary Care Provider Call non-emergency contact if: you have any medication questions and your symptoms worsen Follow-up/Referrals: Jesus Arevalo MD [Primary Care Provider] - (5-7 days) Diet: Carb Consistent or DM2 Fluids: 2000ml (8 cups) Addtl Attending Provider Instructions: Mr oHdge, Martín were hospitalized at [facility] after having several spells of passing out briefly. On the day of admission you had a near-fainting spell at work. Upon arrival to [facility] your blood pressures were very low with the systolic blood pressure (top number) in the 70s. You improved with copious amounts of IV fluid and holding all blood pressure medication. Your COVID-19 test was positive at time of admission. I do believe that you had symptomatic COVID infection. The severe fatigue, loose stool, runny nose, and dehydration were likely due to COVID-19. The low blood pressure was likely due to several factors including multiple medications for your blood pressure (lisinopril, chlorthalidone, and tamsulosin), COVID infection, dehydration, etc. Your blood pressures have been normal for nearly 36 hours. With low blood pressure the kidneys often get sick which is, in fact, what happened to you. Your creatinine (kidney function level) was 4.29 at time of admission. On 10/30/21 it improved to 1.5. PLEASE HAVE YOUR KIDNEY FUNCTION RECHECKED WITHIN THE NEXT WEEK BY YOUR FAMILY DOCTOR IN [place]. Recommendations - 1. Please STOP your lisinopril, chlorthalidone, and tamsulosin. If you were taking losartan or ANY OTHER BLOOD PRESSURE medication please hold those as well. 2. Check your blood pressure twice daily. Write these numbers in a notebook and show them to your family doctor next week. 3. Your vitamin B12 level is low. This may be contributing to your anemia. Please take mics-imk-sjxyeyq vitamin B12 1000mcg daily for 1 year. 4. Take folic acid 1mg daily x 30 days. 5. Take thiamine (b1) 200mg twice daily x 30 days. Folic acid & thiamine sent to [facility] for you. 6. Please discuss the following with your family doctor - * genetic/hereditary testing for your recurrent DVT/PE blood clots * whether to change from Eliquis to Coumadin due to your weight * options and ways to help you maintain sobriety / stop alcohol use 7. It is not certain which day was the first day of your COVID illness. I suspect you had COVID for 2-3 days prior to arrival at [facility]. Thus, you are about 4-5 days into your illness. Please follow isolation / return to work guidelines from your employer. If you continue to feel well, have no symptoms, have no fever, and 5+ days have elapsed from the suspected start of your illness you do not need to isolate any further at home. With that said please plan to take it easy over the next 4-5 days as you recover. 8. When you return to [place] please stop your vehicle and stretch your legs every hour if possible while on the road. Follow-up - see your family doctor in [place] within 5-7 days; again you will need repeat blood work at that time (CBC, BMP, and iron studies as well) Return to [facility] or any hospital if - * you are having shortness of breath or chest pains * you have dizziness, lightheadedness, or are feeling faint * you have recurrent episodes of passing out * any other concerns It was our pleasure to care for you at [facility]! Continue to feel better, Dr Christianson Pending Studies at Discharge: No Stand-Alone Forms: My [facility] [employer], Smoking Cessation Medications and DC Order Prescriptions: New cyanocobalamin (vitamin B-12) 1,000 mcg capsule 1,000 mcg PO DAILY Qty: 90 RF: 3 Continued multivitamin Tablet 1 tab PO DAILY RF: 0 Eliquis 5 mg tablet 5 mg PO BID RF: 0 folic acid 1 mg tablet 1 mg PO DAILY Qty: 30 RF: 0 atorvastatin 40 mg tablet 40 mg PO QAM RF: 0 sertraline 100 mg tablet 100 mg PO QAM RF: 0 gabapentin 300 mg capsule 300 mg PO TID PRN (Reason: Pain) RF: 0 Changed thiamine HCl (vitamin B1) [Vitamin B-1] 100 mg Tablet 200 mg PO BID 30 Days Qty: 120 RF: 0 Discontinued chlorthalidone 25 mg tablet 25 mg PO DAILY RF: 0 tamsulosin 0.4 mg capsule 0.4 mg PO DAILY RF: 0 lisinopril 10 mg tablet 10 mg PO QAM RF: 0 Discharge Orders: Discharge Order (Routine); Ordered 10/30/21 Ordered By: Santi Brewster/Other Patient Handouts: How COVID-19 Spreads, 2019 Novel Coronavirus, COVID 19 Prevention, COVID 19 Flu Differences Admission Data Admit Date/Time: 10/28/21 15:59 Attending Provider: Santi Christianson Admit Provider: Santi Christianson Primary Care Provider: Jesus Arevalo Other Interventions: Discharge Summary Assessment (RN) Last Done: 10/30/21 14:15 Coding Level of Care Code D/C DAY MANAGEMENT >30 MINS Diagnoses Acute kidney injury N17.9 Hypotension I95.9 Syncope R55 COVID-19 virus infection U07.1 Recurrent pulmonary emboli I26.99 Recurrent deep vein thrombosis (DVT) I82.409 Chronic alcoholism F10.20 Obstructive sleep apnea G47.33 Hyperlipidemia E78.5 Hyperlipidemia type: unspecified Hypertension I10 Hypertension type: essential hypertension Morbid obesity with BMI of 50.0-59.9, adult E66.01; Z68.43 DVT prophylaxis Z29.9 Anemia D64.9
--- NOTE | 2021-11-10 08:42 | Coding Query ---
To promote full compliance with coding requirements relating to patient care, provider participation is requested in all cases of neon tube pumper uncertainty. Please assist us with the question(s) below: Coding Question(s): The diagnosis below was documented in the H&P, and on the 10/29 Progress Note, then subsequently fell off all further documentation. Please indicate if it is still a possible diagnosis or ruled out. Physician's Response(s): Questionable/Possible SEPSIS - (the H&P and 10/29 Progress Note document, "Sepsis from COVID infection?"). ( ) Diagnosed and POA ( ) Diagnosed and not POA ( x ) Ruled out ( ) Other (please specify) MTDD
== END 2021-10-30 15:23 | disposition home or self-care (01) | DRG 177 ==
LOC: ED 11:56 → 2S 15:59

== ENCOUNTER 2021-12-23 09:07 | Inpatient (IN) ==
[2021-12-23] MEDS ORDERED: MULTI-VITAMIN INFUSION 10 ML, THIAMINE HCL 100 MG, FOLIC ACID 1 MG in SODIUM CHLORIDE 0... IV ONE (09:26)
[2021-12-23] MEDS ORDERED: SODIUM CHLORIDE 0.9% 1000ML 1,000 ML IV SCH (09:30)
[2021-12-23 09:50] LABS: Prothrombin Time 11.1 Seconds (9.0-12.0)
--- NOTE | 2021-12-23 09:51 | XRay Report ---
XR chest 1V portable CLINICAL HISTORY: cough TECHNIQUE: Single frontal radiograph of the chest was obtained. Comparison: Comparison is made to chest radiograph 10/28/2021 FINDINGS: No lines and tubes are seen. Cardiomegaly is noted. The lungs are clear. No evidence of pleural effus ion or pneumothorax. IMPRESSION: No acute chest disease. ACT 112: Negative or not required by law. Electronically signed by: Scott Celis M.D. 12/23/2021 9:50 AM
[2021-12-23 09:55] LABS: Basophils # (auto) 0.02 K/uL (0-0.2); Basophils % (auto) 0.3 %; Eosinophils # (auto) 0.11 K/uL (0-0.5); Eosinophils % (auto) 1.6 %; Hematocrit (blood only) 37.3 % (42-52); Hemoglobin 12.6 g/dL (14.0-18.0); Immature Granulocytes # (auto) 0.04 K/uL (0.00-0.02); Immature Granulocytes % (auto) 0.6 %; Lymphocytes # (auto) 1.31 K/uL (1.2-3.4); Mean Corpuscular Hemoglobin 32.6 pg (25-34); Mean Corpuscular Hgb Conc 33.8 g/dL (32-36); Mean Corpuscular Volume 96.6 fL (80-100); Mean Platelet Volume 9.7 fL (7.4-10.4); Monocytes # (auto) 0.43 K/uL (0.11-0.59); Monocytes % (auto) 6.3 %; Neutrophils # (auto) 4.97 K/uL (1.4-6.5); Neutrophils % (auto) 72.2 %; Platelet Count 169 K/uL (130-400); RDW Coefficient of Variation 13.8 % (11.5-14.5); RDW Standard Deviation 49.1 fL (36.4-46.3); Red Blood Count 3.86 M/uL (4.7-6.1); White Blood Count 6.88 K/uL (4.8-10.8)
[2021-12-23 10:06] LABS: Albumin Globulin Ratio 1.3 (0.9-2); Albumin Level 3.9 gm/dl (3.4-5.0); BUN Creatinine Ratio 28.3 (10-20); Bilirubin,Total 1.4 mg/dl (0.2-1.0); Calcium 7.9 mg/dl (8.5-10.1); Creatinine Clr Calc Pharmacy 59.1 ml/min; Est GFR (African American) 31.9 ml/min; Est GFR (Non-African American) 27.5 ml/min; Globulin 2.9 gm/dl (2.5-4.0); Magnesium 2.3 mg/dl (1.7-2.4); Potassium 5.1 mmol/L (3.5-5.1); Total Protein 6.8 gm/dl (6.0-8.3)
[2021-12-23 10:07] LABS: Troponin I High Sensitivity 2.3 pg/ml (0-20)
--- NOTE | 2021-12-23 10:30 | Emergency Department Note ---
History of Present Illness General Chief complaint: Weakness Time Seen by Provider: 12/23/21 09:13 Source: patient Mode of arrival: EMS Limitations: no limitations History of Present Illness Provider complaint: Fatigue Onset (ago): day(s) 4 Maximum Pain Intensity: 0 Treatments prior to arrival: none This is a 56-year-old male presents emergency department complaining of increased fatigue over the last 3 to 4 days. Patient states he has been very tired, not really moving or getting up from bed very much. He states he is trying to sip clear liquids but has had a decreased appetite. He states he has had diarrhea, and has noticed some blood. He states he has had this previously and does relate he has a history of hemorrhoids. Patient states he does have a history of alcohol abuse and drinks approximately 1/5 of whiskey a day, but has not done so in approximately 4 days. He denies any sense of tremors, shaking, or alcohol withdrawal. Patient states he has previously experienced alcohol withdrawal. Patient does take blood thinners due to a prior history of DVT. Patient denies any recent change in diet or activity, no known sick contact. Patient did perform a home COVID test which was negative. Pt seen during a time of high acuity and national emergency pandemic while wearing PPE. Home Medications Medication Instructions Recorded Confirmed Type atorvastatin 40 mg tablet 40 mg PO QAM 01/08/21 12/23/21 History sertraline 100 mg tablet 100 mg PO QAM 01/08/21 12/23/21 History gabapentin 300 mg capsule 300 mg PO TID PRN 08/19/21 12/23/21 History apixaban 5 mg tablet (Eliquis) 5 mg PO BID 10/28/21 12/23/21 History furosemide 40 mg tablet (Lasix) 40 mg PO DAILY #3 tab 11/19/21 12/23/21 Rx Allergies Allergy/AdvReac Type Severity Reaction Status Date / Time No Known Allergies Allergy Verified 12/23/21 10:57 Past Med/Surg History Medical History Acute duodenitis Acute hypotension Acute renal failure Alcohol abuse Alcohol dependence Anxiety and depression COVID-19 virus infection Esophagitis Rectal bleeding Recurrent syncope Surgical History H/O knee surgery ACL left, meniscus repair right History of back surgery discectomy History of nasal surgery broken nose Family History Mother Alzheimer disease Pulmonary embolism Social History Smoking Status: Former smoker Tobacco Type: Cigarettes Second Hand Exposure: No; Hx Alcohol Use: Yes Alcohol type: hard liquor Alcohol Intake Frequency: 4 or More x per/Week Alcohol Intake Frequency Comment: 2 pints/day up until 2 months ago Hx Substance Use: No Preferred Language: Sinhala Communication Ability: Effective Manager Acquisition Required: No Beliefs That Will Affect Care: None marital status: Current Living Situation: Spouse Current Living Situation Comment: Pt lives in [place] but works in [employer] for work current occupation: [employer] in [employer] How many Children do You have: 4 Feels Safe at Home: Yes Safety Concerns: Feels Safe At This Time Assistive Devices: None Review of Systems A total of 10 systems reviewed and were otherwise negative All systems reviewed & are unremarkable except as noted in HPI & below Physical Exam Vital Signs Vital Signs - 24 hr 12/23/21 09:18 12/23/21 09:20 12/23/21 09:23 Temperature 36.3 C L Temperature Source Oral Pulse Rate 80 84 83 Pulse Rate [Apical] Pulse Rate from SpO2 Sensor 79 84 Pulse Rhythm Regular Pulse Strength Normal Respiratory Rate 16 16 16 Respiratory Effort / Characteristics Non-Labored Spontaneous Respiratory Depth Normal Respiratory Pattern Regular Blood Pressure 98/56 L 98/56 L Blood Pressure [Left Radial Artery] Blood Pressure Mean 70 70 Blood Pressure Mean [Left Radial Artery] Blood Pressure Position Lying Pulse Oximetry 92 93 93 Oxygen Delivery Method Room Air Room Air Room Air Sepsis Recent Fever Within 48 Hours No Sepsis New/Unexplained Change in Mental Status No Sepsis Action Taken by Nursing No Action Required 12/23/21 09:30 12/23/21 09:40 12/23/21 09:50 Temperature Temperature Source Pulse Rate 80 79 78 Pulse Rate [Apical] Pulse Rate from SpO2 Sensor 80 Pulse Rhythm Pulse Strength Respiratory Rate 17 19 15 Respiratory Effort / Characteristics Respiratory Depth Respiratory Pattern Blood Pressure 108/57 L Blood Pressure [Left Radial Artery] Blood Pressure Mean 74 Blood Pressure Mean [Left Radial Artery] Blood Pressure Position Pulse Oximetry 93 Oxygen Delivery Method Room Air Room Air Room Air Sepsis Recent Fever Within 48 Hours Sepsis New/Unexplained Change in Mental Status Sepsis Action Taken by Nursing 12/23/21 10:00 12/23/21 10:01 12/23/21 10:10 Temperature Temperature Source Pulse Rate 75 74 75 Pulse Rate [Apical] Pulse Rate from SpO2 Sensor Pulse Rhythm Pulse Strength Respiratory Rate 18 16 15 Respiratory Effort / Characteristics Respiratory Depth Respiratory Pattern Blood Pressure 101/55 L Blood Pressure [Left Radial Artery] Blood Pressure Mean 70 Blood Pressure Mean [Left Radial Artery] Blood Pressure Position Pulse Oximetry Oxygen Delivery Method Room Air Room Air Room Air Sepsis Recent Fever Within 48 Hours Sepsis New/Unexplained Change in Mental Status Sepsis Action Taken by Nursing 12/23/21 10:20 12/23/21 10:30 12/23/21 10:40 Temperature Temperature Source Pulse Rate 76 71 74 Pulse Rate [Apical] Pulse Rate from SpO2 Sensor Pulse Rhythm Pulse Strength Respiratory Rate 20 Respiratory Effort / Characteristics Respiratory Depth Respiratory Pattern Blood Pressure Blood Pressure [Left Radial Artery] Blood Pressure Mean Blood Pressure Mean [Left Radial Artery] Blood Pressure Position Pulse Oximetry Oxygen Delivery Method Room Air Room Air Room Air Sepsis Recent Fever Within 48 Hours Sepsis New/Unexplained Change in Mental Status Sepsis Action Taken by Nursing 12/23/21 10:50 12/23/21 11:00 12/23/21 11:10 Temperature Temperature Source Pulse Rate 74 70 75 Pulse Rate [Apical] Pulse Rate from SpO2 Sensor Pulse Rhythm Pulse Strength Respiratory Rate 14 16 18 Respiratory Effort / Characteristics Respiratory Depth Respiratory Pattern Blood Pressure Blood Pressure [Left Radial Artery] Blood Pressure Mean Blood Pressure Mean [Left Radial Artery] Blood Pressure Position Pulse Oximetry Oxygen Delivery Method Room Air Room Air Room Air Sepsis Recent Fever Within 48 Hours Sepsis New/Unexplained Change in Mental Status Sepsis Action Taken by Nursing 12/23/21 11:20 12/23/21 12:48 Temperature Temperature Source Pulse Rate 76 Pulse Rate [Apical] 79 Pulse Rate from SpO2 Sensor 75 Pulse Rhythm Pulse Strength Respiratory Rate 17 22 Respiratory Effort / Characteristics Respiratory Depth Respiratory Pattern Blood Pressure Blood Pressure [Left Radial Artery] 101/49 L Blood Pressure Mean Blood Pressure Mean [Left Radial Artery] 66 Blood Pressure Position Pulse Oximetry 91 94 Oxygen Delivery Method Room Air Room Air Sepsis Recent Fever Within 48 Hours Sepsis New/Unexplained Change in Mental Status Sepsis Action Taken by Nursing GENERAL: alert, unwell appearing, well nourished, no distress, non-toxic, BMI>55 EYE EXAM: normal conjunctiva, PERRL and EOM's grossly intact OROPHARYNX: no exudate, no erythema, lips, buccal mucosa, and tongue normal and mucous membranes are moist NECK: supple, no nuchal rigidity, no adenopathy, non-tender LUNGS: Clear to auscultation. Normal chest wall mechanics, no w/r/r HEART: no murmurs, S1 normal and S2 normal ABDOMEN: abdomen soft, non-tender, normo-active bowel sounds, no masses, no rebound or guarding. BACK: Back is symmetrical on inspection and there is no deformity, no midline tenderness, no CVA tenderness. SKIN: no rashes and no bruising UPPER EXTREMITIES: upper extremities are grossly normal. FROM, nml pulses b/l. LOWER EXTREMITIES: trace b/l pitting edema. FROM, nml pulses b/l. NEURO EXAM: Normal sensorium, cranial nerves II-XII grossly intact, normal speech, no gross weakness of arms, no gross weakness of legs. Gross sensation intact. Course Administered Medications Chlordiazepoxide HCl (Chlordiazepoxide Hcl 25 Mg Cap) 25 mg PO Q8H [facility] Stop: 12/26/21 11:01 Last Admin: 12/25/21 18:23 Dose: 25 mg Documented by: [id number] Cyanocobalamin (Cyanocobalamin 1000 Mcg/Ml Vial) 1,000 mcg IM QAM [facility] Stop: 12/29/21 09:01 Last Admin: 12/25/21 10:24 Dose: Not Given Documented by: [id number] Gabapentin (Gabapentin 300 Mg Cap) 300 mg PO TID [facility] Stop: 01/22/22 16:59 Last Admin: 12/25/21 13:04 Dose: Not Given Documented by: [id number] Admin: 12/25/21 06:56 Dose: Not Given Documented by: [id number] Admin: 12/24/21 21:09 Dose: 300 mg Documented by: [id number] Admin: 12/24/21 14:33 Dose: 300 mg Documented by: [id number] Admin: 12/24/21 08:15 Dose: 300 mg Documented by: [id number] Admin: 12/23/21 21:06 Dose: 300 mg Documented by: [id number] Admin: 12/23/21 17:16 Dose: 300 mg Documented by: [id number] Lactated Ringer's (Lr) 1,000 mls @ 125 mls/hr IV .Q8H [facility] Stop: 01/22/22 15:47 Last Admin: 12/25/21 10:24 Dose: 125 mls/hr Documented by: [id number] Infusion: 12/25/21 10:23 Dose: 125 mls/hr Documented by: [id number] Admin: 12/25/21 06:28 Dose: Not Given Documented by: [id number] Admin: 12/25/21 01:51 Dose: 125 mls/hr Documented by: [id number] Infusion: 12/25/21 01:51 Dose: 125 mls/hr Documented by: [id number] Admin: 12/24/21 18:24 Dose: 125 mls/hr Documented by: [id number] Infusion: 12/24/21 18:21 Dose: 125 mls/hr Documented by: [id number] Infusion: 12/24/21 14:02 Dose: 125 mls/hr Documented by: [id number] Admin: 12/24/21 11:24 Dose: 175 mls/hr Documented by: [id number] Infusion: 12/24/21 09:58 Dose: 175 mls/hr Documented by: [id number] Admin: 12/24/21 04:15 Dose: 175 mls/hr Documented by: [id number] Infusion: 12/24/21 04:15 Dose: 175 mls/hr Documented by: [id number] Infusion: 12/24/21 00:57 Dose: 175 mls/hr Documented by: [id number] Infusion: 12/24/21 00:42 Dose: 0 mls/hr Documented by: [id number] Admin: 12/23/21 22:24 Dose: 175 mls/hr Documented by: [id number] Infusion: 12/23/21 22:22 Dose: 175 mls/hr Documented by: [id number] Admin: 12/23/21 16:39 Dose: 175 mls/hr Documented by: [id number] Folic Acid 1 mg/ Syringe 10 mls @ 5 mls/min IV QAM [facility] Stop: 01/22/22 16:59 Last Admin: 12/25/21 07:53 Dose: 5 mls/min Documented by: [id number] Admin: 12/24/21 08:19 Dose: 5 mls/min Documented by: [id number] Admin: 12/23/21 17:18 Dose: 5 mls/min Documented by: [id number] Pantoprazole Sodium 40 mg/ (Syringe) 10 mls @ 5 mls/min IV BID [facility] Stop: 01/22/22 20:59 Last Admin: 12/25/21 07:52 Dose: 5 mls/min Documented by: [id number] Admin: 12/24/21 21:09 Dose: 5 mls/min Documented by: [id number] Admin: 12/24/21 08:19 Dose: 5 mls/min Documented by: [id number] Admin: 12/23/21 21:06 Dose: 5 mls/min Documented by: [id number] Thiamine HCl 200 mg/ Sodium (Chloride) 52 mls @ 208 mls/hr IV BID [facility] Stop: 01/24/22 10:29 Last Infusion: 12/25/21 11:01 Dose: 0 mls/hr Documented by: [id number] Admin: 12/25/21 10:38 Dose: 208 mls/hr Documented by: [id number] Sertraline HCl (Sertraline Hcl 50 Mg Tablet) 150 mg PO QAM [facility] Stop: 01/24/22 09:59 Last Admin: 12/25/21 10:39 Dose: Not Given Documented by: [id number] Discontinued Medications Chlordiazepoxide HCl (Chlordiazepoxide Hcl 25 Mg Cap) 50 mg PO Q6H [facility] Stop: 12/24/21 11:01 Last Admin: 12/24/21 11:24 Dose: 50 mg Documented by: [id number] Admin: 12/24/21 04:19 Dose: 50 mg Documented by: [id number] Admin: 12/23/21 22:27 Dose: 50 mg Documented by: [id number] Admin: 12/23/21 17:16 Dose: 50 mg Documented by: [id number] Chlordiazepoxide HCl (Chlordiazepoxide Hcl 25 Mg Cap) 50 mg PO Q8H [facility] Stop: 12/25/21 11:01 Last Admin: 12/25/21 10:39 Dose: Not Given Documented by: [id number] Admin: 12/25/21 02:29 Dose: 50 mg Documented by: [id number] Admin: 12/24/21 18:24 Dose: 50 mg Documented by: [id number] Fentanyl Citrate (Fentanyl Citrate 100 Mcg/2 Ml Vial) Confirm Administered Dose 100 mcg .ROUTE .STK-MED ONE Stop: 12/25/21 14:18 Last Admin: 12/25/21 15:57 Dose: Not Given Documented by: [id number] Sodium Chloride (Nss 1000ml) 1,000 mls @ 125 mls/hr IV .Q8H [facility] Stop: 01/22/22 09:29 Last Infusion: 12/23/21 16:09 Dose: 0 mls/hr Documented by: [id number] Admin: 12/23/21 09:47 Dose: 125 mls/hr Documented by: [id number] Multivitamins 10 ml/ Thiamine HCl 100 mg/ Folic Acid 1 mg/Sodium Chloride 1,011.2 mls @ 250 mls/hr IV .Q4H3M ONE Stop: 12/23/21 13:28 Last Infusion: 12/23/21 15:50 Dose: 0 mls/hr Documented by: [id number] Admin: 12/23/21 11:18 Dose: 250 mls/hr Documented by: [id number] Pantoprazole Sodium 40 mg/ (Syringe) 10 mls @ 5 mls/min IV NOW ONE Stop: 12/23/21 10:46 Last Admin: 12/23/21 12:01 Dose: 5 mls/min Documented by: [id number] Thiamine HCl 500 mg/ Sodium (Chloride) 55 mls @ 208 mls/hr IV Q8H [facility] Stop: 12/24/21 09:16 Last Infusion: 12/24/21 09:10 Dose: 0 mls/hr Documented by: [id number] Admin: 12/24/21 08:19 Dose: 208 mls/hr Documented by: [id number] Infusion: 12/24/21 00:57 Dose: 0 mls/hr Documented by: [id number] Admin: 12/24/21 00:39 Dose: 208 mls/hr Documented by: [id number] Infusion: 12/23/21 17:37 Dose: 0 mls/hr Documented by: [id number] Admin: 12/23/21 17:21 Dose: 208 mls/hr Documented by: [id number] Ketamine HCl (Ketamine 50 Mg/5 Ml Syringe) Confirm Administered Dose 50 mg .ROUTE .STK-MED ONE Stop: 12/25/21 14:53 Last Admin: 12/25/21 15:58 Dose: Not Given Documented by: [id number] Lidocaine HCl (Lidocaine 2% 2 Ml Vial/Amp(20mg/Ml)) Confirm Administered Dose 4 ml INFIL .STK-MED ONE Stop: 12/25/21 14:18 Last Admin: 12/25/21 15:57 Dose: Not Given Documented by: [id number] Lorazepam (Lorazepam 2 Mg/1 Ml Vial) 1 mg IV NOW STA; Protocol Stop: 12/23/21 13:57 Last Admin: 12/23/21 14:12 Dose: 1 mg Documented by: [id number] Lorazepam (Lorazepam 2 Mg/1 Ml Vial) Confirm Administered Dose 2 mg .ROUTE .STK- MED ONE Stop: 12/23/21 14:09 Last Admin: 12/23/21 14:12 Dose: Not Given Documented by: [id number] Propofol (Propofol Iv Emulsion 10 Mg/Ml 20 Ml Vial) Confirm Administered Dose 200 mg IV .STK-MED ONE Stop: 12/25/21 14:18 Last Admin: 12/25/21 15:58 Dose: Not Given Documented by: [id number] Propofol (Propofol Iv Emulsion 10 Mg/Ml 20 Ml Vial) Confirm Administered Dose 200 mg IV .STK-MED ONE Stop: 12/25/21 15:08 Last Admin: 12/25/21 15:58 Dose: Not Given Documented by: [id number] Medical Decision Making Differential Diagnosis Differential Diagnosis includes but is not limited to dehydration, stroke, anemia, hypoglycemia, hyponatremia, hypernatremia, urinary tract infection, pneumonia, bronchitis, sepsis, gastroenteritis, additional abdominal pathology, metabolic abnormalities and infections. Medical Records Attestation: I reviewed the patient's medical records. Home Medications Current Medication List: was personally reviewed by me Laboratory Data Attestation: I reviewed the patient's lab results. Result diagrams: 12/25/21 06:35 12/25/21 06:35 Lab Results 12/23/21 12/23/21 12/23/21 Range/Units 09:25 09:28 09:28 WBC 6.88 (4.8-10.8) K/uL RBC 3.86 L (4.7-6.1) M/uL Hgb 12.6 L (14.0-18.0) g/dL Hct 37.3 L (42-52) % MCV 96.6 (80-100) fL MCH 32.6 (25-34) pg MCHC 33.8 (32-36) g/dL RDW Std Deviation 49.1 H (36.4-46.3) fL RDW Coeff of Oksana 13.8 (11.5-14.5) % Plt Count 169 (130-400) K/uL MPV 9.7 (7.4-10.4) fL Immature Gran % (Auto) 0.6 % Neut % (Auto) 72.2 % Lymph % (Auto) 19.0 % [place] % (Auto) 6.3 % Eos % (Auto) 1.6 % Baso % (Auto) 0.3 % Neut # (Auto) 4.97 (1.4-6.5) K/uL Lymph # (Auto) 1.31 (1.2-3.4) K/uL [place] # (Auto) 0.43 (0.11-0.59) K/uL Eos # (Auto) 0.11 (0-0.5) K/uL Baso # (Auto) 0.02 (0-0.2) K/uL Immature Gran # (Auto) 0.04 H (0.00-0.02) K/uL PT 11.1 (9.0-12.0) Seconds INR 1.0 (0.9-1.1) Sodium (136-145) mmol/L Potassium (3.5-5.1) mmol/L Chloride (98-107) mmol/L Carbon Dioxide (21-32) mmol/L Anion Gap (3-11) BUN (6-23) mg/dl Creatinine (0.6-1.4) mg/dl Est Cr Clr Drug Dosing ml/min Est GFR ( Amer) ml/min Est GFR (Non-Af Amer) ml/min BUN/Creatinine Ratio (10-20) Glucose (70-99(Fasting)) mg/dl Calcium (8.5-10.1) mg/dl Magnesium (1.7-2.4) mg/dl Total Bilirubin (0.2-1.0) mg/dl AST (13-39) U/L ALT (7-52) U/L Alkaline Phosphatase (34-104) U/L Troponin I High Sens (0-20) pg/ml Total Protein (6.0-8.3) gm/dl Albumin (3.4-5.0) gm/dl Globulin (2.5-4.0) gm/dl Albumin/Globulin Ratio (0.9-2) Lipase (11-82) U/L TSH (0.300-4.500) uIu/ml Urine Color Urine Appearance (Clear) Urine pH (4.5-7.5) Ur Specific Premium (1.000-1.030) Urine Protein (Negative) Urine Glucose (UA) (Negative) Urine Ketones (Negative) Urine Blood (Negative) Urine Nitrite (Negative) Urine Bilirubin (Negative) Urine Urobilinogen (Negative) Ur Leukocyte Esterase (Negative) Urine WBC (Auto) (0-5) /hpf Urine RBC (Auto) (0-4) /hpf U Hyaline Cast (Auto) (0-5) /lpf U Epithel Cells (Auto) (0-5) /lpf Urine Bacteria (Auto) (Negative) Ethyl Alcohol mg/dL (<10.0) mg/dl SARS-CoV-2 (PCR) NEGATIVE (Negative) Influenza Type A (PCR) Negative (Neg) Influenza Type B (PCR) Negative (Neg) RSV (RT-PCR) Negative (Neg) 12/23/21 12/23/21 12/23/21 Range/Units 09:28 09:28 09:28 WBC (4.8-10.8) K/uL RBC (4.7-6.1) M/uL Hgb (14.0-18.0) g/dL Hct (42-52) % MCV (80-100) fL MCH (25-34) pg MCHC (32-36) g/dL RDW Std Deviation (36.4-46.3) fL RDW Coeff of Oksana (11.5-14.5) % Plt Count (130-400) K/uL MPV (7.4-10.4) fL Immature Gran % (Auto) % Neut % (Auto) % Lymph % (Auto) % [place] % (Auto) % Eos % (Auto) % Baso % (Auto) % Neut # (Auto) (1.4-6.5) K/uL Lymph # (Auto) (1.2-3.4) K/uL [place] # (Auto) (0.11-0.59) K/uL Eos # (Auto) (0-0.5) K/uL Baso # (Auto) (0-0.2) K/uL Immature Gran # (Auto) (0.00-0.02) K/uL PT (9.0-12.0) Seconds INR (0.9-1.1) Sodium 138 (136-145) mmol/L Potassium 5.1 (3.5-5.1) mmol/L Chloride 106 (98-107) mmol/L Carbon Dioxide 23 (21-32) mmol/L Anion Gap 9 (3-11) BUN 71 H (6-23) mg/dl Creatinine 2.51 H (0.6-1.4) mg/dl Est Cr Clr Drug Dosing 59.1 ml/min Est GFR ( Amer) 31.9 ml/min Est GFR (Non-Af Amer) 27.5 ml/min BUN/Creatinine Ratio 28.3 H (10-20) Glucose 132 H (70-99(Fasting)) mg/dl Calcium 7.9 L (8.5-10.1) mg/dl Magnesium 2.3 (1.7-2.4) mg/dl Total Bilirubin 1.4 H (0.2-1.0) mg/dl AST 32 (13-39) U/L ALT 15 (7-52) U/L Alkaline Phosphatase 72 (34-104) U/L Troponin I High Sens 2.3 (0-20) pg/ml Total Protein 6.8 (6.0-8.3) gm/dl Albumin 3.9 (3.4-5.0) gm/dl Globulin 2.9 (2.5-4.0) gm/dl Albumin/Globulin Ratio 1.3 (0.9-2) Lipase 42 (11-82) U/L TSH 2.994 (0.300-4.500) uIu/ml Urine Color Urine Appearance (Clear) Urine pH (4.5-7.5) Ur Specific Premium (1.000-1.030) Urine Protein (Negative) Urine Glucose (UA) (Negative) Urine Ketones (Negative) Urine Blood (Negative) Urine Nitrite (Negative) Urine Bilirubin (Negative) Urine Urobilinogen (Negative) Ur Leukocyte Esterase (Negative) Urine WBC (Auto) (0-5) /hpf Urine RBC (Auto) (0-4) /hpf U Hyaline Cast (Auto) (0-5) /lpf U Epithel Cells (Auto) (0-5) /lpf Urine Bacteria (Auto) (Negative) Ethyl Alcohol mg/dL 269.6 H (<10.0) mg/dl SARS-CoV-2 (PCR) (Negative) Influenza Type A (PCR) (Neg) Influenza Type B (PCR) (Neg) RSV (RT-PCR) (Neg) 12/23/21 Range/Units 11:21 WBC (4.8-10.8) K/uL RBC (4.7-6.1) M/uL Hgb (14.0-18.0) g/dL Hct (42-52) % MCV (80-100) fL MCH (25-34) pg MCHC (32-36) g/dL RDW Std Deviation (36.4-46.3) fL RDW Coeff of Oksana (11.5-14.5) % Plt Count (130-400) K/uL MPV (7.4-10.4) fL Immature Gran % (Auto) % Neut % (Auto) % Lymph % (Auto) % [place] % (Auto) % Eos % (Auto) % Baso % (Auto) % Neut # (Auto) (1.4-6.5) K/uL Lymph # (Auto) (1.2-3.4) K/uL [place] # (Auto) (0.11-0.59) K/uL Eos # (Auto) (0-0.5) K/uL Baso # (Auto) (0-0.2) K/uL Immature Gran # (Auto) (0.00-0.02) K/uL PT (9.0-12.0) Seconds INR (0.9-1.1) Sodium (136-145) mmol/L Potassium (3.5-5.1) mmol/L Chloride (98-107) mmol/L Carbon Dioxide (21-32) mmol/L Anion Gap (3-11) BUN (6-23) mg/dl Creatinine (0.6-1.4) mg/dl Est Cr Clr Drug Dosing ml/min Est GFR ( Amer) ml/min Est GFR (Non-Af Amer) ml/min BUN/Creatinine Ratio (10-20) Glucose (70-99(Fasting)) mg/dl Calcium (8.5-10.1) mg/dl Magnesium (1.7-2.4) mg/dl Total Bilirubin (0.2-1.0) mg/dl AST (13-39) U/L ALT (7-52) U/L Alkaline Phosphatase (34-104) U/L Troponin I High Sens (0-20) pg/ml Total Protein (6.0-8.3) gm/dl Albumin (3.4-5.0) gm/dl Globulin (2.5-4.0) gm/dl Albumin/Globulin Ratio (0.9-2) Lipase (11-82) U/L TSH (0.300-4.500) uIu/ml Urine Color Yellow Urine Appearance Clear (Clear) Urine pH 5.0 (4.5-7.5) Ur Specific Premium 1.018 (1.000-1.030) Urine Protein Trace H (Negative) Urine Glucose (UA) Trace H (Negative) Urine Ketones Negative (Negative) Urine Blood Negative (Negative) Urine Nitrite Negative (Negative) Urine Bilirubin Negative (Negative) Urine Urobilinogen Negative (Negative) Ur Leukocyte Esterase Negative (Negative) Urine WBC (Auto) 1-5 (0-5) /hpf Urine RBC (Auto) 0-4 (0-4) /hpf U Hyaline Cast (Auto) 1-5 (0-5) /lpf U Epithel Cells (Auto) 0-5 (0-5) /lpf Urine Bacteria (Auto) Negative (Negative) Ethyl Alcohol mg/dL (<10.0) mg/dl SARS-CoV-2 (PCR) (Negative) Influenza Type A (PCR) (Neg) Influenza Type B (PCR) (Neg) RSV (RT-PCR) (Neg) Imaging Data Radiologist's Impression: Chest X-Ray 12/23/21 09:26 XR chest 1V portable CLINICAL HISTORY: cough TECHNIQUE: Single frontal radiograph of the chest was obtained. Comparison: Comparison is made to chest radiograph 10/28/2021 FINDINGS: No lines and tubes are seen. Cardiomegaly is noted. The lungs are clear. No evidence of pleural effusion or pneumothorax. IMPRESSION: No acute chest disease. ACT 112: Negative or not required by law. Electronically signed by: Scott Celis M.D. 12/23/2021 9:50 AM ECG Data Attestation: I personally reviewed and interpreted this ECG as follows: Indication: + weakness Rate (beats per minute): 81 Rhythm: + normal sinus ECG Intervals/blocks: + Normal QRS and + Normal QT ECG [place]: + Normal ECG ST segments: + Nonspecific ST abnormalities MDM Narrative An order was placed for continuous cardiac monitoring. The monitor shows a rate of _92_ with _normal sinus_ rhythm. This is a 56-year-old male presents emergency department due to generalized weakness and fatigue over the last 4 days. Patient does have a history of alcohol abuse although initially denied any ongoing use of alcohol during his symptoms. Patient found to have acute intoxication although was not clinically intoxicated. Patient was hemodynamically stable throughout. Labs drawn and sent. Patient started on IV fluids as well as an IV banana bag. Patient did appear clinically dehydrated. Patient did report an episode of GI bleed at home, a bowel movement here was green and heme-negative at bedside. Patient had no abdominal pain, no vomiting. Patient is at risk given prior history of GI bleed and ongoing alcohol abuse. He was noted to be thrombocytopenic although this appears chronic. Patient was noted to have acute kidney injury compared to baseline creatinine. I suspect this is due to dehydration and ongoing alcohol abuse. COVID swab negative. Case discussed with hospitalist for additional evaluation and management. No evidence of evolving alcohol withdrawal symptoms while present emergency room. Patient was given a dose of Protonix as a precaution. Impression & Plan Generalized weakness, Alcohol abuse, Dehydration, Alcohol intoxication, JV (acute kidney injury) Discharge Plan Visit Data Chief Complaint: Weakness ED Provider: Taryn Fernandez Discharge Problem: Generalized weakness, Alcohol abuse, Dehydration, Alcohol intoxication, JV (acute kidney injury) Patient Disposition: Admitted As Inpatient Discharge Instructions Interventions: ED Discharge Assessment Last Done: 12/23/21 15:34 Discharge Problem: Alcohol intoxication Qualifiers: Complication of substance-induced condition: uncomplicated Qualified Code(s): F10.920 - Alcohol use, unspecified with intoxication, uncomplicated
[2021-12-23] MEDS ORDERED: PANTOprazole 40 MG in SYRINGE 0 ML IV ONE (10:45)
[2021-12-23 11:36] LABS: Appearance Urine Clear (Clear); Bacteria Urine Automated Negative (Negative); Bilirubin Urine Negative (Negative); Blood Urine Negative (Negative); Color Urine Yellow; Epithelial Cell Urine Auto 0-5 /lpf (0-5); Glucose Urine UA Trace (Negative); Ketones Urine Negative (Negative); Leukocyte Esterase Urine Negative (Negative); Nitrite Urine Negative (Negative); Protein Urine Trace (Negative); RBC Urine Automated 0-4 /hpf (0-4); Specific Gravity Urine 1.018 (1.000-1.030); Urobilinogen Urine Negative (Negative)
[2021-12-23 11:54] LABS: Influenza A virus by PCR Negative (Neg); Influenza B virus by PCR Negative (Neg); RSV by PCR Negative (Neg); SARS CoV2 RNA(COVID-19) InHosp NEGATIVE (Negative)
--- NOTE | 2021-12-23 12:53 | History & Physical Report ---
Date of Service December 23, 2021 Assessment & Plan (1) GIB (gastrointestinal bleeding): Plan: - Suspected given 3-day history of dark, tarry stools, BUN 71, chronic alcohol abuse and on Eliquis. Hospitalized for such in August, EGD at that time with esophagitis, gastritis. NO varices. Colonoscopy with small, nonbleeding external hemorrhoids. - GI consulted, appreciate their recommendations. - For now, will keep NPO, protonix 40 mg IV BID, maintenance IVF. - Hgb 12.6, but suspect this is hemoconcentrated due to reports of very poor po intake for several days. H/H this afternoon --> 12.1/35.8. Next check on AM labs. - Hold Eliquis. - Hemoccult pending, also testing for c-diff, obtaining blood cultures given reported history of frequent loose BMs, chills, and multiple hospitalizations over the past several months, however have low suspicion given WBC wnl, no ov erwhelming evidence pointing towards infection. (2) Acute renal failure: Plan: - Cr 2.51, baseline ~ 1.1. - Suspect prerenal due to poor p.o. intake/dehydration, also may be on BP meds which are contributing. Patient cannot recall all blood pressure medications he is currently on, but recently had lisinopril filled. Will hold this, as well as Lasix which is on medication list, however patient denies taking this. - LRs at 175 cc/hr. - Renally dose medications as able, avoid nephrotoxins. - Follow renal function on daily labs. (3) Anemia: Plan: - Hgb 12.6, which appears to be baseline however suspect this is hemoconcentrated in setting of dehydration, is likely lower given 3 day history of frequent, dark tarry stools and mary red blood with some of these. - Repeat Hgb this afternoon 12.1. (4) Alcohol abuse: Plan: - Patient with history of chronic alcoholism, previously drinking 1/5 of whiskey a day. Multiple withdrawal episodes in the past. - EtOH level today 269.6. Reports drinking ~8 ounce glass of [place] whiskey last evening, otherwise last drink was 4 days ago, 1/5 handle alcohol. - Has previously withdrawn from alcohol, has done well with Librium and bell pentin taper, required minimal amounts of Ativan. Will continue home gabapentin 300 mg 3 times daily, with Librium taper. - AWSS protocol. - 1 mg Ativan now, as patient has developed shakiness while in ED. - S/p banana bag in ED. - Will require thiamine and folate repletion, thiamine 500 mg IV q8h on day 1, then taper down to 200, then 100 daily. (5) Hypertension: Plan: - Previously on Lisinopril, Lasix, chlorthalidone. Patient is unsure what he takes currently. PCP is in [place] we he resides (works in [facility]). Lisinopril most recently filled on 12/09. - Regardless, will be holding BP meds/diuretic in setting of JV and soft BPs. (6) History of venous thromboembolism: Plan: - On Eliquis twice daily, will have to hold in setting of suspected UGI bleed. - Has been taking Eliquis as prescribed, no reason to suspect VTE today--no chest pain/palpitations, pain with respirations, SOB, unilateral leg swelling (baseline trace L > R), or calf pain. - It was discussed with patient last admission that given his BMI, Coumadin may be a better option for him. (7) Obstructive sleep apnea: Plan: - Continue CPAP at night. (8) Anxiety and depression: Plan: - Continue sertraline. Plan: - Admit to PCU. - SCDs for DVT ppx, holding Eliquis for now. - Full Code. History of Present Illness Chief Complaint: fatigue x 3 days Primary Care Provider: Jesus Arevalo MD Mr. 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 Since Wednesday, he has been bedbound due to extreme fatigue that has seem to come on suddenly. He has been sleeping the majority of his days and has not had much motivation or energy to do anything. He is felt lightheaded and dizzy at times. He has also lost much of his appetite, has not been eating anything and primarily drinking Gatorade for hydration and has developed frequent dark, tarry, loose bowel movements that occasionally have moderate amounts of bright red blood in them sometimes. It is difficult for him to determine which symptoms develop first, however the fatigue, loss of appetite, dizziness/lightheadedness, and dark BMs all started within the same 3-day period. Has been trying to abstain from alcohol, however did drink 1/5 of a handle of liquor between and Wednesday, abstained over the weekend but reports last night he had about 8 ounces of [place] [employer] to try to feel better, as he has withdrawn from alcohol before and wondered if his symptoms were related to this. He has been told he has history of hemorrhoids, but denies painful bowel movements and frequent blood in stool. He is on Eliquis twice daily due to development of blood clots on Xarelto. He has been taking this regularly, however has not had it today yet. He has had some chills over the past day, but denies fever, chest pain, palpitations, shortness of breath, cough, abdominal pain, nausea, vomiting. Hospitalized in August for GI beed, at that time EGD showed esophagitis and gastritis, colonoscopy with small, nonbleeding external hemorrhoids. In ED, borderline hypotensive 101/55, vital signs otherwise within normal limits and stable. Labs significant for HGb 12.6, BUN 71, creatinine 2.51, calcium 7.9, T bili 1.4. EtoH 269.6. COVID/flu/RSV negative. Allergies Allergy/AdvReac Type Severity Reaction Status Date / Time No Known Allergies Allergy Verified 12/23/21 10:57 Home Medications Medication Instructions Recorded Confirmed Type atorvastatin 40 mg tablet 40 mg PO QAM 01/08/21 12/23/21 History sertraline 100 mg tablet 100 mg PO QAM 01/08/21 12/23/21 History gabapentin 300 mg capsule 300 mg PO TID PRN 08/19/21 12/23/21 History apixaban 5 mg tablet (Eliquis) 5 mg PO BID 10/28/21 12/23/21 History furosemide 40 mg tablet (Lasix) 40 mg PO DAILY #3 tab 11/19/21 12/23/21 Rx Past Med/Surg History Medical History (Updated 12/23/21 @ 14:32 by Cristiana Watson PA-C) Acute duodenitis Acute hypotension Acute renal failure Alcohol abuse Alcohol dependence Anxiety and depression COVID-19 virus infection Esophagitis Rectal bleeding Recurrent syncope Surgical History H/O knee surgery ACL left, meniscus repair right History of back surgery discectomy History of nasal surgery broken nose Family History Mother Alzheimer disease Pulmonary embolism Social History Smoking Status: Former smoker Tobacco Type: Cigarettes Second Hand Exposure: No; Hx Alcohol Use: Yes Alcohol type: hard liquor Alcohol Intake Frequency: 4 or More x per/Week Alcohol Intake Frequency Comment: 2 pints/day up until 2 months ago Hx Substance Use: No Preferred Language: Indonesian Communication Ability: Effective Co Director Required: No Beliefs That Will Affect Care: None marital status: Current Living Situation: Spouse Current Living Situation Comment: Pt lives in [place] but works in [employer] for work current occupation: construction company in [employer] How many Children do You have: 4 Feels Safe at Home: Yes Safety Concerns: Feels Safe At This Time Assistive Devices: CPAP Review of Systems Review of Systems: All systems reviewed & are unremarkable except as noted in HPI & below Physical Exam Physical Exam: General: awake, alert, no apparent distress Head: Normocephalic, atraumatic ENT: PERRL, EOMI, no pharyngeal exudate, mucous membranes moist Chest: Clear to auscultation, on room air, no adventitious breath sounds Cardiac: Regular rate and rhythm, no murmur, no JVD, normal peripheral pulses, good capillary refill Abdominal: NABS x 4 quadrants, soft, nontender to palpation, no rebound, guarding or tenderness Extremities: Minimal trace edema L > R consistent with patient's reported baseline; normal inspection, otherwise no peripheral edema or erythema, calfs nontender to palpation Psych: Normal mood and affect Neuro: AAO x 3, strength intact bilaterally and rated 5/5, no motor deficits, speech is clear, no peripheral sensory deficits Skin: no rash or erythema Results & Data Results & Data ([facility]) Vital Signs (Past 12 Hours) Vital Signs Temp Pulse Resp BP Pulse Ox 12/23/21 11:20 76 17 91 12/23/21 11:10 75 18 12/23/21 11:00 70 16 12/23/21 10:50 74 14 12/23/21 10:40 74 12/23/21 10:30 71 12/23/21 10:20 76 20 12/23/21 10:10 75 15 12/23/21 10:01 74 16 101/55 L 12/23/21 10:00 75 18 12/23/21 09:50 78 15 12/23/21 09:40 79 19 12/23/21 09:30 80 17 108/57 L 93 12/23/21 09:23 36.3 C L 83 16 98/56 L 93 12/23/21 09:20 84 16 93 12/23/21 09:18 80 16 98/56 L 92 Laboratory Results Abnormal lab results 12/23/21 12/23/21 12/23/21 Range/Units 09:28 09:28 09:28 RBC 3.86 L (4.7-6.1) M/uL Hgb 12.6 L (14.0-18.0) g/dL Hct 37.3 L (42-52) % RDW Std Deviation 49.1 H (36.4-46.3) fL Immature Gran # (Auto) 0.04 H (0.00-0.02) K/uL BUN 71 H (6-23) mg/dl Creatinine 2.51 H (0.6-1.4) mg/dl BUN/Creatinine Ratio 28.3 H (10-20) Glucose 132 H (70-99(Fasting)) mg/dl Calcium 7.9 L (8.5-10.1) mg/dl Total Bilirubin 1.4 H (0.2-1.0) mg/dl Urine Protein (Negative) Urine Glucose (UA) (Negative) Ethyl Alcohol mg/dL 269.6 H (<10.0) mg/dl 12/23/21 Range/Units 11:21 RBC (4.7-6.1) M/uL Hgb (14.0-18.0) g/dL Hct (42-52) % RDW Std Deviation (36.4-46.3) fL Immature Gran # (Auto) (0.00-0.02) K/uL BUN (6-23) mg/dl Creatinine (0.6-1.4) mg/dl BUN/Creatinine Ratio (10-20) Glucose (70-99(Fasting)) mg/dl Calcium (8.5-10.1) mg/dl Total Bilirubin (0.2-1.0) mg/dl Urine Protein Trace H (Negative) Urine Glucose (UA) Trace H (Negative) Ethyl Alcohol mg/dL (<10.0) mg/dl Diagnostic Findings Chest X-Ray 12/23/21 09:26 XR chest 1V portable CLINICAL HISTORY: cough TECHNIQUE: Single frontal radiograph of the chest was obtained. Comparison: Comparison is made to chest radiograph 10/28/2021 FINDINGS: No lines and tubes are seen. Cardiomegaly is noted. The lungs are clear. No evidence of pleural effusion or pneumothorax. IMPRESSION: No acute chest disease. ACT 112: Negative or not required by law. Electronically signed by: Scott Celis M.D. 12/23/2021 9:50 AM ECG Additional Comments: Normal sinus rhythm Low voltage QRS Borderline ECG When compared with ECG of 18-NOV-2021 19:52, No significant change was found. Code Status & VTE Plan Code Status Full code Supervising Physician Co-Signing Physician Notes Attending Attestation & Admit Note - Pt seen/examined, chart reviewed, care plan d/w HUBER Watson. I agree w/ the cohen components of her documentation. 56yo male - known to me from his previous hospital stay in which he had COVID-19 infection and JV - presents with severe fatigue, poor appetite, myalgias, melena/tarry stools - for several days. No fevers. Did drink etoh last evening ([facility]) and has detectable etoh level this am at [facility]. He has felt "shaky" over the last 24 hours. Fatigue was so severe he "couldn't get out of bed." No sick contacts. PMH/PSH/allergies/meds/sochx/famhx - reviewed VSS, afebrile gen - looks unwell, fatigued/sickly, slight slurry speech today mouth - MM very dry heart - RRR, s1 s2, no murmur lungs - CTA b/l abd - soft NT ND BS+ ext - 1+ edema, pulses 2+ b/l neuro - strength 5/5 x 4 exts; no facial droop; slight tremor noted labs reviewed imaging reviewed COVID PCR negative EKG - NSR, no ST changes A/P: 1. severe fatigue x several days 2. JV/ARF 3. etoh abuse with detectable etoh level today 4. ?upper GI bleeding with melena stool (08/2021 EGD with esophagitis/gastritis) but relatively stable h/h; agree could be hemoconcentrated 5. recurrent VTE on chronic Eliquis 6. morbid obesity BMI 55 PPI IV IV fluids serial labs hold eliquis due to #4 etoh withdrawal precautions blood cx's to ensure no infectious process Santi Christianson MD PG Care Time/CCT Total # of Minutes Spent Total Time Spent with Patient: Total time spent is greater than 50% in coordination of care (as documented) at patient's floor/unit and/or counseling patient: Coding Level of Care Code 39440 Initial Inpt Care Lvl 3 Diagnoses Anxiety and depression F41.9; F32.9 Acute renal failure N17.9 Acute renal failure type: unspecified Alcohol abuse F10.10 GIB (gastrointestinal bleeding) K92.2 History of venous thromboembolism Z86.718 Anemia D64.9 Obstructive sleep apnea G47.33 Hypertension I10 (1) Acute renal failure Acute renal failure type: unspecified Qualified Code(s): N17.9 - Acute kidney failure, unspecified
[2021-12-23] MEDS ORDERED: LORazepam 2 MG/1 ML VIAL IV STA (13:56)
[2021-12-23] MEDS ORDERED: LORazepam 2 MG/1 ML VIAL ONE (14:08)
[2021-12-23] MEDS ORDERED: ONDANSETRON INJ 2 MG/ML 2 ML VIAL IV PRN (15:48)
[2021-12-23] MEDS ORDERED: chlordiazePOXIDE ALCOHOL WITHDRAWL 50MG PO STA ×2 (15:48)
[2021-12-23] MEDS ORDERED: chlordiazePOXIDE HCl 25 MG CAP PO SCH (15:48)
[2021-12-23] MEDS ORDERED: LORazepam 2 MG/1 ML VIAL IV PRN ×3 (15:48)
[2021-12-23] MEDS ORDERED: ATIVAN IV ALCOHOL WITHDRAWL IV PRN (15:48)
[2021-12-23] MEDS ORDERED: POLYETHYLENE (MIRALAX) 17 GM PACK PO PRN (15:48)
[2021-12-23 16:35] LABS: Hematocrit (blood only) 35.8 % (42-52); Hemoglobin 12.1 g/dL (14.0-18.0)
[2021-12-23] MEDS: LACTATED RINGER'S 1,000 ML IV SCH ×2 (16:39→22:24)
[2021-12-23] MEDS: chlordiazePOXIDE HCl 25 MG CAP PO SCH ×2 (17:16→22:27)
[2021-12-23] MEDS: GABAPENTIN 300 MG CAP PO SCH ×2 (17:16→21:06)
[2021-12-23] MEDS: FOLIC ACID 1 MG in SYRINGE 9.8 ML IV SCH (17:18)
[2021-12-23] MEDS: THIAMINE HCL 500 MG in SODIUM CHLORIDE 0.9% 50 ML IV SCH (17:21)
[2021-12-23] MEDS: PANTOprazole 40 MG in SYRINGE 0 ML IV SCH (21:06)
[2021-12-24] MEDS: THIAMINE HCL 500 MG in SODIUM CHLORIDE 0.9% 50 ML IV SCH ×2 (00:39→08:19)
[2021-12-24] MEDS: LACTATED RINGER'S 1,000 ML IV SCH ×3 (04:15→18:24)
[2021-12-24] MEDS: chlordiazePOXIDE HCl 25 MG CAP PO SCH ×3 (04:19→18:24)
[2021-12-24 07:39] LABS: Basophils # (auto) 0.01 K/uL (0-0.2); Basophils % (auto) 0.1 %; Eosinophils # (auto) 0.15 K/uL (0-0.5); Eosinophils % (auto) 2.1 %; Hematocrit (blood only) 34.3 % (42-52); Hemoglobin 11.7 g/dL (14.0-18.0); Immature Granulocytes # (auto) 0.02 K/uL (0.00-0.02); Immature Granulocytes % (auto) 0.3 %; Lymphocytes # (auto) 1.25 K/uL (1.2-3.4); Lymphocytes % (auto) 17.5 %; Mean Corpuscular Hemoglobin 32.9 pg (25-34); Mean Corpuscular Hgb Conc 34.1 g/dL (32-36); Mean Corpuscular Volume 96.3 fL (80-100); Mean Platelet Volume 9.6 fL (7.4-10.4); Monocytes # (auto) 0.49 K/uL (0.11-0.59); Monocytes % (auto) 6.8 %; Neutrophils # (auto) 5.24 K/uL (1.4-6.5); Neutrophils % (auto) 73.2 %; Platelet Count 127 K/uL (130-400); RDW Coefficient of Variation 13.6 % (11.5-14.5); RDW Standard Deviation 48.2 fL (36.4-46.3); Red Blood Count 3.56 M/uL (4.7-6.1); White Blood Count 7.16 K/uL (4.8-10.8)
[2021-12-24 08:04] LABS: Albumin Globulin Ratio 1.3 (0.9-2); Albumin Level 3.6 gm/dl (3.4-5.0); BUN Creatinine Ratio 33.1 (10-20); Bilirubin,Total 2.1 mg/dl (0.2-1.0); Calcium 8.2 mg/dl (8.5-10.1); Creatinine Clr Calc Pharmacy 111.5 ml/min; Est GFR (African American) 68.8 ml/min; Est GFR (Non-African American) 59.3 ml/min; Globulin 2.7 gm/dl (2.5-4.0); Potassium 4.8 mmol/L (3.5-5.1); Total Protein 6.3 gm/dl (6.0-8.3)
[2021-12-24] MEDS: GABAPENTIN 300 MG CAP PO SCH ×3 (08:15→21:09)
[2021-12-24] MEDS: FOLIC ACID 1 MG in SYRINGE 9.8 ML IV SCH (08:19)
[2021-12-24] MEDS: PANTOprazole 40 MG in SYRINGE 0 ML IV SCH ×2 (08:19→21:09)
--- NOTE | 2021-12-24 09:47 | Gastrointestinal Consultation ---
Date of Consultation December 24, 2021 Assessment & Plan (1) Melena: -IV Protonix gtt. Of note, patient wasn't taking his PPI at home so his Esophagitis is likely persisting. He has also been taking Aleve. -Continue to monitor H/H -If not withdrawing from alcohol, plan for EGD with push enteroscopy on 12/25, keep NPO after midnight. Supervising Physician Co-Signing Physician Notes I personally evaluated the patient and agree with the findings as documented by Enid Mitchell, PAC Exam: Constitutional: WD/WN, vitals as above General: EOM intact bilaterally Neck: normal visual inspection Respiratory: normal respiratory effort, lungs clear to auscultation Cardiovascular: RRR, no murmur, no edema Gastrointestinal: abdomennormal to inspection, nondistended, soft, nontender, no hepatosplenomegaly Musculoskeletal: no cyanosis, head normal to inspection Skin: no rashes, warm and dry Neurologic: moves all extremities Psychiatric: A and O x3, euthymic affect clear liquids today, NPO post midnight, push enteroscopy tomorrow, suspect PUD or AVM check U/A as well as he is reporting dysuria and urgency. History of Present Illness Reason for Consultation: Melena Attending Physician: Santi Christianson History of Present Illness Patient is a 56 yo male with PMH of recurrent VTE on Eliquis, HTN, HLD, depression, & alcohol abuse who presented to [facility] due to increased fatigue for several days. He notes that he developed dark, tarry stools. He has a history of alcohol abuse and did try to utilize liquor to improve his symptoms. He underwent an EGD & colonoscopy for the same issue in August 2021 that indicated gastritis & esophagitis. He does take Eliquis daily. He denies pertinent family history. He notes he did not continue to take his PPI therapy when he went home. He notes he is also daily 400-600 mg Aleve daily as well. H/H 11.7/34.3. He did have a bright red stool this AM, but had a bowel movement immediately prior to my visit that was without blood. Allergies Allergy/AdvReac Type Severity Reaction Status Date / Time No Known Allergies Allergy Verified 12/23/21 10:57 Home Medications Medication Instructions Recorded Confirmed Type atorvastatin 40 mg tablet 40 mg PO QAM 01/08/21 12/23/21 History sertraline 100 mg tablet 100 mg PO QAM 01/08/21 12/23/21 History gabapentin 300 mg capsule 300 mg PO TID PRN 08/19/21 12/23/21 History apixaban 5 mg tablet (Eliquis) 5 mg PO BID 10/28/21 12/23/21 History furosemide 40 mg tablet (Lasix) 40 mg PO DAILY #3 tab 11/19/21 12/23/21 Rx Patient History Medical History Acute duodenitis Acute hypotension Acute renal failure Alcohol abuse Alcohol dependence Anxiety and depression COVID-19 virus infection Esophagitis Rectal bleeding Recurrent syncope Surgical History H/O knee surgery ACL left, meniscus repair right History of back surgery discectomy History of nasal surgery broken nose Family History Mother Alzheimer disease Pulmonary embolism Social History Smoking Status: Former smoker Tobacco Type: Cigarettes Second Hand Exposure: No; Hx Alcohol Use: Yes Alcohol type: hard liquor Alcohol Intake Frequency: 4 or More x per/Week Alcohol Intake Frequency Comment: 2 pints/day up until 2 months ago Hx Substance Use: No Preferred Language: Urdu Communication Ability: Effective Electronic Assembly Required: No Beliefs That Will Affect Care: None marital status: Current Living Situation: Spouse Current Living Situation Comment: Pt lives in [place] but works in [employer] for work current occupation: construction company in [employer] How many Children do You have: 4 Feels Safe at Home: Yes Safety Concerns: Feels Safe At This Time Assistive Devices: None Review of Systems Constitutional: + fatigue; no fever and no chills Respiratory: no cough and no dyspnea Cardiovascular: no chest pain Gastrointestinal: + blood in stools and + melena; no abdominal pain Hematologic / Lymphatic: no unexplained weight loss Physical Exam Constitutional: well developed Neck: normal visual inspection Respiratory: normal respiratory effort Cardiovascular: Rate/Rhythm: regular rate Gastrointestinal (Abdomen): Inspection/Auscultation: abdomen normal to inspection Musculoskeletal: Head/Neck/Chest: normocephalic Psychiatric: Orientation: alert and oriented x 3 Results & Data ([facility]) Vital Signs (Past 12 Hours) Vital Signs Temp Pulse Pulse Resp BP Pulse Ox Pulse Ox 12/24/21 07:42 36.4 C L 87 19 153/85 H 93 12/24/21 04:06 36.8 C 88 18 129/70 96 12/24/21 03:06 86 26 H 96 12/24/21 00:00 92 12/23/21 22:39 36.8 C 83 18 158/89 H 94 12/23/21 22:30 120 H PG Care Time/CCT Total # of Minutes Spent Total Time Spent with Patient: Total time spent is greater than 50% in coordination of care (as documented) at patient's floor/unit and/or counseling patient: Coding Level of Care Code 16218 Inpt Consult Level 4 Diagnoses Melena K92.1
--- NOTE | 2021-12-24 13:49 | Hospitalist Progress Note ---
Date of Service December 24, 2021 Assessment & Plan (1) GIB (gastrointestinal bleeding): Plan: suspected upper GI source 08/2021 had EGD showing gastritis/esophagitis. at risk of such due to ongoing etoh abuse & Eliquis use. Cont PPI 40mg IV BID. GI consult appreciated - to have EGD tomorrow. cont to follow h/h. Eliquis on hold. (2) Acute renal failure: Plan: Prerenal/volume contraction. Improved/resolved. Cont IVF - lower fluid rate. BMP am. (3) Anemia: Plan: 2nd to suspected acute blood loss anemia from #1 above. trend cbc. no need for PRBCs at this time. (4) Alcohol abuse: Plan: thus far no signs of withdrawal. he takes gabapentin 300mg TID chronically for LE neuropathy. cont librium taper. ativan prn per etoh withdrawal protocol. cont folate IV daily. thiamine IV daily or BID. counseled to quit -- offered help. (5) Hypertension: Plan: hold ALL BP meds at this time (6) History of venous thromboembolism: Plan: pre-admission was on Eliquis 5mg BID. on hold due to concern for #1. (7) Obstructive sleep apnea: Plan: Continue CPAP at night. (8) Anxiety and depression: Plan: Resume sertraline. Consider higher dose - patient seems depressed. Plan: diarrhea - check stool [employer] dysuria - check u/a, urine cx if needed updated pt's by phone this evening needs PT/OT evals Admission and Anticipated Discharge Date Admission Date: December 23, 2021 Subjective pt feels better cont to have frequent BMs, about every 90 minutes last stool was more brown in color calibre- liquid no nausea or emesis he is also having dysuria tolerated clears today tele overnight wnl doesn't feel shaky today we had lengthy discussion about his etoh consumption & his deleterious effects on his body he concurs Review of Systems Review of Systems: gen - no fevers; fatigue improved CV - no cp pulm - no dyspea GI - mild abd discomfort (upper) Physical Exam Physical Exam: gen - looks better today; NAD; morbid obesity; speech more clear/coherent today mouth - MM more moist today neck - no JVD heart - RRR, s1 s2 lungs - decreased BS bases, CTA b/l otherwise abd - soft NT ND BS+ ext - pulses 2+ b/l neuro - no tremor or signs of etoh withdrawal today Results & Data Results & Data ([facility]) Vital Signs (Past 12 Hours) Vital Signs Temp Pulse Pulse Resp BP Pulse Ox 12/24/21 11:09 36.9 C 89 20 151/85 H 94 12/24/21 07:42 36.4 C L 87 19 153/85 H 93 12/24/21 04:06 36.8 C 88 18 129/70 96 12/24/21 03:06 86 26 H 96 Laboratory Results Cr 1.3 today hemoglobin 11.7 PG Care Time/CCT Total # of Minutes Spent Total Time Spent with Patient: Total time spent is greater than 50% in coordination of care (as documented) at patient's floor/unit and/or counseling patient: Coding Level of Care Code 19660 Subseq Hosp Care Lvl 3 Diagnoses GIB (gastrointestinal bleeding) K92.2 Acute renal failure N17.9 Acute renal failure type: unspecified Anemia D64.9 Alcohol abuse F10.10 Hypertension I10 History of venous thromboembolism Z86.718 Obstructive sleep apnea G47.33 Anxiety and depression F41.9; F32.9 (1) Acute renal failure Acute renal failure type: unspecified Qualified Code(s): N17.9 - Acute kidney failure, unspecified
[2021-12-24 15:34] LABS: Adenovirus F 40/41 PCR Not Detected (NotDetected); Astrovirus PCR Not Detected (NotDetected); Campylobacter PCR Not Detected (NotDetected); Clostridium diff Toxin A/B PCR Not Detected (NotDetected); Cryptosporidium PCR Not Detected (NotDetected); Cyclospora cayetanensis PCR Not Detected (NotDetected); Entamoeba histolytica PCR Not Detected (NotDetected); Enteroaggregative E.coli(EAEC) Not Detected (NotDetected); Enteropathogenic E.coli (EPEC) Not Detected (NotDetected); Enterotoxigenic E.coli (ETEC) Not Detected (NotDetected); Giardia lamblia PCR Not Detected (NotDetected); Norovirus GI/GII PCR Not Detected (NotDetected); Plesiomonas shigelloides PCR Not Detected (NotDetected); Rotavirus A PCR Not Detected (NotDetected); Salmonella PCR Not Detected (NotDetected); Sapovirus PCR Not Detected (NotDetected); Shiga-like Toxin E.coli (STEC) Not Detected (NotDetected); Shigella/Enteroinvasive E.coli Not Detected (NotDetected); Vibrio cholerae PCR Not Detected (NotDetected); Vibrio species PCR Not Detected (NotDetected); Yersinia enterocolitica PCR Not Detected (NotDetected)
--- NOTE | 2021-12-24 19:04 | Electrocardiogram Report ---
Test Reason : Blood Pressure : / mmHG Vent. Rate : 081 BPM Atrial Rate : 081 BPM P-R Int : 156 ms QRS Dur : 092 ms QT Int : 362 ms P-R-T Axes : 052 -03 026 degrees QTc Int : 420 ms Normal sinus rhythm Low voltage QRS Borderline ECG When compared with ECG of 18-NOV-2021 19:52, No significant change was found Confirmed by Anil Aguilar ([id number]) on 12/24/2021 7:04:14 PM Referred By: Confirmed By:Anil Aguilar
[2021-12-24] MEDS ORDERED: MELATONIN 3 MG TAB PO PRN (21:00)
[2021-12-24 22:01] LABS: Appearance Urine Clear (Clear); Bilirubin Urine Negative (Negative); Blood Urine Negative (Negative); Color Urine Yellow; Glucose Urine UA 1+ (Negative); Ketones Urine Negative (Negative); Leukocyte Esterase Urine Negative (Negative); Nitrite Urine Negative (Negative); Protein Urine Negative (Negative); Urobilinogen Urine Negative (Negative)
[2021-12-25] MEDS: LACTATED RINGER'S 1,000 ML IV SCH ×3 (01:51→10:24)
[2021-12-25] MEDS: chlordiazePOXIDE HCl 25 MG CAP PO SCH ×3 (02:29→18:23)
[2021-12-25] MEDS: GABAPENTIN 300 MG CAP PO SCH ×3 (06:56→20:36)
[2021-12-25 07:14] LABS: Hematocrit (blood only) 32.1 % (42-52); Mean Corpuscular Hemoglobin 33.6 pg (25-34); Mean Corpuscular Hgb Conc 34.3 g/dL (32-36); Mean Corpuscular Volume 98.2 fL (80-100); RDW Coefficient of Variation 13.3 % (11.5-14.5); RDW Standard Deviation 47.6 fL (36.4-46.3); Red Blood Count 3.27 M/uL (4.7-6.1); White Blood Count 4.08 K/uL (4.8-10.8)
[2021-12-25 07:37] LABS: BUN Creatinine Ratio 17.7 (10-20); Calcium 8.3 mg/dl (8.5-10.1); Creatinine Clr Calc Pharmacy 114.5 ml/min; Est GFR (African American) 70.7 ml/min; Potassium 4.3 mmol/L (3.5-5.1)
[2021-12-25] MEDS: PANTOprazole 40 MG in SYRINGE 0 ML IV SCH ×2 (07:52→20:36)
[2021-12-25] MEDS: FOLIC ACID 1 MG in SYRINGE 9.8 ML IV SCH (07:53)
[2021-12-25 08:04] LABS: Mean Platelet Volume 9.8 fL (7.4-10.4); Platelet Count 89 K/uL (130-400)
--- NOTE | 2021-12-25 08:12 | History & Physical Bridge Note ---
Date of Service December 25, 2021 History & Physical Bridge Note I have examined the patient, reviewed the History & Physical and in the interval since the performance of the History & Physical I have noted the following changes of clinical significance: no changes noted. Patient's H/H is 11.0/32.1. He denies further bowel movements since animal cop on 12/24/21. Keep NPO, Continue IV Protonix, and proceed with small bowel enteroscopy today.
[2021-12-25] MEDS: CYANOCOBALAMIN 1000 MCG/ML VIAL IM SCH (10:24)
[2021-12-25] MEDS: THIAMINE HCL 200 MG in SODIUM CHLORIDE 0.9% 50 ML IV SCH ×2 (10:38→20:35)
[2021-12-25] MEDS: SERTRALINE HCL 50 MG TABLET PO SCH (10:39)
--- NOTE | 2021-12-25 12:31 | Anesthesiology Consultation ---
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 Kyle - Juan Kyle MD Height/Weight Height: 6 ft 2 in Weight: 195.6 kg Allergies Allergy/AdvReac Type Severity Reaction Status Date / Time No Known Allergies Allergy Verified 12/23/21 10:57 Medications Home Medications Medication Instructions Recorded Confirmed Last Taken atorvastatin 40 mg tablet 40 mg PO QAM 01/08/21 12/23/21 12/22/21 sertraline 100 mg tablet 100 mg PO QAM 01/08/21 12/23/21 12/22/21 gabapentin 300 mg capsule 300 mg PO TID PRN 08/19/21 12/23/21 12/22/21 apixaban 5 mg tablet (Eliquis) 5 mg PO BID 10/28/21 12/23/21 12/22/21 furosemide 40 mg tablet (Lasix) 40 mg PO DAILY #3 tab 11/19/21 12/23/21 12/22/21 Active Medications Generic Name Dose Route Start Last Admin Trade Name Christosq PRN Reason Stop Dose Admin Cyanocobalamin 1,000 mcg 12/25/21 09:45 12/25/21 10:24 Cyanocobalamin 1000 Mcg/Ml Vial IM 12/29/21 09:01 Not Given QAM COLLEEN Gabapentin 300 mg 12/23/21 17:00 12/25/21 06:56 Gabapentin 300 Mg Cap PO 01/22/22 16:59 Not Given TID COLLEEN Lactated Ringer's 1,000 mls @ 125 mls/hr 12/23/21 15:48 12/25/21 10:23 Lr IV 01/22/22 15:47 Infused .Q8H COLLEEN Infusion Folic Acid 1 mg/ Syringe 10 mls @ 5 mls/min 12/23/21 17:00 12/25/21 07:53 IV 01/22/22 16:59 5 mls/min QAM COLLEEN Administration Pantoprazole Sodium 40 mg/ 10 mls @ 5 mls/min 12/23/21 21:00 12/25/21 07:52 Syringe IV 01/22/22 20:59 5 mls/min BID OCLLEEN Administration Thiamine HCl 200 mg/ Sodium 52 mls @ 208 mls/hr 12/25/21 10:30 12/25/21 11:01 Chloride IV 01/24/22 10:29 Infused BID COLLEEN Infusion Sertraline HCl 150 mg 12/25/21 10:00 12/25/21 10:39 Sertraline Hcl 50 Mg Tablet PO 01/24/22 09:59 Not Given QAM COLLEEN Past Medical History Medical History Acute duodenitis Acute hypotension Acute renal failure Alcohol abuse Alcohol dependence Anxiety and depression COVID-19 virus infection Esophagitis Rectal bleeding Recurrent syncope Past Family History Family History Mother Alzheimer disease Pulmonary embolism Past Surgical History Surgical History H/O knee surgery ACL left, meniscus repair right History of back surgery discectomy History of nasal surgery broken nose Social History Smoking Status: Former smoker tobacco type: cigarettes Hx Alcohol Use: Yes Alcohol type: hard liquor alcohol intake frequency: 3 or more drinks per day Hx Substance Use: No Physical Exam Vital Signs Last Vital Signs Temp 37.1 C 12/25/21 12:19 Pulse 91 H 12/25/21 12:19 Resp 18 12/25/21 12:19 BP 178/79 H 12/25/21 12:19 Pulse Ox 96 12/25/21 12:19 Testing Laboratory Results 12/25/21 06:35 12/25/21 06:35 PT 11.1 Seconds (9.0-12.0) 12/23/21 09:28 INR 1.0 (0.9-1.1) 12/23/21 09:28 Urine Color Yellow 12/24/21 20:26 Urine Appearance Clear (Clear) 12/24/21 20:26 Urine pH 6.0 (4.5-7.5) 12/24/21 20:26 Ur Specific [place] 1.020 (1.000-1.030) 12/24/21 20:26 Urine Protein Negative (Negative) 12/24/21 20:26 Urine Glucose (UA) 1+ (Negative) H 12/24/21 20:26 Urine Ketones Negative (Negative) 12/24/21 20:26 Urine Nitrite Negative (Negative) 12/24/21 20:26 Ur Leukocyte Esterase Negative (Negative) 12/24/21 20:26 Urine WBC (Auto) 1-5 /hpf (0-5) 12/23/21 11:21 Urine RBC (Auto) 0-4 /hpf (0-4) 12/23/21 11:21 U Hyaline Cast (Auto) 1-5 /lpf (0-5) 12/23/21 11:21 U Epithel Cells (Auto) 0-5 /lpf (0-5) 12/23/21 11:21 Urine Bacteria (Auto) Negative (Negative) 12/23/21 11:21 12/23/21 15:02 Aerobic Blood Culture - Preliminary Blood No growth in Aerobic bottle after 24 hours. Anaerobic Blood Culture - Final 12/23/21 14:57 Aerobic Blood Culture - Preliminary Blood No growth in Aerobic bottle after 24 hours. Anaerobic Blood Culture - Preliminary No growth in Anaerobic bottle after 24 hours. Electrocardiogram Date: 12/23/21 Test Reason : Blood Pressure : / mmHG Vent. Rate : 081 BPM Atrial Rate : 081 BPM P-R Int : 156 ms QRS Dur : 092 ms QT Int : 362 ms P-R-T Axes : 052 -03 026 degrees QTc Int : 420 ms Normal sinus rhythm Low voltage QRS Borderline ECG When compared with ECG of 18-NOV-2021 19:52, No significant change was found Confirmed by Anil Aguilar ([id number]) on 12/24/2021 7:04:14 PM Chest X-Ray Date: 12/23/21 XR chest 1V portable CLINICAL HISTORY: cough TECHNIQUE: Single frontal radiograph of the chest was obtained. Comparison: Comparison is made to chest radiograph 10/28/2021 FINDINGS: No lines and tubes are seen. Cardiomegaly is noted. The lungs are clear. No evidence of pleural effusion or pneumothorax. IMPRESSION: No acute chest disease.
[2021-12-25] MEDS ORDERED: fentaNYL citrate 100 MCG/2 ML VIAL ONE (14:17)
[2021-12-25] MEDS ORDERED: PROPOFOL IV EMULSION 10 MG/ML 20 ML VIAL IV ONE ×2 (14:17→15:07)
[2021-12-25] MEDS ORDERED: LIDOCAINE 2% 2 ML VIAL/AMP(20MG/ML) INFIL ONE (14:17)
[2021-12-25] MEDS ORDERED: KETAMINE 50 MG/5 ML SYRINGE ONE (14:52)
--- NOTE | 2021-12-25 15:05 | GI REPORT ---
Patient Name: Murray Hodge Procedure Date: 12/25/2021 2:25 PM Date of : 1965 Admit Type: Inpatient Age: 56 Gender: Male Attending MD: Juan Kyle MD Procedure: Small bowel enteroscopy Providers: Juan Kyle MD Referring MD: Juan Kyle MD Indications: Melena Medicines: Monitored Anesthesia Care Complications: No immediate complications. Estimated blood loss: None. Estimated Blood Loss: Estimated blood loss: none. Procedure: Pre-Anesthesia Assessment: - Prior Anticoagulants: The patient has taken no previous anticoagulant or antiplatelet agents. - ASA Grade Assessment: II - A patient with mild systemic disease. After obtaining informed consent, the endoscope was passed under direct vision. Throughout the procedure, the patient's blood pressure, pulse, and oxygen saturations were monitored continuously. The Colonoscope was introduced through the mouth and advanced to the fourth part of duodenum. The small bowel enteroscopy was accomplished without difficulty. The patient tolerated the procedure well. Findings: The examined esophagus was normal. Few non-bleeding superficial gastric ulcers with no stigmata of bleeding were found in the stomach. no blood noted in entire exam. Diffuse moderate mucosal changes characterized by discoloration were found in the duodenal bulb and in the second portion of the duodenum. Biopsies for histology were taken with a cold forceps for evaluation of celiac disease. Estimated blood loss: none. There was no evidence of significant pathology in the third portion of the duodenum and in the fourth portion of the duodenum. Impression: - Normal esophagus. - Non-bleeding gastric ulcers with no stigmata of bleeding. - Mucosal changes in the duodenum. Biopsied. - Normal third portion of the duodenum and fourth portion of the duodenum. Recommendation: - [facility] - Advance diet as tolerated today. -protonix 40 mg daily -strict avoidance of NSAIDs -should bleeding recur would recommend outpatient capsule endoscopy Juan Kyle MD 12/25/2021 3:04:46 PM This report has been signed electronically. Note Initiated On: 12/25/2021 2:25 PM Number of Addenda: 0 I attest to the content of the Intraoperative Record and orders documented therein, exceptions below {[id number]}
--- NOTE | 2021-12-25 15:45 | Anesthesiology Progress Note ---
Date of Service December 25, 2021 Anesthesia Post Procedure Vital Signs Vital Signs: Temp Pulse Pulse Resp BP Pulse Ox Pulse Ox 12/25/21 15:35 76 16 146/69 H 97 12/25/21 15:20 76 16 146/70 H 97 12/25/21 15:05 90 16 165/84 H 97 12/25/21 14:21 36.2 C L 84 18 163/84 H 96 12/25/21 12:19 37.1 C 91 H 18 178/79 H 96 12/25/21 08:16 37.1 C 73 18 177/85 H 96 12/25/21 03:38 71 17 94 12/25/21 02:47 36.4 C L 68 18 137/82 96 12/25/21 00:00 94 12/24/21 23:49 82 12/24/21 23:29 36.8 C 71 18 147/68 H 93 12/24/21 22:50 87 22 100 12/24/21 18:55 36.9 C 92 H 18 150/89 H 92 Transfer of Care Handoff Completed per policy Notes Mental Status: alert / awake / arousable and participated in evaluation Patient Amnestic to Procedure: Yes Nausea / Vomiting: adequately controlled Pain: adequately controlled Airway Patency, RR, SpO2: stable & adequate BP & HR: stable & adequate Hydration State: stable & adequate Anesthetic Complications: no major complications apparent and Pt Satisfied with anesthetic care
--- NOTE | 2021-12-25 21:13 | Hospitalist Progress Note ---
Date of Service December 25, 2021 Assessment & Plan (1) GIB (gastrointestinal bleeding): Plan: suspected upper GI source 08/2021 had EGD showing gastritis/esophagitis. EGD today - nonbleeding gastric ulcers and abnl appearing duodenum s/p bx. Cont PPI 40mg IV BID - change to PO PPI tomorrow. repeat CBC am. Eliquis on hold. resume at discharge. (2) Acute renal failure: Plan: Prerenal/volume contraction. Resolved. Cr now 1.3 (baseline). BMP am. STop IV fluids. (3) Anemia: Plan: 2nd to suspected acute blood loss anemia from #1 above. H/H cont to remain stable. (4) Alcohol abuse: Plan: thus far no signs of withdrawal. he takes gabapentin 300mg TID chronically for LE neuropathy. cont librium taper. ativan prn per etoh withdrawal protocol. cont folate IV daily. thiamine IV BID. counseled to quit - he will pursue avenues in [place] upon his return there. (5) Hypertension: Plan: BPs beginning to rise will resume at least 1 agent - go with amlodipine 5mg daily (6) History of venous thromboembolism: Plan: pre-admission was on Eliquis 5mg BID. on hold due to #1. resume eliquis at discharge. (7) Obstructive sleep apnea: Plan: Continue CPAP at night. (8) Anxiety and depression: Plan: Resume sertraline - titrate to 150mg/day. Patient seems to be actively depressed. Plan: diarrhea - checked stool [employer] - negative dysuria - checked u/a - negative, not suggestive of UTI updated pt's by phone yesterday evening needs PT/OT evals OT done today - did well, no needs await PT eval mildly low platelets - due to recent etoh, perhaps consumptive from GI bleeding, etc repeat cbc am Admission and Anticipated Discharge Date Admission Date: December 23, 2021 Subjective pt sitting in chair during the visit feels good fatigue much better tolerating diet s/p EGD today - no active bleeding seen tele stable overnight we had lengthy discussion today about etoh he knows he needs to quit - has struggled for years with such Review of Systems Review of Systems: gen - no fevers or chills cv - no cp, no orthopnea pulm - no dyspnea GI - no pain, nausea or emesis Physical Exam Physical Exam: gen - looks good today, NAD mouth - MMM neck - no JVD heart - RRR, s1 s2, no murmur lungs - decreased BS bases, CTA b/l otherwise abd - soft NT ND BS+ ext - pulses 2+ b/l neuro - no tremor or signs of etoh withdrawal once again psych - a/o x 3 Results & Data Results & Data ([facility]) Vital Signs (Past 12 Hours) Vital Signs Temp Pulse Resp BP Pulse Ox 12/25/21 19:30 37.1 C 93 H 18 158/92 H 96 12/25/21 15:55 36.8 C 80 19 162/83 H 94 12/25/21 15:35 76 16 146/69 H 97 12/25/21 15:20 76 16 146/70 H 97 12/25/21 15:05 90 16 165/84 H 97 12/25/21 14:21 36.2 C L 84 18 163/84 H 96 12/25/21 12:19 37.1 C 91 H 18 178/79 H 96 Laboratory Results Laboratory Results - last 24 hr 12/24/21 12/25/21 12/25/21 20:26 06:35 06:35 WBC 4.08 L RBC 3.27 L Hgb 11.0 L Hct 32.1 L MCV 98.2 MCH 33.6 MCHC 34.3 RDW Std Deviation 47.6 H RDW Coeff of Oksana 13.3 Plt Count 89 L MPV 9.8 Sodium 136 Potassium 4.3 Chloride 105 Carbon Dioxide 27 Anion Gap 4 BUN 23 D Creatinine 1.30 Est Cr Clr Drug Dosing 114.5 Est GFR ( Amer) 70.7 Est GFR (Non-Af Amer) 61.0 BUN/Creatinine Ratio 17.7 Glucose 122 H Calcium 8.3 L Urine Color Yellow Urine Appearance Clear Urine pH 6.0 Ur Specific [place] 1.020 Urine Protein Negative Urine Glucose (UA) 1+ H Urine Ketones Negative Urine Blood Negative Urine Nitrite Negative Urine Bilirubin Negative Urine Urobilinogen Negative Ur Leukocyte Esterase Negative PG Care Time/CCT Total # of Minutes Spent Total Time Spent with Patient: Total time spent is greater than 50% in coordination of care (as documented) at patient's floor/unit and/or counseling patient: Coding Level of Care Code 00713 Subseq Hosp Care Lvl 2 Diagnoses GIB (gastrointestinal bleeding) K92.2 Acute renal failure N17.9 Acute renal failure type: unspecified Anemia D64.9 Alcohol abuse F10.10 Hypertension I10 History of venous thromboembolism Z86.718 Obstructive sleep apnea G47.33 Anxiety and depression F41.9; F32.9 (1) Acute renal failure Acute renal failure type: unspecified Qualified Code(s): N17.9 - Acute kidney failure, unspecified
[2021-12-26] MEDS: chlordiazePOXIDE HCl 25 MG CAP PO SCH ×2 (03:02→12:20)
[2021-12-26 07:17] LABS: Hematocrit (blood only) 32.1 % (42-52); Hemoglobin 11.1 g/dL (14.0-18.0); Mean Corpuscular Hemoglobin 33.8 pg (25-34); Mean Corpuscular Hgb Conc 34.6 g/dL (32-36); Mean Corpuscular Volume 97.9 fL (80-100); RDW Coefficient of Variation 13.2 % (11.5-14.5); RDW Standard Deviation 46.9 fL (36.4-46.3); Red Blood Count 3.28 M/uL (4.7-6.1)
[2021-12-26 07:40] LABS: Mean Platelet Volume 10.1 fL (7.4-10.4); Platelet Count 84 K/uL (130-400)
[2021-12-26] MEDS: SERTRALINE HCL 50 MG TABLET PO SCH (08:01)
[2021-12-26] MEDS: FOLIC ACID 1 MG in SYRINGE 9.8 ML IV SCH (08:02)
[2021-12-26] MEDS: THIAMINE HCL 200 MG in SODIUM CHLORIDE 0.9% 50 ML IV SCH (08:02)
[2021-12-26] MEDS: GABAPENTIN 300 MG CAP PO SCH (08:02)
[2021-12-26] MEDS: PANTOprazole 40 MG in SYRINGE 0 ML IV SCH (08:03)
[2021-12-26] MEDS: CYANOCOBALAMIN 1000 MCG/ML VIAL IM SCH (08:17)
[2021-12-26 09:29] LABS: Anion Gap 4 (3-11); BUN Creatinine Ratio 11.9 (10-20); Blood Urea Nitrogen 16 mg/dl (6-23); Calcium 8.3 mg/dl (8.5-10.1); Carbon Dioxide 28 mmol/L (21-32); Chloride 103 mmol/L (98-107); Creatinine Clr Calc Pharmacy 112.5 ml/min; Est GFR (African American) 68.2 ml/min; Est GFR (Non-African American) 58.8 ml/min; Glucose 106 mg/dl (70-99(Fasting)); Sodium 135 mmol/L (136-145)
[2021-12-26] MEDS ORDERED: amLODIPine BESYLATE 5 MG TAB PO SCH (10:30)
--- NOTE | 2021-12-26 12:20 | Discharge Summary ---
Date of Service date of admission - December 23, 2021 date of discharge - December 26, 2021 Admission HPI Per Admitting Provider Mr. 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 Since Wednesday, he has been bedbound due to extreme fatigue that has seem to come on suddenly. He has been sleeping the majority of his days and has not had much motivation or energy to do anything. He is felt lightheaded and dizzy at times. He has also lost much of his appetite, has not been eating anything and primarily drinking Gatorade for hydration and has developed frequent dark, tarry, loose bowel movements that occasionally have moderate amounts of bright red blood in them sometimes. It is difficult for him to determine which s ymptoms develop first, however the fatigue, loss of appetite, dizziness/lightheadedness, and dark BMs all started within the same 3-day period. Has been trying to abstain from alcohol, however did drink 1/5 of a handle of liquor between and Wednesday, abstained over the weekend but reports last night he had about 8 ounces of [place] comfort to try to feel better, as he has withdrawn from alcohol before and wondered if his symptoms were related to this. He has been told he has history of hemorrhoids, but denies painful bowel movements and frequent blood in stool. He is on Eliquis twice daily due to development of blood clots on Xarelto. He has been taking this regularly, however has not had it today yet. He has had some chills over the past day, but denies fever, chest pain, palpitations, shortness of breath, cough, abdominal pain, nausea, vomiting. Hospitalized in August for GI beed, at that time EGD showed esophagitis and gastritis, colonoscopy with small, nonbleeding external hemorrhoids. In ED, borderline hypotensive 101/55, vital signs otherwise within normal limits and stable. Labs significant for HGb 12.6, BUN 71, creatinine 2.51, calcium 7.9, T bili 1.4. EtoH 269.6. COVID/flu/RSV negative. Principal Diagnosis 1. upper gastrointestinal bleeding - 2nd to gastric ulcers. 2. mild anemia - due to #1. Discharge hemoglobin 11.1. 3. acute kidney injury. 4. alcohol abuse. Discharge Exam gen - looks good, NAD; morbidly obese mouth - MMM neck - no JVD heart - RRR, s1 s2, no murmur lungs - decreased BS bases, CTA b/l otherwise abd - soft NT ND BS+ ext - pulses 2+ b/l neuro - no tremor or signs of etoh withdrawal psych - a/o x 3 Discharge Data Allergies Allergy/AdvReac Type Severity Reaction Status Date / Time No Known Allergies Allergy Verified 12/23/21 10:57 Consultations [facility], OT Procedures Performed Operation Date: 12/25/21 16:45 Actual Procedures Small Bowel Enteroscopy BX/CYT - Juan Kyle MD - Normal esophagus. - Non-bleeding gastric ulcers with no stigmata of bleeding. - Mucosal changes in the duodenum. Biopsied. - Normal third portion of the duodenum and fourth portion of the duodenum. Hospital Course (1) GIB (gastrointestinal bleeding): Upper, 2nd to multiple gastric ulcers. EGD this admission with nonbleeding gastric ulcers and abnormal appearing duodenum. Biopsy of the duodenum showed villous blunting likely from NSAID use. No malignancy was seen. Celiac disease panel was sent and this returned normal/negative. Combination of NSAID use and alcohol use likely to blame for the gastric ulcers. Treated with IV PPI then oral PPI. At discharge he was advised to use protonix 40mg BID x 30 days, then once daily after that. Highly encouraged to stop all forms of etoh use. Highly encouraged to stop all forms of NSAID use. Discharge hemoglobin was 11.1. Recommend he have a repeat CBC within a week of discharge to ensure stability. Eliquis was held the entire visit. He can resume the Eliquis 24 hours after discharge. (2) Acute renal failure: Prerenal/volume contraction to blame for his JV. Peak creatinine was 2.5, improving to 1.3 at discharge. Creatinine remained at 1.3 for 2-3 days before discharge. (3) Anemia: 2nd to acute blood loss anemia from #1 above. Discharge hemoglobin 11.1. Vitamin B12 level was 232 in October 2021. Advised 1000mcg of supplemental vitamin B12 daily for about 1 year. Also advised 1mg of folic acid daily for 30 days. (4) Alcohol abuse: He had no symptoms/signs of withdrawal during the visit. He was maintained on a librium taper and his home gabapentin was continued. Received thiamine supplementation during the stay and I recommended 200mg BID of thiamine for 30 days post-discharge. He was counseled on multiple occasions to quit - he will pursue various avenues upon return to his home [facility]. (5) Hypertension: BPs were low or low-normal initially. As he was fluid resuscitated his BPs normalized then began to become hypertensive. Given his multiple episodes of JV over the last 6 months I recommended he not use LAVERN or ARB therapy. Thus, prescribed amlodipine 5mg once daily at discharge. (6) History of venous thromboembolism: Takes Eliquis 5mg BID chronically. Was placed on hold during the hospitalization. Will resume Eliquis about 24 hours after discharge. (7) Obstructive sleep apnea: Continue CPAP at night. (8) Anxiety and depression: Resumed sertraline - titrated from 100mg/day to 150mg/day. Patient with some active depression. (9) Generalized weakness: 2nd to #1 above. No infectious etiology was found. Blood cultures were negative, u/a was negative, COVID testing was negative. Stool Bio[employer] panel fully negative. Weakness improved with resolution of JV and treatment of his upper GI bleeding. Appetite improved later in the stay. (10) History of pulmonary embolism: Continue Eliquis 5mg BID. (11) Morbid obesity with BMI of 50.0-59.9, adult: BMI 56. (12) Thrombocytopenia: Platelets were 169 on presentation. Falling to 84 late in the stay. Suspect consumptive from active GI bleeding, bone marrow suppression from etoh abuse, and potentially nutritional deficiencies all contributing to the low platelets. He will need a repeat platelet count at time of hospital follow-up - within 7 days highly advised. seen by PT/OT - cleared for home, no inpatient rehab needed Total Time Total Time Spent Total Time Spent (In Minutes): 45 Discharge Plan Discharge Items Patient Disposition: Home - Self-Care Reason For Visit: Gastrointestinal bleeding, Severe fatigue Discharge Diagnosis: 1. gastrointestinal bleeding - due to stomach ("gastric") ulcers. Ulcers formed due to alcohol abuse and Alleve usage. 2. mild anemia - due to #1. 3. high blood pressure. 4. severe fatigue - due to #1, #2. 5. alcohol abuse. 6. history of recurrent episodes of blood clots. 7. low platelets - likely due to bleeding, alcohol abuse, and other factors. Discharge platelet count 84. Follow-up CBC needed. 8. acute kidney injury (rise in creatinine) - resolved. Likely was due to #1. Discharge creatinine level 1.3. Activity: Resume your previous activity Non-emergency contact: Primary Care Provider Call non-emergency contact if: you have any medication questions and your symptoms worsen Follow-up/Referrals: Jesus Arevalo MD [Primary Care Provider] - (see Dr Arevalo in 3-5 days ) Diet: Heart Healthy Addtl Attending Provider Instructions: Mr Hodge, Martín were admitted to [facility] after presenting with severe fatigue and concern for upper gastrointestinal bleeding. At home you were having dark, tarry stools which is typically indicative of bleeding from the stomach or first part of the small intestine (duodenum). Your creatinine (kidney number) was elevated due to bleeding & dehydration. We started you on IV acid reducers (pantoprazole) along with IV fluids. [facility] saw you in consult and performed EGD (upper endoscopy) on 12/25/21. This showed multiple ulcers in the stomach. See handout on peptic ulcers. It also showed that the lining of the duodenum was abnormal. The biopsy from the duodenum showed that the abnormalities there were likely from Alleve anti-inflammatory usage. There is a slight chance that celiac disease could have caused irritation of the duodenum but this is not highly suspected. To be on the safe side a blood test for celiac disease was dispatched but I anticipate it will return to normal. The use of Alleve anti-inflammatory pills and alcohol likely caused the ulcers and may have even made the kidneys sick. Recommendations - 1. Take pantoprazole 40mg twice daily x 1 month. After 1 month the pantoprazole will be reduced to once daily. Please obtain future prescriptions for the pantoprazole from your family doctor. 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 2. STOP all anti-inflammatory pills. This includes alleve, motrin, ibuprofen, naprosyn, and aspirin. 3. OK to use topical diclofenac gel for your knee arthritis. 4 grams up to 4 times a day as needed/desired. I have sent a prescription to the pharmacy for you but they may ask you to purchase it [id number]. OK to use tylenol [id number] for arthritis pain. This will not bother your stomach. 4. STOP any previous prescriptions for blood pressure or fluid/diuretics. 5. NEW prescription for blood pressure -- amlodipine 5mg once daily. Start this TOMORROW, 12/27/21. 6. Take the following nutritional supplements - * vitamin B12 1000mcg daily x 1 year (I sent this as a prescription, but your pharmacist may have you purchase it [id number]) * vitamin B1 (thiamine) - 200mg twice daily x 30 days (prescription sent to [facility]) * folic acid 1mg once daily x 30 days (prescription sent to [facility]) 7. Eliquis blood thinner -- HOLD TODAY. DO NOT TAKE YOUR BLOOD THINNER TODAY. OK to resume the morning of 12/27/2021. 8. Sertraline (for depression/anxiety) - * INCREASE your dosage to 150mg (1.5 tablets) once daily * follow-up with Dr Arevalo for this I am very concerned that your alcohol use is contributing very heavily to your health problems. Please speak to Dr Arevalo about a referral to psychiatry to help you maintain your sobriety. When you see Dr Arevalo this coming week please have him repeat the following blood work --- CBC, BMP. Finally, on your travels back to [place], please stop and take a 5 minute walk about every 60-90 minutes. This is to help prevent blood clots in your legs. Follow-up - see Dr Arevalo in 3-5 days Return to any hospital if - * you have see dark, black, tarry stools * you see bright red blood in your stools (your colonoscopy in August 2021 was normal except for hemorrhoids) * you have severe abdominal pain * you have shortness of breath * any other concerns It was my pleasure to care for you at [facility]! Dr Christianson Pending Studies at Discharge: Yes Studies:: Blood work testing for celiac disease (suspicion for this condition is VERY low) Stand-Alone Forms: My [facility] [employer], Work/School Release, Smoking Cessation Medications and DC Order Prescriptions: New amlodipine [Norvasc] 5 mg Tablet 5 mg PO QAM Qty: 30 RF: 2 pantoprazole 40 mg Tablet,Delayed Release (Dr/Ec) 40 mg PO BID Qty: 60 RF: 0 cyanocobalamin (vitamin B-12) 1,000 mcg capsule 1,000 mcg PO DAILY Qty: 90 RF: 3 folic acid 1 mg tablet 1,000 mcg PO DAILY 30 Days Qty: 30 RF: 0 thiamine HCl (vitamin B1) 100 mg tablet 200 mg PO BID 30 Days Qty: 120 RF: 0 diclofenac sodium [Voltaren Arthritis Pain] 1 % gel 4 g topical QID Qty: 100 RF: 1 Continued Eliquis 5 mg tablet 5 mg PO BID RF: 0 atorvastatin 40 mg tablet 40 mg PO QAM RF: 0 gabapentin 300 mg capsule 300 mg PO TID PRN (Reason: Pain) RF: 0 Changed sertraline 100 mg tablet 150 mg PO QAM Qty: 45 RF: 0 Discontinued furosemide [Lasix] 40 mg tablet 40 mg PO DAILY Qty: 3 RF: 0 Discharge Orders: Discharge Order (Routine); Ordered 12/26/21 Ordered By: Santi Brewster/Other Patient Handouts: ED PUD Admission Data Admit Date/Time: 12/23/21 13:45 Attending Provider: Santi Christianson Admit Provider: Santi Christianson Primary Care Provider: Jesus Arevalo Other Providers: Juan Kyle Other Interventions: Discharge Summary Assessment (RN) Last Done: 12/26/21 12:22 Coding Level of Care Code D/C DAY MANAGEMENT >30 MINS Diagnoses GIB (gastrointestinal bleeding) K92.2 Acute renal failure N17.9 Acute renal failure type: unspecified Anemia D64.9 Alcohol abuse F10.10 Hypertension I10 History of venous thromboembolism Z86.718 Obstructive sleep apnea G47.33 Anxiety and depression F41.9; F32.9 Generalized weakness R53.1 History of pulmonary embolism Z86.711 Morbid obesity with BMI of 50.0-59.9, adult E66.01; Z68.43 Thrombocytopenia D69.6
[2021-12-26] MEDS ORDERED: PANTOprazole 40 MG TAB PO SCH (21:00)
[2021-12-30 02:37] LABS: IgA Serum 251 mg/dL (47-310); Tis Trans IgA <1.0 U/mL
== END 2021-12-26 13:29 | disposition home or self-care (01) | DRG 378 ==
LOC: EDSEX → ED 09:07 → 2S 13:45
DX: E66.01 Morbid (severe) obesity due to excess calories; Y92.019 Unspecified place in single-family (private) house as the place of occurrence of the external cause; D62 Acute posthemorrhagic anemia; T39.395A Adverse effect of other nonsteroidal anti-inflammatory drugs [NSAID], initial encounter; G47.33 Obstructive sleep apnea (adult) (pediatric); K92.1 Melena; K20.90 Esophagitis, unspecified without bleeding; E78.5 Hyperlipidemia, unspecified; Z86.16 Personal history of COVID-19; Z68.43 Body mass index [BMI] 50.0-59.9, adult; E86.0 Dehydration; Z86.718 Personal history of other venous thrombosis and embolism; Z79.01 Long term (current) use of anticoagulants; F41.8 Other specified anxiety disorders; I10 Essential (primary) hypertension; Z81.2 Family history of tobacco abuse and dependence; K25.4 Chronic or unspecified gastric ulcer with hemorrhage; N17.9 Acute kidney failure, unspecified; F10.220 Alcohol dependence with intoxication, uncomplicated